=== PATIENT | male | born 1980 | race Two or more races ===

== ENCOUNTER 2024-08-06 22:58 | Inpatient (IN) | payer OTHER ==
[~2024-08-06] VITALS: Ht 177.8 cm; Wt 105.0 kg
[2024-08-06] MEDS: SODIUM CHLORIDE 0.9% 1,000 ML IV ONE ×2 (00:40→23:38)
[2024-08-06] MEDS: ACETAMINOPHEN 325 MG TAB PO ONE (23:16)
[2024-08-06] MEDS: metroNIDAZOLE 500MG/100ML 100 ML IV ONE (23:40)
[2024-08-06 23:48] LABS: Basophils # (auto) 0 10 ^3/uL (0-0.2); Basophils % (auto) 0.1 % (0.0-2.0); Eosinophils # (auto) 0 10 ^3/uL (0-0.8); Eosinophils % (auto) 0.1 % (0.0-7.0); Hematocrit 44.5 % (41.0-53.0); Hemoglobin 15.4 g/dL (13.5-17.5); Lymphocytes # (auto) 1.1 10 ^3/uL (0.4-5.4); Lymphocytes % (auto) 4.8 % (10.0-50.0); Mean Corpuscular Hgb Conc. 34.6 g/dL (32.0-36.0); Mean Corpuscular Volume 86.5 fL (80.0-100.0); Monocytes # (auto) 1.4 10 ^3/uL (0-1.3); Monocytes % (auto) 6.3 % (0.0-12.0); Neutrophils # (auto) 19.6 10 ^3/uL (1.6-8.6); Neutrophils % (auto) 88.7 % (37.0-80.0); Platelet Count (auto) 227 10^3/uL (140-450); Red Blood Cells 5.14 10^6/uL (4.5-5.90); Red Cell Distribution Width 13.3 % (11.8-14.3); White Blood Cell 22.1 10^3/uL (4.4-10.8)
[2024-08-06 23:56] LABS: Chloride 103 mmol/L (98-107); Potassium 4.1 mmol/L (3.5-5.1); Sodium 136 mmol/L (136-145)
[2024-08-06 23:57] LABS: Anion Gap 6 (5-15); Calcium 9.8 mg/dL (8.7-10.4); Carbon Dioxide 27 mmol/L (20-31)
[2024-08-07] VITALS (7 sets, daily range): BP systolic 104–114; BP diastolic 64–72; PULSE 85–107; RESP 14–18; TEMP 98–100.7; O2SAT 90–97
[2024-08-07 00:02] LABS: BUN/Creatinine Ratio 8.3 (10.0-20.0); Blood Urea Nitrogen 9 mg/dL (9-23); Glucose 119 mg/dL (74-106)
[2024-08-07 00:08] LABS: INR 1.12 (0.9-1.15); Partial Thromboplastin Time 26.2 SEC (24.5-34.5); Prothrombin Time 11.8 sec (9.3-11.8)
[2024-08-07] MEDS: CIPROFLOXACIN 400MG/200ML 200 ML IV ONE (00:40)
[2024-08-07] MEDS: ONDANSETRON HCL 4 MG/2 ML VIAL IV ONE (02:55)
[2024-08-07] MEDS: MORPHINE SULFATE 4 MG/ML SYR/VIAL IV ONE (02:55)
[2024-08-07] MEDS: HYDROcodone-ACET 5/325MG TAB PO PRN (05:18)
[2024-08-07] MEDS ORDERED: MORPHINE SULFATE INJ 2 MG/ml SYRG IV PRN (06:00)
[2024-08-07] MEDS ORDERED: DOCUSATE SOD 100 MG CAP PO PRN (06:00)
[2024-08-07] MEDS ORDERED: NITROGLYCERIN 0.4 MG SL TAB SL PRN (06:00)
[2024-08-07] MEDS: metroNIDAZOLE 500MG/100ML 100 ML IV SCH (06:20)
[2024-08-07] MEDS: SODIUM CHLORIDE 0.9% 1,000 ML IV SCH (06:20)
[2024-08-07] MEDS: ONDANSETRON HCL 4 MG/2 ML VIAL IV PRN (07:01)
[2024-08-07] MEDS: MORPHINE SULFATE INJ 2 MG/ml SYRG IV PRN (07:02)
[2024-08-07] MEDS: levoFLOXacin 500MG 100 ML IV ONE (07:30)
[2024-08-07 09:02] LABS: Urine Bacteria None Seen /hpf (None Seen)
[2024-08-07 09:14] LABS: Urine Blood 2+ /uL (Negative); Urine Clarity Clear (Clear); Urine Color Yellow (Yellow); Urine Protein, UAD 1+ (Negative); Urine Specific Gravity 1.037 (1.001-1.035); Urine Urobilinogen Normal (Negative); Urine WBC 5 /hpf (0 - 3)
[2024-08-07] MEDS ORDERED: ASCO500T11 PO (10:40)
[2024-08-07] MEDS ORDERED: GARL200T PO (10:40)
[2024-08-07] MEDS: LACTATED RINGER'S 2,200 ML IV ONE (13:41)
[2024-08-07] MEDS: LACTATED RINGER'S 1,000 ML IV SCH (13:50)
[2024-08-07] MEDS ORDERED: ceFAZolin 2 GM/D5W100ml 100 ML IV ONE (15:29)
[2024-08-07] MEDS ORDERED: ACETAMINOPHEN IV 100 ML IV ONE (15:29)
[2024-08-07] MEDS: GABAPENTIN 400 MG CAP PO ONE (15:30)
[2024-08-07] MEDS: ACETAMINOPHEN IV 1000 MG/100ML (10MG/ML) IV ONE (15:30)
[2024-08-07] MEDS: CELECOXIB 100 MG CAP PO ONE (15:30)
[2024-08-07] MEDS ORDERED: CELECOXIB 100 MG CAP ONE (15:36)
[2024-08-07] MEDS ORDERED: GABAPENTIN 400 MG CAP ONE (15:36)
[2024-08-07] MEDS ORDERED: DexAMETHasone SOD PHOS 10MG/1ML VIAL INJ ONE (15:38)
[2024-08-07] MEDS ORDERED: SUGAMMADEX 200mg/2ml Vial (100MG/ML) IV ONE (15:38)
[2024-08-07] MEDS ORDERED: KETOROLAC TROMETH 30 MG/ML 1ML VIAL ONE (15:38)
[2024-08-07] MEDS ORDERED: LIDOCAINE 2% (LOCAL ANESTH.) PF 5ml SDV ONE ×3 (15:38→16:55)
[2024-08-07] MEDS ORDERED: ONDANSETRON HCL 4 MG/2 ML VIAL ONE (15:38)
[2024-08-07] MEDS ORDERED: ROCURONIUM 10MG/ML 10ML VIAL IV ONE (15:39)
[2024-08-07] MEDS ORDERED: GLYCOPYRROLATE 0.2 MG/ML 1ML VIAL ONE (15:39)
[2024-08-07] MEDS ORDERED: PROPOFOL 10 MG/ML 20 ML IV ONE (15:39)
[2024-08-07] MEDS ORDERED: KETAMINE 50mg/ML 1ml syringe ONE (15:43)
[2024-08-07] MEDS ORDERED: fentaNYL CITRATE 100 MCG/2 ML VL ONE (15:45)
[2024-08-07] MEDS ORDERED: LIDOCAINE 1% HCL (LOCAL ANESTH.) INJ 20ML MDV ONE (16:04)
[2024-08-07] MEDS ORDERED: ESMOLOL HCL 10 ML IV ONE (16:48)
[2024-08-07] MEDS ORDERED: HYDROmorphone HCL 2 MG/ML VL/or syr IV PRN (17:30)
[2024-08-07] MEDS ORDERED: NALOXONE HCL 0.4 MG/ML VIAL IV PRN (17:30)
[2024-08-07] MEDS ORDERED: ePHEDrine SULFATE 50 MG/ML AMP IV PRN (17:30)
[2024-08-07] MEDS ORDERED: fentaNYL CITRATE 100 MCG/2 ML VL IV PRN (17:30)
[2024-08-07] MEDS ORDERED: FLUMAZENIL 0.1 MG/ML INJ 10ML MDV IV PRN (17:30)
[2024-08-07] MEDS ORDERED: oxyCODONE HCL 5MG TAB PO PRN (17:30)
[2024-08-07] MEDS ORDERED: ONDANSETRON HCL 4 MG/2 ML VIAL IV PRN (17:30)
[2024-08-07] MEDS ORDERED: hydrALAZINE HCL 20 MG/ML VL IV PRN (17:30)
[2024-08-08] VITALS (8 sets, daily range): BP systolic 104–125; BP diastolic 69–83; PULSE 75–80; RESP 17–19; TEMP 97.2–98.8; O2SAT 94–100
[2024-08-08 06:37] LABS: Basophils # (auto) 0 10 ^3/uL (0-0.2); Eosinophils # (auto) 0 10 ^3/uL (0-0.8); Eosinophils % (auto) 0.1 % (0.0-7.0); Hematocrit 38.3 % (41.0-53.0); Lymphocytes # (auto) 0.9 10 ^3/uL (0.4-5.4); Lymphocytes % (auto) 4.3 % (10.0-50.0); Mean Corpuscular Hemoglobin 29.5 pg (28.0-32.0); Mean Corpuscular Hgb Conc. 33.9 g/dL (32.0-36.0); Mean Corpuscular Volume 87.1 fL (80.0-100.0); Monocytes # (auto) 0.9 10 ^3/uL (0-1.3); Monocytes % (auto) 4.1 % (0.0-12.0); Neutrophils # (auto) 19.9 10 ^3/uL (1.6-8.6); Neutrophils % (auto) 91.5 % (37.0-80.0); Platelet Count (auto) 217 10^3/uL (140-450); Red Cell Distribution Width 13.7 % (11.8-14.3); White Blood Cell 21.8 10^3/uL (4.4-10.8)
[2024-08-08 06:49] LABS: Alanine Aminotransferase 13 U/L (7-40); Alkaline Phosphatase 60 U/L (46-116); Anion Gap 6 (5-15); Aspartate Aminotransferase 11 U/L (13-40); Blood Urea Nitrogen 12 mg/dL (9-23); Calcium 9.5 mg/dL (8.7-10.4); Carbon Dioxide 26 mmol/L (20-31); Chloride 107 mmol/L (98-107); Glucose 120 mg/dL (74-106); Potassium 4.1 mmol/L (3.5-5.1); Sodium 139 mmol/L (136-145)
[2024-08-08 06:50] LABS: Bilirubin, Total 0.5 mg/dL (0.2-1.0); Total Protein 6.3 g/dL (5.7-8.2)
[2024-08-08] MEDS: levoFLOXacin 500MG 100 ML IV SCH (09:48)
[2024-08-09] VITALS (8 sets, daily range): BP systolic 116–135; BP diastolic 72–88; PULSE 71–89; RESP 18–20; TEMP 98.1–99.1; O2SAT 94–96
[2024-08-09] MEDS: KETOROLAC TROMETH 30 MG/ML 1ML VIAL IV ONE (01:53)
[2024-08-09] MEDS: KETOROLAC TROMETH 30 MG/ML 1ML VIAL IV PRN (15:41)
[2024-08-10] VITALS (7 sets, daily range): BP systolic 108–146; BP diastolic 68–93; PULSE 57–78; RESP 16–22; TEMP 97.8–98.6; O2SAT 95–99
[2024-08-10 10:19] LABS: Basophils # (auto) 0 10 ^3/uL (0-0.2); Basophils % (auto) 0.1 % (0.0-2.0); Eosinophils # (auto) 0.1 10 ^3/uL (0-0.8); Eosinophils % (auto) 1.3 % (0.0-7.0); Hematocrit 38.1 % (41.0-53.0); Hemoglobin 12.9 g/dL (13.5-17.5); Lymphocytes # (auto) 1.3 10 ^3/uL (0.4-5.4); Lymphocytes % (auto) 11.5 % (10.0-50.0); Mean Corpuscular Hemoglobin 29.2 pg (28.0-32.0); Mean Corpuscular Hgb Conc. 33.8 g/dL (32.0-36.0); Mean Corpuscular Volume 86.5 fL (80.0-100.0); Monocytes # (auto) 0.8 10 ^3/uL (0-1.3); Monocytes % (auto) 6.8 % (0.0-12.0); Neutrophils # (auto) 8.9 10 ^3/uL (1.6-8.6); Neutrophils % (auto) 80.3 % (37.0-80.0); Platelet Count (auto) 275 10^3/uL (140-450); Red Cell Distribution Width 13.4 % (11.8-14.3); White Blood Cell 11.1 10^3/uL (4.4-10.8)
[2024-08-10] MEDS: ACETAMINOPHEN 325 MG TAB PO PRN (21:31)
[2024-08-11] VITALS (7 sets, daily range): BP systolic 131–138; BP diastolic 76–86; PULSE 55–70; RESP 19–21; TEMP 98–99.6; O2SAT 93–97
[2024-08-11] MEDS ORDERED: LEVO500T91 PO (13:20)
[2024-08-11] MEDS ORDERED: HYDR-4902 PO (13:20)
[2024-08-11] MEDS ORDERED: METR-344 PO (13:20)
== END 2024-08-11 15:10 | disposition home or self-care (01) | DRG 853 ==
LOC: ER 22:58 → TELE 08-07 06:00 → TELE-EAST 08-07 09:03
PROVIDERS: ADMIT Nurse Practitioner Family; ATTEND Family Medicine
PROC: 0DNW4ZZ Release Peritoneum, Percutaneous Endoscopic Approach (ICD-10-PCS; 2024-08-07)
PROC: 0DTJ4ZZ Resection of Appendix, Percutaneous Endoscopic Approach (ICD-10-PCS; principal; 2024-08-07 15:35)
DX: A41.9 Sepsis, unspecified organism (principal); K35.33 Acute appendicitis with perforation, localized peritonitis, and gangrene, with abscess; E86.0 Dehydration; K66.0 Peritoneal adhesions (postprocedural) (postinfection); E66.01 Morbid (severe) obesity due to excess calories; Z88.0 Allergy status to penicillin; Z79.899 Other long term (current) drug therapy; Z68.33 Body mass index [BMI] 33.0-33.9, adult
CPT/HCPCS: 36415; 74176; 80048; 80053; 81001; 85025; 85610; 85730; 87081; 96365; 96367; 96375; 97163; 99291; G0378; J0131; J1100; J1885; J1956; J2003; J2405; J2704; J3490

== ENCOUNTER 2024-08-19 14:02 | Inpatient (IN) | payer OTHER ==
[~2024-08-19] VITALS: Ht 175.3 cm; Wt 99.6 kg
[~2024-08-19 14:02] MED LIST: ASCO500T11 PO; GARL200T PO; HYDR-4902 PO; LEVO500T91 PO; METR-344 PO
--- NOTE | 2024-08-19 15:20 | ED.PDOC ---
GI ASSESSMENT HPI Comments HPI: Poor Historian. 44-year-old male comes to the emergency department for evaluation of abdominal pain in the last 2 hours after his MARYSE drain was removed. Patient underwent a laparoscopic procedure on August [address] Adorno for an appendicitis that ruptured. Patient had his drain removed today by Dr. Adorno in the clinic. Afterwards patient started developing some lower abdominal pain with nausea. He took some [place] at home. Last bowel movement was two in the morning. Patient presents here for evaluation of acute pain. Patient was noted to be tachycardic heart rate 118 blood pressure is 99/73. Patient is allergic to penicillin. Past Medcial History: Denies any Past Surgical History: Appendectomy on August [address] Adorno REVIEW OF SYSTEMS: CONSTITUTIONAL: Denies acute: fever, diaphoresis, chills, HEAD: Denies acute: headache, photophobia Eyes: Denies acute: Double vision, vision loss, eye pain, eye discharge. EARS: Denies acute: tinnitus, hearing loss, ear discharge, ear pain, THROAT: Denies acute: sore throat, swelling, difficulty swallowing , pain with swallowing, change in voice. NECK: Denies acute: neck pain, neck swelling, stiff neck. HEART: Denies acute : chest pain, palpitations, LUNGS: Denies acute: SOB, wheezing, cough, hemoptysis ABDOMEN: Denies acute: Vomiting, diarrhea, melena , hematemesis, hematochezia SKIN: Denies acute: rash, redness, lesions, itchiness. EXTREMITIES: Denies acute: calf pain, numbness, tingling, weakness, denies pain in extremity. Denies acute: Low back pain. Neuro: Denies acute: focal neurological deficit, motor or sensory focal neurological deficit, tremors, seizure like activity, confusion, dizziness, change in mental status, loss of bowel or bladder function, cauda equina like symptoms. : Denies acute: dysuria, hematuria, flank pain, increase in urinary frequency. PSYCH: Denies acute: hallucination, suicidal ideation, homicidal ideation. PHYSICAL EXAM: General: Moderate acute distress, awake and alert. Head: normocephalic, atraumatic. Neck: supple, trachea is midline, no swelling. Throat: Normal phonation. Eyes:, no erythema, no purulent discharge, no proptosis, no icterus. Heart: regular tachycardia, no significant murmur appreciated. Lungs: no apparent respiratory distress, Able to speak in full sentences. No wheezing, no rhonchi, no crackles. No stridors Clear to auscultation bilaterally. Abdomen: Suprapubic periumbilical and lower abdominal tender to palpation, non distended, soft, no guarding, no rebound, + bowel sounds. Neuro: Awake, Alert, oriented to name, self, situation, follows commands GCS=15. Speech is normal. Skin: no petechia, no purpura, no cyanosis, non-pale, not jaundice. Lower extremities: --no - Pitting edema no deformity, no focal swelling, no calf TTP. Makes eye contact. moves all four extremities. Face: no apparent facial droop. ED course: At this time 5:[address] Adorno the surgeon came and evaluated the patient. He reviewed the CT scan report and images. Patient is allergic to penicillin and levofloxacin. Levofloxacin causes him bradycardia. I could not order him Cipro. Cipro was canceled. Dr. Adorno recommends adding vancomycin. Time Seen by MD: 14:28 Reviewed Notes: Nurses Notes, Medications, Allergies Allergies: Coded Allergies: Levofloxacin (Verified Allergy, Severe, Bradycardia, 08/19/24) Penicillins (Verified Allergy, Unknown, 08/06/24) Home Meds Active Scripts Hydrocodone-Acetaminophen (Hydrocodone Bitartrate/AC 5-325 mg) 1 Tab Tab, 1 TAB PO QID PRN, #30 TAB Prov:CHANDRIKA VELASCO MD 08/11/24 Metronidazole (Flagyl) 500 Mg Tab, 1 TAB PO TID, #30 TAB Prov:CHANDRIKA VELASCO MD 08/11/24 Levofloxacin Hemihydrate (LEVAQUIN 500 MG) 500 Mg Tab, 1 TAB PO DAILY, #10 TAB Prov:CHANDRIKA VELASCO MD 08/11/24 Reported Medications Allium Sativan Extract (GARLIC) 200 Mg Tab, 1 TAB PO DAILY, TAB 08/07/24 Ascorbic Acid (VITAMIN C TABLET) 500 Mg Tb, 1 TAB PO DAILY, #30 TAB 3 Refills 08/07/24 Information Source: Patient Past Medical History Surgical History: Denies all surgeries Family History Family History: Unknown Social History Smoker: Non-Smoker Alcohol: Denies ETOH Use Drugs: Denies Drug Use Lives In: Home Was a procedure done? Was a procedure done?: No GI differential Dx Differential Diagnosis: Other (DDX include but not limited to diverticulitis, colitis, gastroenteritis, acute abdomen, SBO, enteritis, constipation, volvulus, appendicitis, Gallbladder disease, choledocolithiasis, ascending cholangitis, pancreatitis, intraAbdominal mass/neoplasm, hepatitis, UTI, pylonephritis, kidney stone, aneurysm, dissection, Inflammatory bowel disease, gastroparesis, ischemic bowel.) X-Ray, Labs, Meds, VS Vital Signs Date Time Temp Pulse Resp B/P (MAP) Pulse Ox O2 Delivery O2 Flow Rate FiO2 08/19/24 22:00 99.1 91 21 110/70 (83) 95 99.1 08/19/24 21:15 114/77 08/19/24 20:01 91 08/19/24 19:28 93 19 98 Room Air* 0 21 08/19/24 19:28 101.7 93 21 114/77 (89) 98 101.7 08/19/24 19:25 100/63 08/19/24 18:00 91 17 114/77 (89) 97 08/19/24 17:53 89 19 98 Room Air* 0 21 08/19/24 16:06 109/59 08/19/24 16:00 114 17 97 Room Air 08/19/24 16:00 98.9 114 17 109/59 (76) 97 98.9 08/19/24 15:49 98.0 118 21 99/73 (82) 97 Lab Test 08/19/24 17:46 08/19/24 15:23 Range/Units Lactic Acid Level 1.1 1.9 0.4-2.0 mmol/L White Blood Count 29.5 H 4.4-10.8 10^3/uL Red Blood Count 5.21 4.5-5.90 10^6/uL Hemoglobin 15.3 13.5-17.5 g/dL Hematocrit 44.5 41.0-53.0 % Mean Corpuscular Volume 85.5 80.0-100.0 fL Mean Corpuscular Hemoglobin 29.4 28.0-32.0 pg Mean Corpuscular Hemoglobin Concent 34.4 32.0-36.0 g/dL Red Cell Distribution Width 13.4 11.8-14.3 % Platelet Count 513 H 140-450 10^3/uL Mean Platelet Volume 7.1 6.9-10.8 fL Neutrophils (%) (Auto) 37.0-80.0 % Lymphocytes (%) (Auto) 10.0-50.0 % Monocytes (%) (Auto) 0.0-12.0 % Basophils (%) (Auto) 0.0-2.0 % Neutrophils # (Auto) 1.6-8.6 10 ^3/uL Lymphocytes # (Auto) 0.4-5.4 10 ^3/uL Monocytes # (Auto) 0-1.3 10 ^3/uL Differential Total Cells Counted 100.0 100 Neutrophils % (Manual) 86 H 37.0-80.0 Band Neutrophils % (Manual) 0 Lymphocytes % (Manual) 4 L 10.0-50.0 Monocytes % (Manual) 10 0-12 Eosinophils % (Manual) 0 0-7 Basophils % (Manual) 0 0.0-2.0 Metamyelocytes % (manual) 0 Myelocytes % (Manual) 0 Promyelocytes % (Manual) 0 Blast Cells % (Manual) 0 Reactive Lymphocytes 0 Platelet Estimate Increased Sodium Level 131 L 136-145 mmol/L Potassium Level 4.4 3.5-5.1 mmol/L Chloride Level 99 98-107 mmol/L Carbon Dioxide Level 26 20-31 mmol/L Anion Gap 6 5-15 Blood Urea Nitrogen 10 9-23 mg/dL Creatinine 0.98 0.700-1.30 mg/dL Glomerular Filtration Rate Calc 96 >90 mL/min BUN/Creatinine Ratio 10.2 10.0-20.0 Serum Glucose 132 H 74-106 mg/dL Calcium Level 10.0 8.7-10.4 mg/dL Magnesium Level 2.2 1.6-2.6 mg/dL Total Bilirubin 0.7 0.2-1.0 mg/dL Aspartate Amino Transferase (AST) 13 13-40 U/L Alanine Aminotransferase (ALT) 35 7-40 U/L Alkaline Phosphatase 71 46-116 U/L Total Protein 7.9 5.7-8.2 g/dL Albumin 4.8 3.2-4.8 g/dL Lipase 36 12-53 U/L Microbiology Date/Time Source Procedure Growth Status 08/19/24 15:23 Blood Blood Culture - Preliminary NO GROWTH AFTER 72 HOURS OF INCUBATION. Resulted [facility] [id number] [facility] [id number] Ph: [phone] DIAGNOSTIC IMAGING Diagnostic Imaging Report : [id number] Signed PATIENT: CAPRI MASCORRO ACCT: [id number] UNIT: [id number] : 1980 LOC: ER ROOM / BED: / AGE / SEX: 44 / M ADM STATUS: REG ER SERVICE 1512 ORDERING PHYSICIAN: NELSY BUCKNRE DO PROCEDURE(s): ABPLIV - CT AB PEL WITH IV CON ONLY REASON: post op Abd Pain ORDER NUMBER(s): [id number], ACCESSION NUMBER(s): [id number] Exam: CT CT AB PEL WITH IV CON ONLY History: post op Abd Pain COMPARISON: None Technique: Multidetector spiral CT of the abdomen and pelvis was performed from lung bases to pubic symphysis. Intravenous contrast was administered during this examination. Portal venous imaging was obtained. Axial, coronal and sagittal multiplanar reformats were performed by the technologist on a separate workstation. Radiation Dose : Abdomen/Pelvis: CTDIvol 16.71 mGy, DLP 963.88 mGy*cm. CONTRAST: Type of contrast: Omni 300 Contrast injected: 100 mL Findings: Lung Bases: No acute or significant lung base finding. Normal heart size. No pleural or pericardial effusion. Liver: The liver is normal in size. No focal lesions. Normal hepatic vascular enhancement. Gallbladder and biliary Tree: Unremarkable Spleen: Unremarkable Pancreas: The pancreas is normal in appearance without focal lesions or abnormal enhancement. Adrenal Glands: Unremarkable Kidneys: No hydronephrosis. Bilateral renal cysts measuring up to 12mm on the right. Bladder: Unremarkable Bowel: The stomach is grossly normal in appearance. There postsurgical changes in the right lower quadrant. There is free fluid with some peripheral enhancement measuring up to 56 mm in this region. There are loops of small bowel with wall thickening in this region. Ascites: There is free fluid in the left and dependent pelvis. Lymphadenopathy: No mesenteric, retroperitoneal or periportal lymphadenopathy. Abdominal wall and Mesentery: Unremarkable. Vasculature: The visualized abdominal aorta is normal in size and caliber. Abdominal and pelvic vessels demonstrate normal enhancement. Pelvic Organs: Unremarkable Musculoskeletal: No aggressive focal bony lesions, acute fractures or dislocation. IMPRESSION: 1. Postsurgical changes in the right lower quadrant with a possible developing abscess measuring up to 56mm. Additional free fluid in the left and dependent pelvis. Associated small bowel wall thickening. Findings could be related to a bowel leak. Clinical correlation and continued follow-up is recommended. Drainage of the abscess could be performed. Radiation optimization: All CT scans at this facility use at least one of these dose optimization techniques: Automated exposure control mA and/or kV adjustment per patient size (includes targeted exams where dose is matched to clinical indication) or iterative reconstruction. HS:Y ATED BY: ABE CONTRERAS MD DICTATED DATE/TIME: 08/19/241653 SIGNED BY: ABE CONTRERAS MD SIGNED DATE/TIME: 08/19/241653 CC: [place] [address] Ph: [phone] DIAGNOSTIC IMAGING Diagnostic Imaging Report : [id number] Signed PATIENT: CAPRI MASCORRO ACCT: [id number] UNIT: [id number] : 1980 LOC: ER ROOM / BED: / AGE / SEX: 44 / M ADM STATUS: REG ER SERVICE 1512 ORDERING PHYSICIAN: NELSY BUCKNER DO PROCEDURE(s): ABPLIV - CT AB PEL WITH IV CON ONLY REASON: post op Abd Pain ORDER NUMBER(s): [id number], ACCESSION NUMBER(s): [id number] Exam: CT CT AB PEL WITH IV CON ONLY History: post op Abd Pain COMPARISON: None Technique: Multidetector spiral CT of the abdomen and pelvis was performed from lung bases to pubic symphysis. Intravenous contrast was administered during this examination. Portal venous imaging was obtained. Axial, coronal and sagittal multiplanar reformats were performed by the technologist on a separate workstation. Radiation Dose : Abdomen/Pelvis: CTDIvol 16.71 mGy, DLP 963.88 mGy*cm. CONTRAST: Type of contrast: Omni 300 Contrast injected: 100 mL Findings: Lung Bases: No acute or significant lung base finding. Normal heart size. No pleural or pericardial effusion. Liver: The liver is normal in size. No focal lesions. Normal hepatic vascular enhancement. Gallbladder and biliary Tree: Unremarkable Spleen: Unremarkable Pancreas: The pancreas is normal in appearance without focal lesions or abnormal enhancement. Adrenal Glands: Unremarkable Kidneys: No hydronephrosis. Bilateral renal cysts measuring up to 12mm on the right. Bladder: Unremarkable Bowel: The stomach is grossly normal in appearance. There postsurgical changes in the right lower quadrant. There is free fluid with some peripheral enhancement measuring up to 56 mm in this region. There are loops of small bowel with wall thickening in this region. Ascites: There is free fluid in the left and dependent pelvis. Lymphadenopathy: No mesenteric, retroperitoneal or periportal lymphadenopathy. Abdominal wall and Mesentery: Unremarkable. Vasculature: The visualized abdominal aorta is normal in size and caliber. Abdominal and pelvic vessels demonstrate normal enhancement. Pelvic Organs: Unremarkable Musculoskeletal: No aggressive focal bony lesions, acute fractures or dislocation. IMPRESSION: 1. Postsurgical changes in the right lower quadrant with a possible developing abscess measuring up to 56mm. Additional free fluid in the left and dependent pelvis. Associated small bowel wall thickening. Findings could be related to a bowel leak. Clinical correlation and continued follow-up is recommended. Drainage of the abscess could be performed. Radiation optimization: All CT scans at this facility use at least one of these dose optimization techniques: Automated exposure control mA and/or kV adjustment per patient size (includes targeted exams where dose is matched to clinical indication) or iterative reconstruction. HS:Y ATED BY: ABE CONTRERAS MD DICTATED DATE/TIME: 08/19/241653 SIGNED BY: ABE CONTRERAS MD SIGNED DATE/TIME: 08/19/241653 CC: [place] [address] Ph: [phone] DIAGNOSTIC IMAGING Diagnostic Imaging Report : [id number] Signed PATIENT: CAPRI MASCORRO ACCT: [id number] UNIT: [id number] : 1980 LOC: ER ROOM / BED: / AGE / SEX: 44 / M ADM STATUS: REG ER SERVICE 1512 ORDERING PHYSICIAN: NELSY BUCKNER DO PROCEDURE(s): CXRP - CHEST PORTABLE REASON: post op Abd Pain ORDER NUMBER(s): [id number], ACCESSION NUMBER(s): [id number] CHEST RADIOGRAPH Indication:post op Abd Pain Technique: Single frontal view of the chest was obtained COMPARISON: None FINDINGS: Lines and Tubes: None Lungs: Bibasilar subsegmental atelectasis. Pleura: No effusion. No pneumothorax. Cardiomediastinal contours: Unremarkable Bones: Unremarkable IMPRESSION: Bibasilar subsegmental atelectasis. ATED BY: FELIX SHAH MD DICTATED DATE/TIME: 08/19/241557 SIGNED BY: FELIX SHAH MD SIGNED DATE/TIME: 08/19/241557 CC: Time of 1ST Reevaluation: 17:00 Reevaluation 1ST: Improved Time of 2ND Reevaluation: 17:03 (The case was discussed with the general surgeon team (HPI, physical exam, labs and diagnostic tests that were available at the time of disposition, ED course, treatment plan) on the phone. He is familiar with this patient. He recommends admission to the hospital and he will follow in consult. He agrees with our management of antibiotics and fluids and NPO. He recommends to contact IR if possible today for abscess drainage. Dr. Adorno) Reevaluation 2ND: Unchanged Time of 3RD Reevaluation: 17:06 (I tried to reach the radiologist however they are gone for the day. No radiologist available on campus at this time.) Consultation: Surgery Patient Education/Counseling: Diagnosis, Treatment Family Education/Counseling: Diagnosis, Treatment Comments Patient presented with the above HPI.---abdominal pain postop---workup was initiated. patient was found with the above mentioned diagnosis. Patient was given: Vancomycin, Cipro and Flagyl, Zofran fentanyl, Tylenol IV 1 g, multiple NS fluid bolus, fentanyl, sepsis protocol was initiated Patient ED course and VS have been stabilized. Patient has been reassessed in the ED and remained in a stable condition. Pertinent incidental findings were discussed with the patient and/or family. Patient/family voices understanding and is agreeable with plan. Patient has been observed in the ED adequate length of time to insure improvement/stability. patient was admitted to the medicine team for further evaluation and treatment of their presentation. All the reports of any imaging studies that were ordered by myself were reviewed by myself. Departure 1 Departure Time of Disposition: 16:06 Impression: Primary Impression: Post op infection Additional Impressions: Leukocytosis Sepsis Postoperative complication Intra-abdominal abscess Fever Disposition: 09 ADMITTED INPATIENT Admit to: Tele Condition: Guarded Discharged With: Self Critical Care Note Critical Care Time?: Yes (1 hr-critical care time only) NELSY BUCKNER DO Aug 19, 2024 15:20
[2024-08-19 15:37] LABS: Hemoglobin 15.3 g/dL (13.5-17.5)
[2024-08-19 15:38] LABS: Hematocrit 44.5 % (41.0-53.0); Mean Corpuscular Hemoglobin 29.4 pg (28.0-32.0); Mean Corpuscular Hgb Conc. 34.4 g/dL (32.0-36.0); Mean Corpuscular Volume 85.5 fL (80.0-100.0); Platelet Count (auto) 513 10^3/uL (140-450); Red Blood Cells 5.21 10^6/uL (4.5-5.90); Red Cell Distribution Width 13.4 % (11.8-14.3); White Blood Cell 29.5 10^3/uL (4.4-10.8)
[2024-08-19 15:42] LABS: Band Neutrophils % (manual) 0; Basophils % (manual) 0 (0.0-2.0); Blast Cells 0; Eosinophils % (manual) 0 (0-7); Metamyelocytes % 0; Myelocytes % 0; Promyelocytes % 0; Reactive Lymphocytes 0
[2024-08-19 15:52] LABS: Alanine Aminotransferase 35 U/L (7-40); Albumin 4.8 g/dL (3.2-4.8); Alkaline Phosphatase 71 U/L (46-116); Anion Gap 6 (5-15); Aspartate Aminotransferase 13 U/L (13-40); BUN/Creatinine Ratio 10.2 (10.0-20.0); Blood Urea Nitrogen 10 mg/dL (9-23); Carbon Dioxide 26 mmol/L (20-31); Chloride 99 mmol/L (98-107); Glucose 132 mg/dL (74-106); Lipase 36 U/L (12-53); Magnesium 2.2 mg/dL (1.6-2.6); Potassium 4.4 mmol/L (3.5-5.1); Sodium 131 mmol/L (136-145)
[2024-08-19 15:53] LABS: Bilirubin, Total 0.7 mg/dL (0.2-1.0); Total Protein 7.9 g/dL (5.7-8.2)
--- NOTE | 2024-08-19 16:00 | DVH ---
CHEST RADIOGRAPH Indication:post op Abd Pain Technique: Single frontal view of the chest was obtained COMPARISON: None FINDINGS: Lines and Tubes: None Lungs: Bibasilar subsegmental atelectasis. Pleura: No effusion. No pneumothorax. Cardiomediastinal contours: Unremarkable Bones: Unremarkable IMPRESSION: Bibasilar subsegmental atelectasis.
[2024-08-19] MEDS: ONDANSETRON HCL 4 MG/2 ML VIAL IV ONE (16:03)
[2024-08-19] MEDS: fentaNYL CITRATE 100 MCG/2 ML VL IV ONE ×3 (16:06→21:15)
[2024-08-19] MEDS: SODIUM CHLORIDE 0.9% 1,000 ML IV ONE ×3 (16:07→19:20)
[2024-08-19] MEDS: CIPROFLOXACIN 400MG/200ML 200 ML IV ONE (16:15)
[2024-08-19] MEDS: IOHEXOL 300 MG/ML 100ML BOTTLE IJ ONE (16:18)
[2024-08-19 16:34] LABS: Lymphocytes % (manual) 4 (10.0-50.0); Monocytes % (manual) 10 (0-12); Platelet Estimate Increased
--- NOTE | 2024-08-19 16:57 | DVH ---
Exam: CT CT AB PEL WITH IV CON ONLY History: post op Abd Pain COMPARISON: None Technique: Multidetector spiral CT of the abdomen and pelvis was performed from lung bases to pubic symphysis. Intravenous contrast was administered during this examination. Portal venous imaging was obtained. Axial, coronal and sagittal multiplanar reformats were performed by the technologist on a separate workstation. Radiation Dose : Abdomen/Pelvis: CTDIvol 16.71 mGy, DLP 963.88 mGy*cm. CONTRAST: Type of contrast: Omni 300 Contrast injected: 100 mL Findings: Lung Bases: No acute or significant lung base finding. Normal heart size. No pleural or pericardial effusion. Liver: The liver is normal in size. No focal lesions. Normal hepatic vascular enhancement. Gallbladder and biliary Tree: Unremarkable Spleen: Unremarkable Pancreas: The pancreas is normal in appearance without focal lesions or abnormal enhancement. Adrenal Glands: Unremarkable Kidneys: No hydronephrosis. Bilateral renal cysts measuring up to 12mm on the right. Bladder: Unremarkable Bowel: The stomach is grossly normal in appearance. There postsurgical changes in the right lower donna drant. There is free fluid with some peripheral enhancement measuring up to 56 mm in this region. The re are loops of small bowel with wall thickening in this region. Ascites: There is free fluid in the left and dependent pelvis. Lymphadenopathy: No mesenteric, retroperitoneal or periportal lymphadenopathy. Abdominal wall and Mesentery: Unremarkable. Vasculature: The visualized abdominal aorta is normal in size and caliber. Abdominal and pelvic vess els demonstrate normal enhancement. Pelvic Organs: Unremarkable Musculoskeletal: No aggressive focal bony lesions, acute fractures or dislocation. IMPRESSION: 1. Postsurgical changes in the right lower quadrant with a possible developing abscess measuring up t o 56mm. Additional free fluid in the left and dependent pelvis. Associated small bowel wall thickenin g. Findings could be related to a bowel leak. Clinical correlation and continued follow-up is recomme nded. Drainage of the abscess could be performed. Radiation optimization: All CT scans at this facility use at least one of these dose optimization kendal hniques: Automated exposure control mA and/or kV adjustment per patient size (includes targeted exams where dose is matched to clinical indication) or iterative reconstruction. HS:Y
[2024-08-19] MEDS: metroNIDAZOLE 500MG/100ML 100 ML IV ONE (17:33)
[2024-08-19 17:53] VITALS: PULSE 89; RESP 19; O2SAT 98
[2024-08-19] MEDS ORDERED: VANCOMYCIN PER PHARMACY 0 MG IV SCH (18:00)
--- NOTE | 2024-08-19 18:16 | DVHINCON2 ---
Date of service: Aug 19, 2024 Family History: FH: heart disease G8 MOTHER G8 FATHER G8 BROTHER Parents G8 MOTHER G8 FATHER Allergies: Coded Allergies: Levofloxacin (Verified Allergy, Severe, Bradycardia, 08/19/24) Penicillins (Verified Allergy, Unknown, 08/06/24) Home Meds Active Scripts Hydrocodone-Acetaminophen (Hydrocodone Bitartrate/AC 5-325 mg) 1 Tab Tab, 1 TAB PO QID PRN, #30 TAB Prov:CHANDRIKA VELASCO MD 08/11/24 Metronidazole (Flagyl) 500 Mg Tab, 1 TAB PO TID, #30 TAB Prov:CHANDRIKA VELASCO MD 08/11/24 Levofloxacin Hemihydrate (LEVAQUIN 500 MG) 500 Mg Tab, 1 TAB PO DAILY, #10 TAB Prov:CHANDRIKA VELASCO MD 08/11/24 Reported Medications Allium Sativan Extract (GARLIC) 200 Mg Tab, 1 TAB PO DAILY, TAB 08/07/24 Ascorbic Acid (VITAMIN C TABLET) 500 Mg Tb, 1 TAB PO DAILY, #30 TAB 3 Refills 08/07/24 Current Medications Current Medications Medications (Trade) Dose Ordered Sig/Leonela Route PRN Reason Start Time Stop Time Status Last Admin Vancomycin HCl 0 ml @ 0 mls/hr UD IV 08/19/24 18:00 UNV Vital Signs Vital Signs Date Time Temp Pulse Resp B/P (MAP) Pulse Ox O2 Delivery O2 Flow Rate FiO2 08/19/24 17:53 89 19 98 Room Air* 0 21 08/19/24 16:06 109/59 08/19/24 16:00 98.9 98.9 Labs/Diagnostic Data Labs Test 08/19/24 17:46 08/19/24 15:23 Range/Units White Blood Count 29.5 H 4.4-10.8 10^3/uL Red Blood Count 5.21 4.5-5.90 10^6/uL Hemoglobin 15.3 13.5-17.5 g/dL Hematocrit 44.5 41.0-53.0 % Mean Corpuscular Volume 85.5 80.0-100.0 fL Mean Corpuscular Hemoglobin 29.4 28.0-32.0 pg Mean Corpuscular Hemoglobin Concent 34.4 32.0-36.0 g/dL Red Cell Distribution Width 13.4 11.8-14.3 % Platelet Count 513 H 140-450 10^3/uL Mean Platelet Volume 7.1 6.9-10.8 fL Neutrophils (%) (Auto) 37.0-80.0 % Lymphocytes (%) (Auto) 10.0-50.0 % Monocytes (%) (Auto) 0.0-12.0 % Basophils (%) (Auto) 0.0-2.0 % Neutrophils # (Auto) 1.6-8.6 10 ^3/uL Lymphocytes # (Auto) 0.4-5.4 10 ^3/uL Monocytes # (Auto) 0-1.3 10 ^3/uL Differential Total Cells Counted 100.0 100 Neutrophils % (Manual) 86 H 37.0-80.0 Band Neutrophils % (Manual) 0 Lymphocytes % (Manual) 4 L 10.0-50.0 Monocytes % (Manual) 10 0-12 Eosinophils % (Manual) 0 0-7 Basophils % (Manual) 0 0.0-2.0 Metamyelocytes % (manual) 0 Myelocytes % (Manual) 0 Promyelocytes % (Manual) 0 Blast Cells % (Manual) 0 Reactive Lymphocytes 0 Platelet Estimate Increased Sodium Level 131 L 136-145 mmol/L Potassium Level 4.4 3.5-5.1 mmol/L Chloride Level 99 98-107 mmol/L Carbon Dioxide Level 26 20-31 mmol/L Anion Gap 6 5-15 Blood Urea Nitrogen 10 9-23 mg/dL Creatinine 0.98 0.700-1.30 mg/dL Glomerular Filtration Rate Calc 96 >90 mL/min BUN/Creatinine Ratio 10.2 10.0-20.0 Serum Glucose 132 H 74-106 mg/dL Calcium Level 10.0 8.7-10.4 mg/dL Magnesium Level 2.2 1.6-2.6 mg/dL Total Bilirubin 0.7 0.2-1.0 mg/dL Aspartate Amino Transferase (AST) 13 13-40 U/L Alanine Aminotransferase (ALT) 35 7-40 U/L Alkaline Phosphatase 71 46-116 U/L Total Protein 7.9 5.7-8.2 g/dL Albumin 4.8 3.2-4.8 g/dL Lipase 36 12-53 U/L Assessment [id number] RLQ INTRAABD FLUID COLLECTION/ABSCESS S/P LAP APPENDECTOMY DRAINAGE OF INTRAABD ABSCESS FOR RUPTURED APPENDICITIS AFEBRILE VSS ABD SOFT TENDER RLQ REPEAT CT SCAN PELVIC FLUID COLLECTION CONSIDER IR DRAINAGE JENNIFER NPO IV ABX REPEAT CT SCAN ABD PELVIS WITH PO CONTRAST INDICATED BASED UPON ONGOING EVAL NURSE AND FAMILY AT BEDSIDE Plan discussed with: Patient DAYANARA SADLER MD Aug 19, 2024 18:16
--- NOTE | 2024-08-19 18:43 | DVHINCON2 ---
DATE OF CONSULTATION: 08/19/2024 HISTORY OF PRESENT ILLNESS: This patient is 44 years old, coming to the Emergency Room known to me from previous surgery. He had a recent appendectomy done on 08/07/2024 at this facility. He was found to have acute ruptured appendicitis with intra-abdominal abscess. He underwent urgent surgery, drainage of the abscess as well as laparoscopic appendectomy. He had a smooth postoperative recovery with no complications when was discharged with a drainage tube in place that was draining and it was draining clear fluid and he had no issues during his stay at home and then he was seen by me in my office with no complaints of pain. No nausea, vomiting. No fever or chills. No issues with bowel activity. He had a drainage tube in place that was not draining much, minimal drainage and there was no tenderness. Wounds were healing well with no complications and then decision was made to remove the drainage tube. Following that, he was fine. He left the hospital with no complaints of pain, but then comes back to the Emergency Room with abdominal pain and repeat CT scan was done, labs were done and the white cell count came back at 29.5 and his imaging studies showed a possibility of a new collection that presumably was not related to the previous surgery or might have not been drainable with the drainage tube that was in place, but it was related to the previous surgery that was in a different location away from the drainage tube or the drainage tube was not functioning well for the collection to be drained out, but having no symptoms and having no fevers, this was not suspected but based upon his clinical exam in the Emergency Room when I got to see him, he was in pain and his white cell count was elevated and the CAT scan showed this right lower quadrant fluid collection. PAST MEDICAL HISTORY: Please refer to records. PAST SURGICAL HISTORY: As mentioned above. PHYSICAL EXAMINATION: VITAL SIGNS: Afebrile, stable signs. HEENT: With no evidence of pallor, cyanosis, or jaundice. NECK: Supple, nontender with no thyromegaly or lymphadenopathy. CHEST AND LUNGS: Clear. HEART: Within normal limits. ABDOMEN: Soft. He is tender in the right lower abdomen. Minimal rebound. EXTREMITIES: Unremarkable. NEUROLOGIC: Intact. The drain site does not appear to be having any drainage. The dressing is dry. CLINICAL IMPRESSION: Based upon my clinical impression and imaging, there is a residual or new right lower quadrant fluid collection, suspected abscess based upon his high white cell count and pain and fever. PLAN: Will be to keep him n.p.o. with close observation and also consider IR drainage and based upon that evaluation, resolution is expected and if IR drainage is not possible, then he might need open surgery based upon ongoing evaluation and possibly repeat CT scan to determine the need for surgery. MD ROHIT Magaña/VERNELL TID: [id number] RECEIPT: [id number] cc: Karlos Olgiun
[2024-08-19] MEDS: VANCOMYCIN 1GM/200ML PREMIX IV SCH (19:20)
[2024-08-19 19:28] VITALS: PULSE 93; RESP 19; O2SAT 98
[2024-08-19] MEDS: ACETAMINOPHEN IV 1000 MG/100ML (10MG/ML) IV ONE (19:56)
[2024-08-19] MEDS ORDERED: ONDANSETRON HCL 4 MG/2 ML VIAL IV PRN (22:45)
[2024-08-19] MEDS ORDERED: NITROGLYCERIN 0.4 MG SL TAB SL PRN (22:45)
[2024-08-19] MEDS: SODIUM CHLORIDE 0.9% 1,000 ML IV SCH (23:16)
[2024-08-19] MEDS: ENOXAPARIN SOD 40 MG/0.4 ML SYRINGE SC SCH (23:17)
[2024-08-19] MEDS: HYDROcodone-ACET 5/325MG TAB PO PRN (23:18)
[2024-08-19] MEDS: KETOROLAC TROMETH 30 MG/ML 1ML VIAL IV ONE (23:51)
[2024-08-20 01:08] LABS: Urine Bacteria None Seen /hpf (None Seen)
[2024-08-20 01:17] LABS: Urine Blood TRACE /uL (Negative); Urine Clarity Clear (Clear); Urine Color Yellow (Yellow); Urine Mucus FEW (None Seen); Urine Protein, UAD TRACE (Negative); Urine Specific Gravity 1.049 (1.001-1.035); Urine Urobilinogen Normal (Negative); Urine WBC <1 /hpf (0 - 3); Urine pH 6.5 (5.0-9.0)
--- NOTE | 2024-08-20 01:18 | DVHHPRES ---
History of Present Illness Resident Creating Document: TRES STAFFORD RESIDENT History of Present Illness This is a 44-year-old male status post appendectomy 2 weeks ago following a ruptured appendix presented to the ED with a chief complaint of severe right lower quadrant abdominal pain with nausea for 1 day prior to this admission. The patient, Kirsten, presents 25 days post-appendectomy with a chief complaint of persistent abdominal pain, particularly on the right side. The pain is described as excruciating, with a severity of 10 out of 10, and has a dull quality with intermittent sharp episodes. The patient denies any vomiting but reports normal but painful bowel movements this morning. He also reports experiencing pain in the groin area following tube removal. The patient has no history of kidney stones or hernia, and a recent ultrasound at [facility] showed no stones. Past Medical History No significant past medical history Past Surgical History Laparoscopic appendectomy 2 weeks ago Family History: None Family History Family history of heart disease( both parents) Smoke: No ALCOHOL: none Drugs: None Lives: with Family Review of Systems Constitutional: No: Fever, Chills, Sweats, Weakness, Malaise, Other Eyes: No: Pain, Vision change, Conjunctivae inflammation, Eyelid inflammation, Other, Redness ENT: No: Ear pain, Ear discharge, Nose pain, Nose discharge, Nose congestion, Mouth pain, Mouth swelling, Throat pain, Throat swelling, Other Respiratory: Shortness of breath; No: Cough, Dry, SOB with excertion, Wheezing, Hemoptysis, Pleuritic Pain, Sputum, Wheezing, Other Cardiovascular: No: Chest Pain, Palpitations, Orthopnea, Paroxysmal Noc. Dyspnea, Edema, Lt Headedness, Other Gastrointestinal: Nausea, Abdominal Pain; No: Vomiting, Diarrhea, Constipation, Melena, Hematochezia, Other Genitourinary: No Dysuria, No Frequency, No Incontinence, No Hematuria, No Retention, No Other Musculoskeletal: No: other, neck pain, shoulder pain, arm pain, back pain, hand pain, leg pain, foot pain Skin: No: Rash, Lesions, Jaundice, Bruising, Other Neurological: No: Weakness, Numbness, Incoordination, Change in speech, Confusion, Seizures, Other Allergies: Coded Allergies: Levofloxacin (Verified Allergy, Severe, Bradycardia, 08/19/24) Penicillins (Verified Allergy, Unknown, 08/06/24) Medications Current Medications Medications Dose Ordered Sig/Leonela Route Start Time Stop Time Status Last Admin Dose Admin Vancomycin HCl 0 ml @ 0 mls/hr UD IV 08/19/24 18:00 UNV Sodium Chloride 1,000 ml @ 75 mls/hr [id number] IV 08/19/24 22:45 08/19/24 23:16 75 MLS/HR Acetaminophen 325 mg Q4HP PRN PO 08/19/24 22:45 Acetaminophen/ Hydrocodone Bitart 1 tab Q4HP PRN PO 08/19/24 22:45 08/19/24 23:18 1 TAB Ondansetron HCl 4 mg Q4HP PRN IV 08/19/24 22:45 Enoxaparin Sodium 40 mg DAILY SC 08/19/24 11:00 08/19/24 23:17 40 MG Nitroglycerin 0.4 mg Q5MINP PRN SL 08/19/24 22:45 Ketorolac Tromethamine 30 mg Q6HPRN PRN IV 08/20/24 00:30 08/25/24 00:29 Piperacillin Sod/ Tazobactam Sod 100 ml @ 25 mls/hr Q6HR IV 08/20/24 06:00 UNV Pantoprazole Sodium 40 mg DAILY IV 08/20/24 10:00 Exam Vital Signs Vital Signs Date Time Temp Pulse Resp B/P (MAP) Pulse Ox O2 Delivery O2 Flow Rate FiO2 08/20/24 00:00 81 08/20/24 00:00 17 97/66 (76) 96 08/19/24 23:25 99.1 99.1 08/19/24 19:28 Room Air* 0 21 General Appearance: Alert, Oriented X3, Cooperative, mild distress HEENT: Atraumatic, PERRLA, EOMI, Mucous membr. moist/pink Respiratory: Clear to auscultation, Normal air movement Cardiovascular: Regular rate, Normal S1, Normal S2, No murmurs Abdominal: Other (Abdomen is mildly distended, tenderness in the right lower quadrant, bowel sounds present) Extremities: No clubbing, No cyanosis, No edema, Normal pulses, No tenderness/swelling Skin: No rashes, No breakdown, No significant lesion Neuro: Normal gait, Normal speech, Strength at 5/5 X4 ext, Normal tone, Sensation intact, Other (Grossly intact cranial nerves) Psych/Mental Status: Mental status NL, Mood NL Labs/Xrays Labs Test 08/19/24 17:46 08/19/24 15:23 Range/Units Lactic Acid Level 1.1 0.4-2.0 mmol/L White Blood Count 29.5 H 4.4-10.8 10^3/uL Red Blood Count 5.21 4.5-5.90 10^6/uL Hemoglobin 15.3 13.5-17.5 g/dL Hematocrit 44.5 41.0-53.0 % Mean Corpuscular Volume 85.5 80.0-100.0 fL Mean Corpuscular Hemoglobin 29.4 28.0-32.0 pg Mean Corpuscular Hemoglobin Concent 34.4 32.0-36.0 g/dL Red Cell Distribution Width 13.4 11.8-14.3 % Platelet Count 513 H 140-450 10^3/uL Mean Platelet Volume 7.1 6.9-10.8 fL Neutrophils (%) (Auto) 37.0-80.0 % Lymphocytes (%) (Auto) 10.0-50.0 % Monocytes (%) (Auto) 0.0-12.0 % Basophils (%) (Auto) 0.0-2.0 % Neutrophils # (Auto) 1.6-8.6 10 ^3/uL Lymphocytes # (Auto) 0.4-5.4 10 ^3/uL Monocytes # (Auto) 0-1.3 10 ^3/uL Differential Total Cells Counted 100.0 100 Neutrophils % (Manual) 86 H 37.0-80.0 Band Neutrophils % (Manual) 0 Lymphocytes % (Manual) 4 L 10.0-50.0 Monocytes % (Manual) 10 0-12 Eosinophils % (Manual) 0 0-7 Basophils % (Manual) 0 0.0-2.0 Metamyelocytes % (manual) 0 Myelocytes % (Manual) 0 Promyelocytes % (Manual) 0 Blast Cells % (Manual) 0 Reactive Lymphocytes 0 Platelet Estimate Increased Sodium Level 131 L 136-145 mmol/L Potassium Level 4.4 3.5-5.1 mmol/L Chloride Level 99 98-107 mmol/L Carbon Dioxide Level 26 20-31 mmol/L Anion Gap 6 5-15 Blood Urea Nitrogen 10 9-23 mg/dL Creatinine 0.98 0.700-1.30 mg/dL Glomerular Filtration Rate Calc 96 >90 mL/min BUN/Creatinine Ratio 10.2 10.0-20.0 Serum Glucose 132 H 74-106 mg/dL Calcium Level 10.0 8.7-10.4 mg/dL Magnesium Level 2.2 1.6-2.6 mg/dL Total Bilirubin 0.7 0.2-1.0 mg/dL Aspartate Amino Transferase (AST) 13 13-40 U/L Alanine Aminotransferase (ALT) 35 7-40 U/L Alkaline Phosphatase 71 46-116 U/L Total Protein 7.9 5.7-8.2 g/dL Albumin 4.8 3.2-4.8 g/dL Lipase 36 12-53 U/L Assessment/Plan Assessment/Plan Assessment and plan: # Right lower quadrant abdominal pain likely due to intra-abdominal abscess; s/p appendectomy - Patient underwent laparoscopic appendectomy 2 weeks ago for ruptured appendix - CT scan of the abdomen pelvis revealed Postsurgical changes in the right lower quadrant with a possible developing abscess measuring up to 56mm. Additional free fluid in the left and dependent pelvis - WBC count is 29.5 and lipase is normal. - Pt is NPO - IV normal saline at 75 mL/hour - IV Toradol 30 mg q.6 p.r.n.( patient is allergic to morphine) - IV ondansetron 4 mg q.4 p.r.n. - Started IV vancomycin as per pharmacy and IV Zosyn 3.375 mg q.6 hours - Surgery evaluated the patient and recommended IR drainage for possible intra- abdominal abscess # PUD prophylaxis - Protonix 40 mg IV daily # DVT prophylaxis - Lovenox 40 mg sc daily Goal of care discussed with the patient for more than 20 minutes full code Plan of treatment discussed with Dr. Vegas Plan discussed with: Patient, Other My Orders Orders - TRES STAFFORD RESIDENT Procedure Category Date Status Time Admit ADMIT 08/19/24 Transmitted 22:43 Allergies MAGUI 08/19/24 In Process 22:43 Code Status CODE 08/19/24 Transmitted 22:43 Sodium Chloride 0.9% PHA 08/19/24 In Process 22:45 Oxygen Per Hour RT 08/19/24 Transmitted 22:43 Acetaminophen Tablet PHA 08/19/24 In Process (Tylenol Tablet) 22:45 Hydrocodone-Acet PHA 08/19/24 In Process 5/325mg Tab (Kathryn 22:45 Ondansetron Hcl PHA 08/19/24 In Process (Zofran) 22:45 Complete Blood Count LAB 08/20/24 Logged 04:00 Comprehensive LAB 08/20/24 Logged Metabolic Panel 04:00 Clear Liq Diet DIET 08/20/24 Transmitted Breakfast Enoxaparin Sodium PHA 08/19/24 In Process (Lovenox) 11:00 Nitroglycerin PHA 08/19/24 In Process Sublingual (Ntrostat 22:45 Oxygen By Nasal RT 08/19/24 Transmitted Cannula 22:43 Stat Ekg For Chest MAGUI 08/19/24 In Process Pain 22:43 Notify Md Of Changes MAGUI 08/19/24 In Process From Base 22:43 Audio Installer For MAGUI 08/19/24 In Process 24 Hours 22:43 Emergency Dysrhythmia MAGUI 08/19/24 In Process Protocol 22:43 Rhythm Strips Once MAGUI 08/19/24 In Process Every Shift 22:43 Ketorolac Injection PHA 08/20/24 In Process (Toradol Injection) 00:30 Piperacillin-Tazob PHA 08/20/24 Pending 3.375gm (Zosyn 3.375g 06:00 Pantoprazole PHA 08/20/24 In Process (Protonix) 10:00 PTPTT LAB 08/20/24 Logged 00:22 Drug Screen LAB 08/20/24 Logged 00:23 Thyroid Stimulating LAB 08/20/24 Logged Hormone 00:23 Vitamin B12 LAB 08/20/24 Logged 00:23 Vitamin D, 25-Hydroxy LAB 08/20/24 Logged 00:23 Date of Service: Aug 19, 2024 Billing Provider: DIANNE VEGAS MD Common Visit Codes: [id number] INP/OBS CARE (HIGH) TRES STAFFORD RESIDENT Aug 20, 2024 01:17 DIANNE VEGAS MD Aug 22, 2024 08:24
[2024-08-20 01:35] LABS: Amphetamine Screen, Urine Neg (NEGATIVE); Barbiturate Scree,Urine Neg (NEGATIVE); Benzodiazephine Screen, Urine Neg (NEGATIVE); Cannabinoid Screen, Urine Neg (NEGATIVE); Cocaine Screen, Urine Neg (NEGATIVE); Opiate Scree,Urine Pos (NEGATIVE); Phencyclidine Screen, Urine Neg (NEGATIVE)
[2024-08-20 05:00] VITALS: BP 98/65; PULSE 78; RESP 18; TEMP 98.4; O2SAT 97
[2024-08-20] MEDS ORDERED: PIPERACILLIN-TAZOB 3.375GM 100 ML IV SCH (06:00)
[2024-08-20] MEDS: KETOROLAC TROMETH 30 MG/ML 1ML VIAL IV PRN (06:26)
[2024-08-20] MEDS: VANCOMYCIN 1.75GM/350ML IV ONE (08:50)
[2024-08-20] MEDS: PANTOPRAZOLE 40 MG/10 ML VIAL INJ IV SCH ×2 (08:51→22:09)
[2024-08-20 09:00] VITALS: BP 103/67; PULSE 89; RESP 18; TEMP 98.4; O2SAT 94
[2024-08-20 10:06] LABS: Basophils # (auto) 0 10 ^3/uL (0-0.2); Basophils % (auto) 0.2 % (0.0-2.0); Eosinophils # (auto) 0.1 10 ^3/uL (0-0.8); Eosinophils % (auto) 0.3 % (0.0-7.0); Hematocrit 38.6 % (41.0-53.0); Hemoglobin 12.9 g/dL (13.5-17.5); Lymphocytes # (auto) 0.6 10 ^3/uL (0.4-5.4); Lymphocytes % (auto) 2.6 % (10.0-50.0); Mean Corpuscular Hemoglobin 29.2 pg (28.0-32.0); Mean Corpuscular Hgb Conc. 33.4 g/dL (32.0-36.0); Mean Corpuscular Volume 87.4 fL (80.0-100.0); Monocytes % (auto) 4.2 % (0.0-12.0); Neutrophils # (auto) 22.8 10 ^3/uL (1.6-8.6); Neutrophils % (auto) 92.7 % (37.0-80.0); Platelet Count (auto) 378 10^3/uL (140-450); Red Blood Cells 4.42 10^6/uL (4.5-5.90); Red Cell Distribution Width 13.6 % (11.8-14.3); White Blood Cell 24.6 10^3/uL (4.4-10.8)
[2024-08-20 10:17] LABS: Alanine Aminotransferase 23 U/L (7-40); Albumin 3.7 g/dL (3.2-4.8); Alkaline Phosphatase 61 U/L (46-116); Anion Gap 6 (5-15); Aspartate Aminotransferase 11 U/L (13-40); BUN/Creatinine Ratio 13.4 (10.0-20.0); Bilirubin, Total 0.6 mg/dL (0.2-1.0); Blood Urea Nitrogen 11 mg/dL (9-23); Carbon Dioxide 25 mmol/L (20-31); Chloride 105 mmol/L (98-107); Glucose 101 mg/dL (74-106); Potassium 4.4 mmol/L (3.5-5.1); Total Protein 6.1 g/dL (5.7-8.2)
[2024-08-20 10:23] LABS: Sodium 136 mmol/L (136-145)
[2024-08-20 10:26] LABS: INR 1.34 (0.9-1.15); Partial Thromboplastin Time 29.6 SEC (24.5-34.5); Prothrombin Time 13.9 sec (9.3-11.8)
--- NOTE | 2024-08-20 10:58 | DVHPNRES ---
Progress Note Date Seen: Aug 20, 2024 Resident Creating Document: MIHAI GONZALES RESIDENT Has the PT tested + for MRSA If YES, has PT been informed?: No Medical Necessity Reason Pt with a Central, PICC or Fol: No Subjective Patient reports: No new complaints Changes from previous H/P or p: No Changes Review of Systems: HEENT:Normal, CVS:Normal, RESPIRATORY:Normal, GI:Abnormal (Abdominal pain, nausea, constipation, right lower abdomen swelling.), :Normal, MSK:Normal, NEURO:Normal Objective vital signs Vital Sign Date Time Temp Pulse Resp B/P (MAP) Pulse Ox O2 Delivery O2 Flow Rate FiO2 08/20/24 09:00 98.4 89 18 103/67 (79) 94 98.4 08/19/24 19:28 Room Air* 0 21 Total Intake and Output 08/19/24 08/19/24 08/20/24 15:00 23:00 07:00 Intake Total 4500 ml 0 ml Output Total 0 ml Balance 4500 ml 0 ml medications Current Medications Medications Dose Ordered Sig/Leonela Route Start Time Stop Time Status Last Admin Dose Admin Vancomycin HCl 0 ml @ 0 mls/hr UD IV 08/19/24 18:00 Acetaminophen 325 mg Q4HP PRN PO 08/19/24 22:45 Acetaminophen/ Hydrocodone Bitart 1 tab Q4HP PRN PO 08/19/24 22:45 08/19/24 23:18 1 TAB Ondansetron HCl 4 mg Q4HP PRN IV 08/19/24 22:45 Enoxaparin Sodium 40 mg DAILY SC 08/19/24 11:00 08/19/24 23:17 40 MG Nitroglycerin 0.4 mg Q5MINP PRN SL 08/19/24 22:45 Ketorolac Tromethamine 30 mg Q6HPRN PRN IV 08/20/24 00:30 08/25/24 00:29 08/20/24 06:26 30 MG Vancomycin HCl 200 ml @ 200 mls/hr Q8H IV 08/20/24 17:00 Sodium Chloride 1,000 ml @ 150 mls/hr Q6H40M IV 08/20/24 10:15 Meropenem 50 ml @ 50 mls/hr Q8HR IV 08/20/24 14:00 UNV Pantoprazole Sodium 40 mg BID IV 08/20/24 10:30 UNV Examination: GENERAL:Normal, HEENT:Normal, NECK:Normal, LUNGS:Normal, CVS:Normal, ABDOMEN:Abnormal (Tenderness on right lower quadrant, swelling, Rovsing positive. BS positive, passing flatus, surgical ports intact and clean. BS positive. ), MSK:Normal, SKIN:Normal, NEURO:Normal laboratory and microbiology Laboratory Tests 08/20/24 09:09 Test 08/20/24 09:09 Range/Units Serum Glucose 101 74-106 mg/dL Labs and/or images reviewed: Labs reviewed by me, Image(s) reviewed by me Problem List/Assessment/Plan Problem List/Assessment/Plan Hospital Course: Mr. Donald 44-year-old male, Past medical history significant for recent ruptured appendix status post appendectomy, 25 days post surgically, presented with severe right lower quadrant dull abdominal pain, sudden onset and at peak rated 10 out of 10 associated with intermittent sharp episodes, chills, malaise and nausea. He reports painful bowel movements and groin pain after MARYSE drain removal post surgically that gradually developed to the presenting symptoms. Patient denies vomiting, bleeding, chest pain, shortness of breath, syncope or other GI symptoms. Recent ultrasound in [facility] ruled out renal stone. Detailed discussion with Dr. Adorno /General surgery and discuss further plan. # Post surgical intra-abdominal abscess: presented with worsening pain, nausea And chills. Due to recent instrumentation, hospitalization we will cover broadly , consulted surgery. NPO for now. IV fluid, planning for immediate drainage. Given patient's penicillin allergy history and concern for zosyn use by pharmacy, we will cover with IV meropenem (Gram -ves including Pseudomonas coverage) and vancomycin ( for staph aureus coverage.) Follow blood culture. pain management with NSAIDs, sq.6 IV Toradol 30 mg, given allergy to morphine. As needed Zofran. Postdrainage culture to follow closely as well. Appreciate surgery input. Interval CT abdomen pelvis with oral contrast tomorrow. Robust antibiotic treatment with noninvasive IR drainage on Thursday. # Sepsis due to above: patient with source of infection right lower quadrant abdominal abscess with SIRS response: tachycardia, fever, WBC was 29.5 saving sepsis protocol initiated, 30 cc/kg IV fluid given, continuing fluid with 150 cc/hour for now. Goal to keep a map over 65 mm of mercury. Lactate negative Reassuring. # History of Status post ruptured appendix needing surgical intervention: status post laparoscopic appendicectomy by Dr. Adorno, postsurgical day 26 # Known allergic to fluoroquinolones, penicillins and morphine. Although patient has less chance of cross reaction with cephalosporins, given active sepsis we will consider so far out of alternate antibiotics And pain medications. # Bibasilar atelectasis: likely due to acute abdominal pain: at room air, needing incentive spirometry after addressing the intra-abdominal pathology. # normocytic anemia: Presented with 15.3, now hemoglobin 12.9, likely dilution, close monitoring, repeat CBC tomorrow. Healthy gentleman with a transfusion threshold of 7 or less of hemoglobin. FOBT to rule out occult GI bleeding. # Intra-abdominal viscus rupture unlikely: Given no free gas under the diaphragm both in CT/ upright chest x-ray, less likely. We will continue monitoring. in doubt repeat stat upright chest x-ray. If patient's viscus ruptures or hemodynamically unstable needs urgent surgical intervention. To be reached out to Dr. Adorno. # DVT prophylaxis: Kaycee score of 7, high-risk of VTE. Continue prophylaxis with Lovenox, close monitoring of CBC and platelets. # PUD prophylaxis: IV pantoprazole 40 mg change to b.i.d. given drop of hemoglobin in apprehension of GI bleed. # diet: strict NPO, if repeat CT tomorrow unremarkable, can advance diet to clear liquid diet. # grade 1 obesity Barriers to discharge: Active medical issues. We will consider discharge planning earliest at resolution. Patient lives with the family at home. At discharge we will follow up with discharge Clinic along with surgical team. PCP: Dr. Shah. Case discussed with Dr. Shah. Code status: Full code. Goals of care discussed for 20 minutes. Plan discussed with: Patient, Spouse, Other (Primary team, RN) My Orders My Orders Orders - MIHAI GONZALES RESIDENT Procedure Category Date Status Time Sodium Chloride 0.9% PHA 08/20/24 In Process 10:15 Meropenem 500mg Ivpb PHA 08/20/24 Logged (Merrem 500mg/Ns) 14:00 Pantoprazole PHA 08/20/24 Logged (Protonix) 10:30 Gastric Occult Blood LAB 08/20/24 Logged 10:51 Addendum Addendum Addendum I was physically present for the mccabe portions of the service provided to patient by THE RESIDENT. I have reviewed the documentation, discussed the case with resident and agree with the resident's documentation except as noted. Also the patient's clinical case was discussed with the patient's nurse. This medical document was created using an electronic medical record system with computerized dictation system. Although this document has been carefully reviewed, there might still be some phonetic and typographical errors. These areas are purely typographical due to imperfections of the software programs, and do not reflect any compromise in the patient's medical care. Late signature. Date of Service: Aug 20, 2024 Billing Provider: OPAL SHAH MD Common Visit Codes: [id number] INP/OBS CARE(HIGH) Secondary Visit Codes: [id number] CARE PLAN 30 MINUTES (20 minutes) MIHAI GONZALES RESIDENT Aug 20, 2024 10:58 OPAL SHAH MD Aug 21, 2024 05:21
[2024-08-20] MEDS: SODIUM CHLORIDE 0.9% 1,000 ML IV SCH (11:00)
[2024-08-20] MEDS: MEROPENEM 1GM IVPB 50 ML IV SCH (12:30)
[2024-08-20 13:00] VITALS: BP 121/83; PULSE 78; RESP 18; TEMP 102.5; O2SAT 97
[2024-08-20] MEDS ORDERED: MEROPENEM 500MG IVPB 50 ML IV SCH (14:00)
[2024-08-20] MEDS: VANCOMYCIN 1GM/200ML PREMIX 200 ML IV SCH (16:48)
[2024-08-20 17:00] VITALS: BP 133/64; PULSE 70; RESP 18; TEMP 99.7; O2SAT 91
[2024-08-20 20:00] VITALS: PULSE 107; RESP 18; O2SAT 94
[2024-08-20] MEDS: HYDROmorphone HCL 2 MG/ML VL/or syr IV PRN (20:44)
[2024-08-20 21:00] VITALS: BP 113/72; PULSE 107; RESP 18; TEMP 98.8; O2SAT 94
[2024-08-21 05:00] VITALS: BP 97/65; PULSE 114; RESP 18; TEMP 99.9; O2SAT 94
[2024-08-21 06:10] LABS: Basophils # (auto) 0 10 ^3/uL (0-0.2); Basophils % (auto) 0.1 % (0.0-2.0); Eosinophils # (auto) 0.1 10 ^3/uL (0-0.8); Eosinophils % (auto) 0.3 % (0.0-7.0); Hematocrit 37.1 % (41.0-53.0); Hemoglobin 12.6 g/dL (13.5-17.5); Lymphocytes # (auto) 1.3 10 ^3/uL (0.4-5.4); Lymphocytes % (auto) 5.6 % (10.0-50.0); Mean Corpuscular Hemoglobin 29.1 pg (28.0-32.0); Mean Corpuscular Hgb Conc. 33.8 g/dL (32.0-36.0); Mean Corpuscular Volume 85.9 fL (80.0-100.0); Monocytes # (auto) 1.4 10 ^3/uL (0-1.3); Monocytes % (auto) 5.6 % (0.0-12.0); Neutrophils # (auto) 21.4 10 ^3/uL (1.6-8.6); Neutrophils % (auto) 88.4 % (37.0-80.0); Platelet Count (auto) 432 10^3/uL (140-450); Red Blood Cells 4.32 10^6/uL (4.5-5.90); Red Cell Distribution Width 13.5 % (11.8-14.3); White Blood Cell 24.2 10^3/uL (4.4-10.8)
[2024-08-21 06:26] LABS: Alanine Aminotransferase 17 U/L (7-40); Albumin 3.6 g/dL (3.2-4.8); Alkaline Phosphatase 81 U/L (46-116); Anion Gap 8 (5-15); Aspartate Aminotransferase 9 U/L (13-40); BUN/Creatinine Ratio 10.8 (10.0-20.0); Bilirubin, Total 0.4 mg/dL (0.2-1.0); Blood Urea Nitrogen 8 mg/dL (9-23); Calcium 8.9 mg/dL (8.7-10.4); Carbon Dioxide 21 mmol/L (20-31); Chloride 106 mmol/L (98-107); Glucose 87 mg/dL (74-106); Potassium 4.2 mmol/L (3.5-5.1); Sodium 135 mmol/L (136-145)
[2024-08-21 06:27] LABS: Total Protein 5.9 g/dL (5.7-8.2)
[2024-08-21] MEDS: IOHEXOL 300 MG/ML 100ML BOTTLE IJ ONE (08:39)
[2024-08-21] MEDS: OMNIPAQUE 12mg/ml 500ml ORAL SOLUTION PO ONE (08:39)
[2024-08-21 09:00] VITALS: BP 91/64; PULSE 97; RESP 21; TEMP 100.5; O2SAT 95
--- NOTE | 2024-08-21 09:13 | DVHPN2 ---
Progress Note Date Seen: Aug 20, 2024 Has the PT tested + for MRSA If YES, has PT been informed?: No Medical Necessity Reason Pt with a Central, PICC or Fol: No Objective vital signs Vital Sign Date Time Temp Pulse Resp B/P (MAP) Pulse Ox O2 Delivery O2 Flow Rate FiO2 08/21/24 06:29 114 18 97/65 08/21/24 05:00 99.9 94 99.9 08/20/24 20:00 Room Air* 0 21 Total Intake and Output 08/20/24 08/20/24 08/21/24 15:00 23:00 07:00 Intake Total 370 ml 640 ml Output Total 200 ml Balance 370 ml 440 ml medications Current Medications Medications Dose Ordered Sig/Leonela Route Start Time Stop Time Status Last Admin Dose Admin Vancomycin HCl 0 ml @ 0 mls/hr UD IV 08/19/24 18:00 Acetaminophen 325 mg Q4HP PRN PO 08/19/24 22:45 Acetaminophen/ Hydrocodone Bitart 1 tab Q4HP PRN PO 08/19/24 22:45 08/21/24 08:25 1 TAB Ondansetron HCl 4 mg Q4HP PRN IV 08/19/24 22:45 Enoxaparin Sodium 40 mg DAILY SC 08/19/24 11:00 08/19/24 23:17 40 MG Nitroglycerin 0.4 mg Q5MINP PRN SL 08/19/24 22:45 Vancomycin HCl 200 ml @ 200 mls/hr Q8H IV 08/20/24 17:00 08/21/24 04:32 200 MLS/HR Sodium Chloride 1,000 ml @ 150 mls/hr Q6H40M IV 08/20/24 10:15 08/21/24 05:56 150 MLS/HR Meropenem 50 ml @ 50 mls/hr Q8HR IV 08/20/24 14:00 UNV Pantoprazole Sodium 40 mg BID IV 08/20/24 22:00 08/20/24 22:09 40 MG Ondansetron HCl 4 mg Q8HPRN PRN IV 08/20/24 11:00 Meropenem 50 ml @ 17 mls/hr Q8HR@0400,1200,2000 IV 08/20/24 12:00 08/21/24 04:00 17 MLS/HR Hydromorphone HCl 0.5 mg Q4HPRN PRN IV 08/20/24 18:00 08/21/24 05:59 0.5 MG laboratory and microbiology Laboratory Tests 08/21/24 05:25 Test 08/21/24 05:25 Range/Units Serum Glucose 87 74-106 mg/dL Microbiology Date/Time Source Procedure Growth Status 08/19/24 15:23 Blood Blood Culture - Preliminary NO GROWTH AFTER 24 HOURS OF INCUBATION. Resulted Problem List/Assessment/Plan Problem List/Assessment/Plan AFEBRILE VSS TMAX 101 ABD SOFT TENDER RLQ MORE THAN LLQ NO BM FLATUS + PAIN IS LESS CONTROLLED WITH MEDS CONTINUE CLOSE OBSERVATION KEEP NPO IV ABX CT SCAN ABD AND PELVIS AM Plan discussed with: Patient My Orders My Orders Orders - DAYANARA SADLER MD Procedure Category Date Status Time Hydromorphone PHA 08/20/24 In Process Injection (Dilaudid 18:00 DAYANARA SADLER MD Aug 21, 2024 09:13
--- NOTE | 2024-08-21 09:24 | DVHPN2 ---
Progress Note Date Seen: Aug 21, 2024 Has the PT tested + for MRSA If YES, has PT been informed?: No Medical Necessity Reason Pt with a Central, PICC or Fol: No Objective vital signs Vital Sign Date Time Temp Pulse Resp B/P (MAP) Pulse Ox O2 Delivery O2 Flow Rate FiO2 08/21/24 06:29 114 18 97/65 08/21/24 05:00 99.9 94 99.9 08/20/24 20:00 Room Air* 0 21 Total Intake and Output 08/20/24 08/20/24 08/21/24 15:00 23:00 07:00 Intake Total 370 ml 640 ml Output Total 200 ml Balance 370 ml 440 ml medications Current Medications Medications Dose Ordered Sig/Leonela Route Start Time Stop Time Status Last Admin Dose Admin Vancomycin HCl 0 ml @ 0 mls/hr UD IV 08/19/24 18:00 Acetaminophen 325 mg Q4HP PRN PO 08/19/24 22:45 Acetaminophen/ Hydrocodone Bitart 1 tab Q4HP PRN PO 08/19/24 22:45 08/21/24 08:25 1 TAB Ondansetron HCl 4 mg Q4HP PRN IV 08/19/24 22:45 Enoxaparin Sodium 40 mg DAILY SC 08/19/24 11:00 08/19/24 23:17 40 MG Nitroglycerin 0.4 mg Q5MINP PRN SL 08/19/24 22:45 Vancomycin HCl 200 ml @ 200 mls/hr Q8H IV 08/20/24 17:00 08/21/24 04:32 200 MLS/HR Sodium Chloride 1,000 ml @ 150 mls/hr Q6H40M IV 08/20/24 10:15 08/21/24 05:56 150 MLS/HR Meropenem 50 ml @ 50 mls/hr Q8HR IV 08/20/24 14:00 UNV Pantoprazole Sodium 40 mg BID IV 08/20/24 22:00 08/20/24 22:09 40 MG Ondansetron HCl 4 mg Q8HPRN PRN IV 08/20/24 11:00 Meropenem 50 ml @ 17 mls/hr Q8HR@0400,1200,2000 IV 08/20/24 12:00 08/21/24 04:00 17 MLS/HR Hydromorphone HCl 0.5 mg Q4HPRN PRN IV 08/20/24 18:00 08/21/24 05:59 0.5 MG laboratory and microbiology Laboratory Tests 08/21/24 05:25 Test 08/21/24 05:25 Range/Units Serum Glucose 87 74-106 mg/dL Microbiology Date/Time Source Procedure Growth Status 08/19/24 15:23 Blood Blood Culture - Preliminary NO GROWTH AFTER 24 HOURS OF INCUBATION. Resulted Problem List/Assessment/Plan Problem List/Assessment/Plan AFEBRILE VSS TMAX 99 ABD SOFT TENDER RLQ AND LLQ NO BM FLATUS + PAIN IS LESS AND CONTROLLED WITH MEDS CONTINUE CLOSE OBSERVATION KEEP NPO IV ABX CT SCAN ABD AND PELVIS WITH PO CONTRAST TO EVALUATE FOR POSSIBLE IR DRAINAGE Plan discussed with: Patient My Orders My Orders Orders - DAYANARA SADLER MD Procedure Category Date Status Time Hydromorphone PHA 08/20/24 In Process Injection (Dilaudid 18:00 DAYANARA SADLER MD Aug 21, 2024 09:24
--- NOTE | 2024-08-21 11:21 | DVHPN2 ---
Subjective Continue to complain of abdominal pain along with chills and fever Reviewed: Care Plan, H&P, Labs, Medications, Previous Orders, Radiology, Other (Consultation) Changes from previous H/P or p: No Changes Objective Vitals Vital Signs Date Time Temp Pulse Resp B/P (MAP) Pulse Ox O2 Delivery O2 Flow Rate FiO2 08/21/24 10:43 108 18 108/76 08/21/24 09:00 100.5 95 100.5 08/20/24 20:00 Room Air* 0 21 Intake/Output Intake and Output 08/21/24 07:00 Intake Total 1010 ml Output Total 200 ml Balance 810 ml Intake Oral 360 ml IV Total 650 ml Output Urine Total 200 ml # Voids 2 General Appearance: Alert, Oriented X3, Cooperative, moderate distress HEENT: Atraumatic Lungs: Clear to auscultation, Normal air movement Cardiovascular: Other (Tachycardia) Abdomen: Soft, Other (Sluggish bowel sounds with diffuse tenderness but no rebound tenderness and no rigidity) Neuro: Normal speech, Cranial nerves 3-12 NL Psych/Mental Status: Mental status NL, Mood NL Medications Current Medications Medications Dose Ordered Sig/Leonela Route Start Time Stop Time Status Last Admin Dose Admin Vancomycin HCl 0 ml @ 0 mls/hr UD IV 08/19/24 18:00 Acetaminophen 325 mg Q4HP PRN PO 08/19/24 22:45 Acetaminophen/ Hydrocodone Bitart 1 tab Q4HP PRN PO 08/19/24 22:45 08/21/24 08:25 1 TAB Ondansetron HCl 4 mg Q4HP PRN IV 08/19/24 22:45 Enoxaparin Sodium 40 mg DAILY SC 08/19/24 11:00 08/19/24 23:17 40 MG Nitroglycerin 0.4 mg Q5MINP PRN SL 08/19/24 22:45 Vancomycin HCl 200 ml @ 200 mls/hr Q8H IV 08/20/24 17:00 08/21/24 04:32 200 MLS/HR Sodium Chloride 1,000 ml @ 150 mls/hr Q6H40M IV 08/20/24 10:15 08/21/24 05:56 150 MLS/HR Meropenem 50 ml @ 50 mls/hr Q8HR IV 08/20/24 14:00 UNV Pantoprazole Sodium 40 mg BID IV 08/20/24 22:00 08/21/24 10:24 40 MG Ondansetron HCl 4 mg Q8HPRN PRN IV 08/20/24 11:00 Meropenem 50 ml @ 17 mls/hr Q8HR@0400,1200,2000 IV 08/20/24 12:00 08/21/24 04:00 17 MLS/HR Hydromorphone HCl 0.5 mg Q4HPRN PRN IV 08/20/24 18:00 08/21/24 10:43 0.5 MG Laboratory Results Laboratory Tests 08/21/24 05:25 Chemistry Test 08/21/24 05:25 Albumin 3.6 g/dL (3.2-4.8) Calcium Level 8.9 mg/dL (8.7-10.4) Total Protein 5.9 g/dL (5.7-8.2) LFT Test 08/21/24 05:25 Alanine Aminotransferase (ALT) 17 U/L (7-40) Alkaline Phosphatase 81 U/L (46-116) Aspartate Amino Transferase (AST) 9 U/L (13-40) L Total Bilirubin 0.4 mg/dL (0.2-1.0) Urinalysis Test 08/20/24 01:03 Urine Color Yellow (Yellow) Urine Clarity Clear (Clear) Urine pH 6.5 (5.0-9.0) Urine Specific Waldron 1.049 (1.001-1.035) Urine Protein Trace (Negative) H Urine Ketones Trace (Negative) Urine Blood Trace /uL (Negative) H Urine Nitrite Negative (Negative) Urine Bilirubin Negative (Negative) Urine Urobilinogen Normal mg/dL (Negative) Urine Leukocyte Esterase Negative /uL (Negative) Urine RBC 5 /hpf (0 - 3) Urine WBC <1 /hpf (0 - 3) Urine Squamous Epithelial Cells Few /hpf (<5) Urine Bacteria None seen /hpf (None Seen) Urine Mucus Few (None Seen) Urine Glucose Normal mg/dL (Normal) Microbiology Microbiology Date/Time Source Procedure Growth Status 08/19/24 15:23 Blood Blood Culture - Preliminary NO GROWTH AFTER 24 HOURS OF INCUBATION. Resulted Labs and/or images reviewed: Labs reviewed by me, Image(s) reviewed by me Assessment/Plan Assessment/Plan A 44-year-old male patient; who underwent laparoscopic appendectomy earlier this month; who presented to emergency department with chills and fever and abdominal pain. #Sepsis due to post surgical abdominal/pelvic abscesses #Post surgical abdominal/pelvis abscesses #Leukocytosis due to sepsis #Tachycardia due to sepsis #Fever due to sepsis -Stable blood pressure for now -Continue IV board spectrum antibiotics -Initial blood cultures had no growth; repeat blood culture ordered -Dr. Adorno; the surgeon who performed the laparoscopic appendectomy; is following -Reviewed repeat abdomen/pelvis CT -IR consulted for possible drainage; NPO after midnight -Continue pain management as needed -Continue monitoring This medical document was created using an electronic medical record system with computerized dictation system. Although this document has been carefully reviewed, there might still be some phonetic and typographical errors. These areas are purely typographical due to imperfections of the software programs, and do not reflect any compromise in the patient's medical care. Plan discussed with: Patient, Spouse, Other (Nurse) Date of Service: Aug 21, 2024 Billing Provider: OPAL SHAH MD Common Visit Codes: [id number] INP/OBS CARE(HIGH) OPAL SHAH MD Aug 21, 2024 11:21
--- NOTE | 2024-08-21 12:11 | DVH ---
CLINICAL INFORMATION: 44 years old, Male; Intra-abdominal abscess, for surgical complication, ruptu re. TECHNIQUE: Axial CT images of the abdomen and pelvis were obtained after the uneventful administrati on of 100 mL Omnipaque 300 IV contrast. GI contrast was also administered prior to the examination. C oronal and sagittal reformatted images were obtained, reviewed, and stored. All CT scans at this [facility] facility are performed using dose modulation techniques as appropriate to a performed exam includ ing the following: Automated exposure control was utilized; adjustment of the MA and/or KV according to patient size; and use of iterative reconstruction technique. CTDIvol = 15.76, mGy DLP = 1199.14 mGy-cm COMPARISON: CT CT AB PEL WITH IV CON ONLY on DOS: 08/19/24 FINDINGS: Lung bases: Dependent atelectasis and consolidation in the lung bases. Liver: Unremarkable. No abnormal density or focal lesion. Biliary: Mildly distended gallbladder. No calcified gallstones visualized. Spleen: Unremarkable. Pancreas: Unremarkable. No inflammatory changes, ductal dilatation, or mass identified. Adrenal glands: Unremarkable. No mass. Kidneys: Hydronephrosis. Mild bilateral perinephric fluid and stranding. Exophytic cyst at the model making supervisor olateral aspect of the right kidney measures up to 1.9 cm in greatest dimension. Aorta/Vascular: No aneurysm or significant calcification. Retroperitoneum: No mass or lymphadenopathy. Bowel/mesentery: Postsurgical changes are seen in the right lower quadrant with surgical clips visual ized adjacent to the cecum and more medially in the right lower quadrant. There is a fluid collection measuring up to 2.6 x 5.6 x 3.4 cm with mild adjacent enhancement. Previously this collection measur ed 4.9 x 2.5 x 3.7 cm. There is a fluid-filled tract extending from the area of postsurgical changes in the right lower quadrant to the central aspect of the pelvis (along a portion of the course of the previously seen surgical drain), extending posterior to the bladder, where there is a collection debra suring 3.0 x 5.2 x 3.3 cm (series 2 image 84 corresponding to series 602 image 67). Previously, this collection measured 2.2 x 5.3 x 4.1 cm. There is mild adjacent inflammatory stranding. The collection abuts the caudal aspect of the rectum. There is wall thickening of the rectum and adjacent portions of the sigmoid colon, possibly secondary inflammation of the rectosigmoid colon from the inflammatory changes. There is also wall thickening of loops of small bowel in the right lower quadrant. Pelvic organs: Grossly unremarkable. Bladder: Mild circumferential thickening of the bladder wall. Mild adjacent stranding. Abdominal wall: No mass or hernia. Bones: No acute fracture or focal intraosseous lesion. IMPRESSION: 1. Postsurgical changes in the right lower quadrant as described above. Fluid collection in the right lower quadrant and fluid-filled tract extending to the pelvis posterior to the bladder, suspected ab scesses with surrounding inflammatory changes. 2. Wall thickening and inflammatory changes involving the rectosigmoid colon and small bowel in the p jody and right lower quadrant, likely secondary inflammation of the bowel from the suspected infecte d fluid collections. 3. Mild circumferential thickening of the bladder wall with mild adjacent stranding. Correlate clini alice for cystitis. 4. Gallbladder is mildly distended. No gallstones visualized. 5. Atelectasis and consolidations in the lung bases. 6. Additional findings as detailed above.
[2024-08-21 13:00] VITALS: BP 70/70; PULSE 102; RESP 20; TEMP 100.1; O2SAT 94
[2024-08-21 17:00] VITALS: BP 106/73; PULSE 99; RESP 22; TEMP 98.1; O2SAT 93
[2024-08-21] MEDS: VANCOMYCIN 1GM/200ML PREMIX 200 ML IV SCH (17:08)
[2024-08-21 20:00] VITALS: PULSE 107; RESP 13; O2SAT 94
[2024-08-21] MEDS: KETOROLAC TROMETH 30 MG/ML 1ML VIAL IV PRN (20:33)
[2024-08-21 21:00] VITALS: BP 108/70; PULSE 107; RESP 18; TEMP 98.1; O2SAT 94
[2024-08-22] VITALS (8 sets, daily range): BP systolic 99–128; BP diastolic 62–73; PULSE 80–123; RESP 14–21; TEMP 97.7–98.4; O2SAT 7–97
[2024-08-22 06:32] LABS: Basophils # (auto) 0 10 ^3/uL (0-0.2); Basophils % (auto) 0.2 % (0.0-2.0); Eosinophils # (auto) 0.2 10 ^3/uL (0-0.8); Eosinophils % (auto) 1.1 % (0.0-7.0); Hematocrit 36.9 % (41.0-53.0); Hemoglobin 12.6 g/dL (13.5-17.5); Lymphocytes # (auto) 1.6 10 ^3/uL (0.4-5.4); Lymphocytes % (auto) 7.6 % (10.0-50.0); Mean Corpuscular Hemoglobin 29.5 pg (28.0-32.0); Mean Corpuscular Hgb Conc. 34.3 g/dL (32.0-36.0); Mean Corpuscular Volume 86.2 fL (80.0-100.0); Monocytes # (auto) 1.5 10 ^3/uL (0-1.3); Monocytes % (auto) 7.2 % (0.0-12.0); Neutrophils # (auto) 17.8 10 ^3/uL (1.6-8.6); Neutrophils % (auto) 83.9 % (37.0-80.0); Nucleated Red Blood Cells % 0.2 %; Platelet Count (auto) 443 10^3/uL (140-450); Red Blood Cells 4.28 10^6/uL (4.5-5.90); Red Cell Distribution Width 13.6 % (11.8-14.3); White Blood Cell 21.2 10^3/uL (4.4-10.8)
[2024-08-22] MEDS: BUPIVACAINE 0.25% INJ 50ML VIAL ONE (07:47)
[2024-08-22] MEDS ORDERED: SODIUM CHLORIDE LOCK 50 ML ONE (07:54)
[2024-08-22] MEDS ORDERED: LIDOCAINE HCL 2% TOP JELLY 5ML TOP ONE (07:54)
[2024-08-22] MEDS ORDERED: fentaNYL CITRATE 5 ML ONE (07:54)
[2024-08-22] MEDS ORDERED: MIDAZOLAM HCL 2MG/2ML 2ml VIAL (1mg/ml) ONE (07:54)
[2024-08-22] MEDS ORDERED: PROPOFOL 10 MG/ML 20 ML IV ONE (07:54)
[2024-08-22] MEDS ORDERED: LIDOCAINE 1% INJ PF 5ML AMP ONE (07:54)
[2024-08-22] MEDS ORDERED: DexAMETHasone SOD PHOS 10MG/1ML VIAL INJ ONE (07:54)
[2024-08-22] MEDS ORDERED: MEPERIDINE HCL (25 MG/ML) 1ML VIAL ONE (07:54)
[2024-08-22] MEDS ORDERED: ONDANSETRON HCL 4 MG/2 ML VIAL ONE (07:54)
[2024-08-22] MEDS ORDERED: fentaNYL CITRATE 100 MCG/2 ML VL ONE (07:54)
[2024-08-22] MEDS ORDERED: ROCURONIUM 10MG/ML 10ML VIAL IV ONE (07:54)
[2024-08-22] MEDS ORDERED: KETAMINE 50mg/ML 1ml syringe ONE (07:54)
[2024-08-22] MEDS: METOCLOPRAMIDE HCL 5MG/ml INJ 2ml VIAL IV ONE (08:15)
[2024-08-22] MEDS ORDERED: HYDROmorphone HCL 2 MG/ML VL/or syr IV PRN (08:15)
[2024-08-22] MEDS ORDERED: MORPHINE SULFATE INJ 2 MG/ml SYRG IV PRN (08:15)
[2024-08-22] MEDS: KETOROLAC TROMETH 30 MG/ML 1ML VIAL IV ONE (08:15)
--- NOTE | 2024-08-22 08:29 | DVHPN2 ---
Progress Note Date Seen: Aug 22, 2024 Has the PT tested + for MRSA If YES, has PT been informed?: No Medical Necessity Reason Pt with a Central, PICC or Fol: No Objective vital signs Vital Sign Date Time Temp Pulse Resp B/P (MAP) Pulse Ox O2 Delivery O2 Flow Rate FiO2 08/22/24 05:48 106 18 111/68 08/22/24 05:00 98.0 93 98.0 08/21/24 20:00 Nasal Cannula* 2 28 Total Intake and Output 08/21/24 08/21/24 08/22/24 15:00 23:00 07:00 Intake Total 550 ml 250 ml Output Total 725 ml 870 ml Balance -175 ml -620 ml medications Current Medications Medications Dose Ordered Sig/Leonela Route Start Time Stop Time Status Last Admin Dose Admin Vancomycin HCl 0 ml @ 0 mls/hr UD IV 08/19/24 18:00 Acetaminophen 325 mg Q4HP PRN PO 08/19/24 22:45 Acetaminophen/ Hydrocodone Bitart 1 tab Q4HP PRN PO 08/19/24 22:45 08/21/24 23:45 1 TAB Ondansetron HCl 4 mg Q4HP PRN IV 08/19/24 22:45 Enoxaparin Sodium 40 mg DAILY SC 08/19/24 11:00 08/19/24 23:17 40 MG Nitroglycerin 0.4 mg Q5MINP PRN SL 08/19/24 22:45 Sodium Chloride 1,000 ml @ 150 mls/hr Q6H40M IV 08/20/24 10:15 08/22/24 02:06 150 MLS/HR Meropenem 50 ml @ 50 mls/hr Q8HR IV 08/20/24 14:00 UNV Pantoprazole Sodium 40 mg BID IV 08/20/24 22:00 08/21/24 22:03 40 MG Ondansetron HCl 4 mg Q8HPRN PRN IV 08/20/24 11:00 Meropenem 50 ml @ 17 mls/hr Q8HR@0400,1200,2000 IV 08/20/24 12:00 08/22/24 03:49 17 MLS/HR Hydromorphone HCl 0.5 mg Q4HPRN PRN IV 08/20/24 18:00 08/22/24 05:18 0.5 MG Vancomycin HCl 200 ml @ 200 mls/hr Q8H IV 08/21/24 17:00 08/22/24 01:08 200 MLS/HR Ketorolac Tromethamine 30 mg Q6HPRN PRN IV 08/21/24 17:45 08/26/24 17:44 08/22/24 02:15 30 MG Hydromorphone HCl 0.5 mg Q10M PRN IV 08/22/24 08:15 08/22/24 08:56 UNV Hydromorphone HCl 0.25 mg Q10M PRN IV 08/22/24 08:15 08/22/24 08:46 Morphine Sulfate 1 mg Q30M PRN IV 08/22/24 08:15 08/22/24 10:16 UNV laboratory and microbiology Laboratory Tests 08/22/24 05:44 08/21/24 05:25 Test 08/21/24 05:25 Range/Units Serum Glucose 87 74-106 mg/dL Microbiology Date/Time Source Procedure Growth Status 08/19/24 15:23 Blood Blood Culture - Preliminary NO GROWTH AFTER 48 HOURS OF INCUBATION. Resulted Problem List/Assessment/Plan Problem List/Assessment/Plan AFEBRILE VSS TMAX 100 WBC 21 ELEVATED BUT TRENDING DOWN ABD SOFT TENDER RLQ AND LLQ NO BM FLATUS + PAIN IS LESS AND CONTROLLED WITH MEDS IR DRAINAGE NOT POSSIBLE PER RADIOLOGY PROCEED WITH LAP/OPEN DRAINAGE INTRAABD ABSCESS, POSSIBLE BOWEL RESECTION POSSIBLE COLOSTOMY Plan discussed with: Patient My Orders My Orders Orders - DAYANARA SADLER MD Procedure Category Date Status Time * Radiologist Consult CONS 08/21/24 Transmitted 15:08 Ketorolac Injection PHA 08/21/24 In Process (Toradol Injection) 17:45 Obtain Consent For: ORDERS 08/22/24 Verified 08:26 Obtain Consent For MAGUI 08/22/24 Verified Anesthesia 08:26 DAYANARA SADLER MD Aug 22, 2024 08:29
--- NOTE | 2024-08-22 09:08 | DVHPNRES ---
Progress Note Date Seen: Aug 22, 2024 Resident Creating Document: MIHAI GONZALES RESIDENT Has the PT tested + for MRSA If YES, has PT been informed?: No Medical Necessity Reason Pt with a Central, PICC or Fol: No Subjective Review of Systems Saw the patient after surgical procedure. Back to room. Hemodynamically stable post surgically. Mild abdominal pain in the surgical site. Patient reports: No new complaints, Feels better Review of Systems: HEENT:Normal, CVS:Normal, RESPIRATORY:Normal, GI:Abnormal (Abdominal pain, status post revision surgery this morning), :Normal, MSK:Normal, NEURO:Normal Objective vital signs Vital Sign Date Time Temp Pulse Resp B/P (MAP) Pulse Ox O2 Delivery O2 Flow Rate FiO2 08/22/24 08:00 80 21 7 Room Air* 0 21 08/22/24 05:48 111/68 08/22/24 05:00 98.0 98.0 Total Intake and Output 08/21/24 08/21/24 08/22/24 15:00 23:00 07:00 Intake Total 550 ml 250 ml Output Total 725 ml 870 ml Balance -175 ml -620 ml medications Current Medications Medications Dose Ordered Sig/Leonela Route Start Time Stop Time Status Last Admin Dose Admin Vancomycin HCl 0 ml @ 0 mls/hr UD IV 08/19/24 18:00 Acetaminophen 325 mg Q4HP PRN PO 08/19/24 22:45 Acetaminophen/ Hydrocodone Bitart 1 tab Q4HP PRN PO 08/19/24 22:45 08/21/24 23:45 1 TAB Ondansetron HCl 4 mg Q4HP PRN IV 08/19/24 22:45 Enoxaparin Sodium 40 mg DAILY SC 08/19/24 11:00 08/19/24 23:17 40 MG Nitroglycerin 0.4 mg Q5MINP PRN SL 08/19/24 22:45 Sodium Chloride 1,000 ml @ 150 mls/hr Q6H40M IV 08/20/24 10:15 08/22/24 02:06 150 MLS/HR Meropenem 50 ml @ 50 mls/hr Q8HR IV 08/20/24 14:00 UNV Pantoprazole Sodium 40 mg BID IV 08/20/24 22:00 08/21/24 22:03 40 MG Ondansetron HCl 4 mg Q8HPRN PRN IV 08/20/24 11:00 Meropenem 50 ml @ 17 mls/hr Q8HR@0400,1200,2000 IV 08/20/24 12:00 08/22/24 03:49 17 MLS/HR Hydromorphone HCl 0.5 mg Q4HPRN PRN IV 08/20/24 18:00 08/22/24 05:18 0.5 MG Vancomycin HCl 200 ml @ 200 mls/hr Q8H IV 08/21/24 17:00 08/22/24 01:08 200 MLS/HR Ketorolac Tromethamine 30 mg Q6HPRN PRN IV 08/21/24 17:45 08/26/24 17:44 08/22/24 02:15 30 MG Hydromorphone HCl 0.5 mg Q10M PRN IV 08/22/24 08:15 08/22/24 08:56 UNV Morphine Sulfate 1 mg Q30M PRN IV 08/22/24 08:15 08/22/24 10:16 UNV Examination: GENERAL:Normal, HEENT:Normal, NECK:Normal, LUNGS:Abnormal (Basal rales likely due to atelectasis), CVS:Normal, ABDOMEN:Abnormal (Previous surgical scar, new surgical scar, dressing intact.), MSK:Normal, SKIN:Normal, NEURO:Normal laboratory and microbiology Laboratory Tests 08/22/24 05:44 08/21/24 05:25 Test 08/21/24 05:25 Range/Units Serum Glucose 87 74-106 mg/dL Microbiology Date/Time Source Procedure Growth Status 08/19/24 15:23 Blood Blood Culture - Preliminary NO GROWTH AFTER 48 HOURS OF INCUBATION. Resulted Labs and/or images reviewed: Labs reviewed by me, Image(s) reviewed by me Problem List/Assessment/Plan Problem List/Assessment/Plan Hospital Course: Mr. Donald 44-year-old male, Past medical history significant for recent ruptured appendix status post appendectomy, 25 days post surgically, presented with severe right lower quadrant dull abdominal pain, sudden onset and at peak rated 10 out of 10 associated with intermittent sharp episodes, chills, malaise and nausea. He reports painful bowel movements and groin pain after MARYSE drain removal post surgically that gradually developed to the presenting symptoms. Patient denies vomiting, bleeding, chest pain, shortness of breath, syncope or other GI symptoms. Recent ultrasound in [facility] ruled out renal stone. Status post IV antibiotics repeat CT scan shows no improvement of right lower quadrant abscess. Patient is hemodynamically stable, not amenable to drain by IR. Status post repeat surgical revision to remove abscess. # Post surgical intra-abdominal abscess: Covering IV meropenem (Gram -ves including Pseudomonas coverage) and vancomycin ( for staph aureus coverage.) Follow blood culture. pain management with NSAIDs, sq.6 IV Toradol 30 mg, given allergy to morphine. As needed Zofran. Postdrainage culture to follow closely as well. Appreciate surgery input, status post surgical drainage. MARYSE drain in place, follow output. follow CBC with diff. # Sepsis due to above: Leukocytosis improving, DC fluid. # History of Status post ruptured appendix needing surgical intervention: status post laparoscopic appendicectomy by Dr. Adorno, postsurgical day 28 # Known allergic to fluoroquinolones, penicillins and morphine. Although patient has less chance of cross reaction with cephalosporins, given active sepsis we will consider so far out of alternate antibiotics And pain medications. # Bibasilar atelectasis: likely due to acute abdominal pain: at room air, needing incentive spirometry we will start. The # normocytic anemia: Presented with 15.3, now hemoglobin 12.9, likely dilution, close monitoring, repeat CBC tomorrow. Healthy gentleman with a transfusion threshold of 7 or less of hemoglobin. FOBT to rule out occult GI bleeding. # Intra-abdominal viscus rupture unlikely # DVT prophylaxis: Kaycee score of 7, high-risk of VTE. Continue prophylaxis with Lovenox, close monitoring of CBC and platelets. # PUD prophylaxis: IV pantoprazole 40 mg change to b.i.d. given drop of hemoglobin in apprehension of GI bleed, we will change to oral tomorrow. # diet: NPO overnight, as per General surgery we will start with clear liquid diet # grade 1 obesity Barriers to discharge: Status post revision surgery day 1. Review with surgery tomorrow. Hemodynamically stable, we will start sw/advanced discharge planning tomorrow. PCP: Dr. Joe. Case discussed with Dr. Vegas. Code status: Full code. Complex patient care discussion needed total 43 minutes. Plan discussed with: Patient Date of Service: Aug 22, 2024 Billing Provider: DIANNE VEGAS MD Common Visit Codes: [id number] INP/OBS CARE(HIGH) MIHAI GONZALES RESIDENT Aug 22, 2024 09:08 DIANNE VEGAS MD Aug 22, 2024 16:52
[2024-08-22] MEDS: BUPIVACAINE 0.25% INJ 50ML VIAL IJ ONE (09:51)
[2024-08-22] MEDS ORDERED: SUGAMMADEX 200mg/2ml Vial (100MG/ML) IV ONE (09:51)
--- NOTE | 2024-08-22 10:03 | DVHOP2 ---
Operative Report [id number] INTRAABD ABSCESS/SEROMA S/P LAP APPENDECTOMY FOR RUPTURED APPENDICITIS LAP DRAINAGE OF INTRA ABD ABSCESS AND PELVIC SEROMA LAP KEELY EBL 25 CC ONE DRAIN NO COMPLICATIONS DAYANARA SADLER MD Aug 22, 2024 10:03
[2024-08-22] MEDS: HYDROmorphone HCL 2 MG/ML VL/or syr IV PRN (10:29)
[2024-08-22] MEDS ORDERED: GLYCOPYRROLATE 0.2 MG/ML 1ML VIAL IV ONE (12:08)
--- NOTE | 2024-08-22 12:08 | DVHOP ---
DATE OF SURGERY: 08/22/2024 PREOPERATIVE DIAGNOSIS: Intra-abdominal abscess collection, status post laparoscopic appendectomy with drainage of intra-abdominal abscess. POSTOPERATIVE DIAGNOSIS: Intra-abdominal abscess collection, status post laparoscopic appendectomy with drainage of intra-abdominal abscess. PROCEDURE: Laparoscopic lysis of adhesions and drainage of intra-abdominal abscess. SURGEON: Montez Adorno MD CLEAN UP HELPER BANQUET: None. ANESTHESIA: General. ESTIMATED BLOOD LOSS: Close to 25 mL. DRAINS: One drain was used. COMPLICATIONS: No complication encountered. DESCRIPTION OF PROCEDURE: The patient was prepped and draped in the usual sterile fashion in the supine position and a supraumbilical incision was applied, was taken down to the fascia. The Veress needle was introduced and CO2 insufflation was started to a pressure of 15 mmHg. The needle was withdrawn, replaced by the 5 mm trocar and a telescope was introduced and adhesions were noted in the pelvis as well as the right lower quadrant and the previous surgery was a complicated surgery because of his perforation and that resolved very well following his surgery. He was discharged. He had a drainage tube placed and the drainage tube was removed in the office. Following that, he developed severe abdominal pain, got admitted and he was diagnosed with a residual intra-abdominal pelvic abscess, right lower quadrant abscess and he was then considered for IR drainage. A repeat CAT scan indicated it was not possible to do IR drainage by radiology and then a decision was made to do surgically laparoscopic, possible open drainage of intra-abdominal abscess was considered. Then following that, two 5 mm ports were applied after some adhesions were taken down, one above the symphysis in the previous incision site of the drain site and the third one between the upper two. The patient was placed in the Trendelenburg and right upper lateral position. Meticulous dissection was carried out. The pelvis was examined. Seroma fluid was drained out and the colonic tissue was also closely adherent to the left lateral abdominal wall, but there was inflammation of the mesenteric tissue in that location, but an abscess was found in the right lower abdomen whereas previous surgery had been undertaken for his ruptured appendicitis and that was suctioned out. Cultures were sent and a size 19 irrigation was performed. Irrigation fluid was removed and the size 19 Cruz drainage tube was placed to drain the right lower quadrant or the abscess cavity going into the pelvis as well and then bringing it out from the lowermost 5 mm port. After that, one port had been withdrawn, securing the drain with a silk suture. After that, the CO2 was let out. No complication was encountered. The trocars were withdrawn and the wounds were brought together using 3-0 Monocryl suture in a subcuticular fashion. Surgical glue was applied. The patient tolerated the procedure well and was taken back to the recovery room in stable condition. MD ROHIT Magaña/YULI/MICAH/ARABELLA TID: [id number] RECEIPT: [id number] cc:
[2024-08-22] MEDS: LACTATED RINGER'S 1,000 ML IV SCH (18:28)
[2024-08-23 05:00] VITALS: BP 124/85; PULSE 92; RESP 19; TEMP 98.2; O2SAT 97
[2024-08-23 05:41] LABS: Basophils # (auto) 0 10 ^3/uL (0-0.2); Eosinophils # (auto) 0 10 ^3/uL (0-0.8); Hemoglobin 12.4 g/dL (13.5-17.5); Lymphocytes # (auto) 1.3 10 ^3/uL (0.4-5.4); Neutrophils # (auto) 16.3 10 ^3/uL (1.6-8.6); Red Cell Distribution Width 13.5 % (11.8-14.3)
[2024-08-23 05:44] LABS: Hematocrit 36.4 % (41.0-53.0); Mean Corpuscular Hgb Conc. 34.2 g/dL (32.0-36.0); Monocytes # (auto) 0.8 10 ^3/uL (0-1.3); Monocytes % (auto) 4.1 % (0.0-12.0); Neutrophils % (auto) 88.9 % (37.0-80.0); Platelet Count (auto) 527 10^3/uL (140-450); Red Blood Cells 4.28 10^6/uL (4.5-5.90); White Blood Cell 18.4 10^3/uL (4.4-10.8)
[2024-08-23 06:15] LABS: Alanine Aminotransferase 18 U/L (7-40); Albumin 3.5 g/dL (3.2-4.8); Alkaline Phosphatase 82 U/L (46-116); Anion Gap 11 (5-15); Aspartate Aminotransferase 16 U/L (13-40); Bilirubin, Total 0.3 mg/dL (0.2-1.0); Blood Urea Nitrogen 12 mg/dL (9-23); Calcium 9.2 mg/dL (8.7-10.4); Carbon Dioxide 22 mmol/L (20-31); Chloride 105 mmol/L (98-107); Glucose 121 mg/dL (74-106); Potassium 4.1 mmol/L (3.5-5.1); Sodium 138 mmol/L (136-145); Total Protein 6.1 g/dL (5.7-8.2)
--- NOTE | 2024-08-23 07:30 | DVHPNRES ---
Progress Note Date Seen: Aug 23, 2024 Resident Creating Document: MIHAI GONZALES RESIDENT Has the PT tested + for MRSA If YES, has PT been informed?: No Medical Necessity Reason Pt with a Central, PICC or Fol: No Subjective Patient reports: No new complaints Changes from previous H/P or p: No Changes Review of Systems: HEENT:Normal, CVS:Normal, RESPIRATORY:Normal, GI:Abnormal (abdominal pain improved. still npo. sipping water. ), :Normal, MSK:Normal, NEURO:Normal Objective vital signs Vital Sign Date Time Temp Pulse Resp B/P (MAP) Pulse Ox O2 Delivery O2 Flow Rate FiO2 08/23/24 05:00 98.2 92 19 124/85 (98) 97 98.2 08/22/24 20:00 Room Air* 0 21 Total Intake and Output 08/22/24 08/22/24 08/23/24 15:00 23:00 07:00 Intake Total 50 ml 440 ml 450 ml Output Total 10 ml 170 ml 970 ml Balance 40 ml 270 ml -520 ml medications Current Medications Medications Dose Ordered Sig/Leonela Route Start Time Stop Time Status Last Admin Dose Admin Vancomycin HCl 0 ml @ 0 mls/hr UD IV 08/19/24 18:00 Acetaminophen 325 mg Q4HP PRN PO 08/19/24 22:45 Ondansetron HCl 4 mg Q4HP PRN IV 08/19/24 22:45 Enoxaparin Sodium 40 mg DAILY SC 08/19/24 11:00 08/19/24 23:17 40 MG Nitroglycerin 0.4 mg Q5MINP PRN SL 08/19/24 22:45 Meropenem 50 ml @ 50 mls/hr Q8HR IV 08/20/24 14:00 UNV Pantoprazole Sodium 40 mg BID IV 08/20/24 22:00 08/22/24 22:01 40 MG Ondansetron HCl 4 mg Q8HPRN PRN IV 08/20/24 11:00 Meropenem 50 ml @ 17 mls/hr Q8HR@0400,1200,2000 IV 08/20/24 12:00 08/23/24 05:38 17 MLS/HR Vancomycin HCl 200 ml @ 200 mls/hr Q8H IV 08/21/24 17:00 10/29/24 01:01 200 MLS/HR Ketorolac Tromethamine 30 mg Q6HPRN PRN IV 08/21/24 17:45 08/26/24 17:44 08/23/24 05:38 30 MG Lactated Ringer's 1,000 ml @ 50 mls/hr Q20H IV 08/22/24 16:00 08/22/24 18:28 50 MLS/HR Examination: GENERAL:Normal, HEENT:Normal, NECK:Normal, LUNGS:Normal, CVS:Normal, ABDOMEN:Abnormal (MARYSE drain serosanguinous drainage. surgical scar healthy and intact. ), MSK:Normal, SKIN:Normal, NEURO:Normal, :Normal laboratory and microbiology Laboratory Tests 08/23/24 05:19 Test 08/23/24 05:19 Range/Units Serum Glucose 121 H 74-106 mg/dL Microbiology Date/Time Source Procedure Growth Status 08/21/24 11:35 Blood Blood Culture - Preliminary NO GROWTH AFTER 24 HOURS OF INCUBATION. Resulted Labs and/or images reviewed: Labs reviewed by me, Image(s) reviewed by me Problem List/Assessment/Plan Problem List/Assessment/Plan Hospital Course: Mr. Donald 44-year-old male, Past medical history significant for recent ruptured appendix status post appendectomy, 25 days post surgically, presented with severe right lower quadrant dull abdominal pain, sudden onset and at peak rated 10 out of 10 associated with intermittent sharp episodes, chills, malaise and nausea. He reports painful bowel movements and groin pain after MARYSE drain removal post surgically that gradually developed to the presenting symptoms. Patient denies vomiting, bleeding, chest pain, shortness of breath, syncope or other GI symptoms. Recent ultrasound in [facility] ruled out renal stone. Status post IV antibiotics repeat CT scan shows no improvement of right lower quadrant abscess. Patient is hemodynamically stable, not amenable to drain by IR. Status post repeat surgical revision to remove abscess, hemodynamically stable, BM+ passing flatus. # Post surgical intra-abdominal abscess: Covering IV meropenem (Gram -ves including Pseudomonas coverage) and vancomycin ( for staph aureus coverage.) Follow blood culture. pain management with NSAIDs, sq.6 IV Toradol 30 mg, given allergy to morphine. As needed Zofran. Postdrainage culture to follow closely as well. Appreciate surgery input, status post surgical drainage. MARYSE drain in place, follow output. follow CBC with diff. # Sepsis due to above: Leukocytosis improving, DC fluid, oral fluid only. # History of Status post ruptured appendix needing surgical intervention # Known allergic to fluoroquinolones, penicillins and morphine # Bibasilar atelectasis: incentive spirometry continue # normocytic anemia: Presented with 15.3, now hemoglobin 12.9, likely dilution, close monitoring, repeat CBC tomorrow. Healthy gentleman with a transfusion threshold of 7 or less of hemoglobin. FOBT to rule out occult GI bleeding. # Intra-abdominal viscus rupture , ruled out. # DVT prophylaxis: Kaycee score of 7, high-risk of VTE. Continue prophylaxis with Lovenox, close monitoring of CBC and platelets. # PUD prophylaxis: continue oral ppi. # diet: start with clear liquid diet # grade 1 obesity Barriers to discharge: Status post revision surgery day 2. Review with surgery tomorrow. Hemodynamically stable, we will start sw/advanced discharge planning tomorrow. PCP: Dr. Joe. Case discussed with Dr. Vegas. Code status: Full code. Complex patient care discussion needed total 41 minutes. Plan discussed with: Patient Plan discussed with: Patient, Other My Orders My Orders Orders - MIHAI GONZALES Procedure Category Date Status Time Incentive Spirometry ORDERS 08/22/24 Transmitted Q 1hr 14:39 Lactated Ringer's PHA 08/22/24 In Process 16:00 Dietary Evaluation Review Comments: Advance to diet as tolerated after the surgery. Monitor PO intake to meet 75% of his needs, Expected Outcomes/Goals: Healed incisions. Gradual weight loss. Date of Service: Aug 23, 2024 Billing Provider: DIANNE VEGAS MD Common Visit Codes: [id number] INP/OBS CARE(MOD) MIHAI GONZALES Aug 23, 2024 07:30 DIANNE VEGAS MD Aug 23, 2024 15:38
[2024-08-23 09:00] VITALS: BP 126/86; PULSE 89; RESP 16; TEMP 97.4; O2SAT 94
[2024-08-23 13:00] VITALS: BP 111/74; PULSE 72; RESP 20; TEMP 98.8; O2SAT 96
[2024-08-23 17:00] VITALS: BP 129/79; PULSE 88; RESP 22; TEMP 98.1; O2SAT 98
--- NOTE | 2024-08-23 18:12 | DVHPN2 ---
Progress Note Date Seen: Aug 23, 2024 Has the PT tested + for MRSA If YES, has PT been informed?: No Medical Necessity Reason Pt with a Central, PICC or Fol: No Objective vital signs Vital Sign Date Time Temp Pulse Resp B/P (MAP) Pulse Ox O2 Delivery O2 Flow Rate FiO2 08/23/24 17:00 98.1 88 22 129/79 (96) 98 98.1 08/23/24 08:00 Room Air* 0 21 Total Intake and Output 08/22/24 08/22/24 08/23/24 14:59 22:59 06:59 Intake Total 50 ml 440 ml 450 ml Output Total 10 ml 170 ml 970 ml Balance 40 ml 270 ml -520 ml medications Current Medications Medications Dose Ordered Sig/Leonela Route Start Time Stop Time Status Last Admin Dose Admin Vancomycin HCl 0 ml @ 0 mls/hr UD IV 08/19/24 18:00 Acetaminophen 325 mg Q4HP PRN PO 08/19/24 22:45 Enoxaparin Sodium 40 mg DAILY SC 08/19/24 11:00 08/19/24 23:17 40 MG Nitroglycerin 0.4 mg Q5MINP PRN SL 08/19/24 22:45 Meropenem 50 ml @ 50 mls/hr Q8HR IV 08/20/24 14:00 UNV Pantoprazole Sodium 40 mg BID IV 08/20/24 22:00 08/23/24 10:21 40 MG Ondansetron HCl 4 mg Q8HPRN PRN IV 08/20/24 11:00 Meropenem 50 ml @ 17 mls/hr Q8HR@0400,1200,2000 IV 08/20/24 12:00 08/23/24 14:40 17 MLS/HR Ketorolac Tromethamine 30 mg Q6HPRN PRN IV 08/21/24 17:45 08/26/24 17:44 08/23/24 05:38 30 MG Lactated Ringer's 1,000 ml @ 50 mls/hr Q20H IV 08/22/24 16:00 08/22/24 18:28 50 MLS/HR Vancomycin HCl 200 ml @ 200 mls/hr Q8H IV 08/23/24 21:00 laboratory and microbiology Laboratory Tests 08/23/24 05:19 Test 08/23/24 05:19 Range/Units Serum Glucose 121 H 74-106 mg/dL Microbiology Date/Time Source Procedure Growth Status 08/22/24 09:32 Peritoneal Fluid Anaerobic Culture - Preliminary Resulted 08/22/24 09:32 Peritoneal Fluid Aerobic Culture - Preliminary Resulted 08/21/24 11:35 Blood Blood Culture - Preliminary NO GROWTH AFTER 48 HOURS OF INCUBATION. Resulted Problem List/Assessment/Plan Problem List/Assessment/Plan AFEBRILE VSS WBC 18 ELEVATED BUT TRENDING DOWN ABD SOFT LESS TENDER RLQ AND LLQ BM + FLATUS + PAIN IS LESS AND CONTROLLED WITH MEDS S/P LAP/OPEN DRAINAGE INTRAABD ABSCESS DRAIN IN PLACE SEROSANGUINEOUS NPO IV ABX CLOSE OBSERVATION ID EVAL NOTED Plan discussed with: Patient Dietary Evaluation Review Comments: Advance to diet as tolerated after the surgery. Monitor PO intake to meet 75% of his needs, Expected Outcomes/Goals: Healed incisions. Gradual weight loss. DAYANARA SADLER MD Aug 23, 2024 18:12
[2024-08-23 20:00] VITALS: PULSE 80; RESP 20; O2SAT 93
[2024-08-23 21:00] VITALS: BP 114/70; PULSE 80; RESP 20; TEMP 97.8; O2SAT 97
[2024-08-23] MEDS: VANCOMYCIN 1GM/200ML PREMIX 200 ML IV SCH (21:01)
[2024-08-24] VITALS (7 sets, daily range): BP systolic 111–128; BP diastolic 69–80; PULSE 65–90; RESP 18–20; TEMP 97.5–98.5; O2SAT 92–98
[2024-08-24] MEDS: ACETAMINOPHEN 325 MG TAB PO PRN (04:26)
[2024-08-24 06:20] LABS: Basophils # (auto) 0 10 ^3/uL (0-0.2); Basophils % (auto) 0.2 % (0.0-2.0); Eosinophils # (auto) 0.1 10 ^3/uL (0-0.8); Eosinophils % (auto) 1.1 % (0.0-7.0); Lymphocytes # (auto) 2.3 10 ^3/uL (0.4-5.4); Monocytes # (auto) 0.6 10 ^3/uL (0-1.3); Monocytes % (auto) 5.6 % (0.0-12.0); White Blood Cell 11.5 10^3/uL (4.4-10.8)
[2024-08-24 06:23] LABS: Hematocrit 33.2 % (41.0-53.0); Lymphocytes % (auto) 19.8 % (10.0-50.0); Mean Corpuscular Hemoglobin 29.1 pg (28.0-32.0); Mean Corpuscular Hgb Conc. 33.2 g/dL (32.0-36.0); Mean Corpuscular Volume 87.5 fL (80.0-100.0); Neutrophils # (auto) 8.4 10 ^3/uL (1.6-8.6); Neutrophils % (auto) 73.3 % (37.0-80.0); Platelet Count (auto) 490 10^3/uL (140-450); Red Blood Cells 3.79 10^6/uL (4.5-5.90); Red Cell Distribution Width 13.6 % (11.8-14.3)
[2024-08-24 06:45] LABS: Alanine Aminotransferase 17 U/L (7-40); Albumin 3.4 g/dL (3.2-4.8); Alkaline Phosphatase 69 U/L (46-116); Anion Gap 9 (5-15); Aspartate Aminotransferase 16 U/L (13-40); BUN/Creatinine Ratio 18.8 (10.0-20.0); Bilirubin, Total 0.3 mg/dL (0.2-1.0); Blood Urea Nitrogen 13 mg/dL (9-23); Carbon Dioxide 24 mmol/L (20-31); Chloride 108 mmol/L (98-107); Glucose 86 mg/dL (74-106); Potassium 3.8 mmol/L (3.5-5.1); Sodium 141 mmol/L (136-145)
[2024-08-24 06:46] LABS: Total Protein 5.8 g/dL (5.7-8.2)
--- NOTE | 2024-08-24 07:46 | DVHPNRES ---
Progress Note Date Seen: Aug 24, 2024 Resident Creating Document: MIHAI GONZALES RESIDENT Has the PT tested + for MRSA If YES, has PT been informed?: No Medical Necessity Reason Pt with a Central, PICC or Fol: No Subjective Review of Systems Patient is passing bowel 3 times this morning, passing flatus, no signs of GI obstruction. Serosanguineous fluid noted in the MARYSE drain. Pain well controlled. Patient reports: No new complaints, Feels better Changes from previous H/P or p: No Changes Review of Systems: HEENT:Normal, CVS:Normal, RESPIRATORY:Normal, GI:Abnormal (MARYSE drain, ), :Normal, MSK:Normal, NEURO:Normal Objective vital signs Vital Sign Date Time Temp Pulse Resp B/P (MAP) Pulse Ox O2 Delivery O2 Flow Rate FiO2 08/24/24 05:00 97.5 76 20 111/80 (90) 97 97.5 08/23/24 20:00 Room Air* 0 21 Total Intake and Output 08/23/24 08/23/24 08/24/24 15:00 23:00 07:00 Intake Total 250 ml 250 ml 50 ml Output Total 1150 ml 350 ml Balance 250 ml -900 ml -300 ml medications Current Medications Medications Dose Ordered Sig/Leonela Route Start Time Stop Time Status Last Admin Dose Admin Vancomycin HCl 0 ml @ 0 mls/hr UD IV 08/19/24 18:00 Acetaminophen 325 mg Q4HP PRN PO 08/19/24 22:45 08/24/24 04:26 325 MG Enoxaparin Sodium 40 mg DAILY SC 08/19/24 11:00 08/19/24 23:17 40 MG Nitroglycerin 0.4 mg Q5MINP PRN SL 08/19/24 22:45 Meropenem 50 ml @ 50 mls/hr Q8HR IV 08/20/24 14:00 UNV Pantoprazole Sodium 40 mg BID IV 08/20/24 22:00 08/23/24 22:22 40 MG Ondansetron HCl 4 mg Q8HPRN PRN IV 08/20/24 11:00 Meropenem 50 ml @ 17 mls/hr Q8HR@0400,1200,2000 IV 08/20/24 12:00 08/24/24 04:16 17 MLS/HR Ketorolac Tromethamine 30 mg Q6HPRN PRN IV 08/21/24 17:45 08/26/24 17:44 08/23/24 21:23 30 MG Lactated Ringer's 1,000 ml @ 50 mls/hr Q20H IV 08/22/24 16:00 08/22/24 18:28 50 MLS/HR Vancomycin HCl 200 ml @ 200 mls/hr Q8H IV 08/23/24 21:00 08/24/24 04:52 200 MLS/HR Examination: GENERAL:Normal, HEENT:Normal, NECK:Normal, LUNGS:Normal, CVS:Normal, ABDOMEN:Abnormal (Patient has intact surgical scar, intact MARYSE drain, patient is wearing the abdominal binder, able to walk.), MSK:Normal, SKIN:Normal, NEURO:Normal laboratory and microbiology Laboratory Tests 08/24/24 05:27 Test 08/24/24 05:27 Range/Units Serum Glucose 86 74-106 mg/dL Microbiology Date/Time Source Procedure Growth Status 08/22/24 09:32 Peritoneal Fluid Anaerobic Culture - Preliminary Resulted 08/22/24 09:32 Peritoneal Fluid Aerobic Culture - Preliminary Resulted 08/21/24 11:35 Blood Blood Culture - Preliminary NO GROWTH AFTER 48 HOURS OF INCUBATION. Resulted Labs and/or images reviewed: Labs reviewed by me, Image(s) reviewed by me Problem List/Assessment/Plan Problem List/Assessment/Plan Hospital Course: Mr. Donald 44-year-old male, Past medical history significant for recent ruptured appendix status post appendectomy, 25 days post surgically, presented with severe right lower quadrant dull abdominal pain, sudden onset and at peak rated 10 out of 10 associated with intermittent sharp episodes, chills, malaise and nausea. He reports painful bowel movements and groin pain after MARYSE drain removal post surgically that gradually developed to the presenting symptoms. Patient denies vomiting, bleeding, chest pain, shortness of breath, syncope or other GI symptoms. Recent ultrasound in [facility] ruled out renal stone. Status post IV antibiotics repeat CT scan shows no improvement of right lower quadrant abscess. Patient is hemodynamically stable, not amenable to drain by IR. Status post repeat surgical revision to remove abscess, hemodynamically stable, BMx3 + passing flatus. # Post surgical intra-abdominal abscess: S/p IV meropenem (Gram -ves including Pseudomonas coverage) and vancomycin ( for staph aureus coverage.) Follow blood culture. pain management with NSAIDs, sq.6 IV Toradol 30 mg, given allergy to morphine. As needed Zofran. Postdrainage culture E coli. Changed to IV ceftriaxone, rest cultures pending. Appreciate surgery input, status post surgical drainage. MARYSE drain in place sanguineous drainage, follow output. # Sepsis due to above: Leukocytes improved significantly, off of sepsis. CBC follow up tomorrow. # History of Status post ruptured appendix s/p surgical intervention # Known allergic to fluoroquinolones, penicillins and morphine: cephalosporins have lower cross reaction to penicillins. so will try ceftriaxone iv. hold if there is allergic reaction. # Bibasilar atelectasis: incentive spirometry q1 hour continue # normocytic anemia: Presented with 15.3, now hemoglobin 12.9, likely dilution, close monitoring, repeat CBC tomorrow. Healthy gentleman with a transfusion threshold of 7 or less of hemoglobin. FOBT -ve unlikely a case of GI bleed. # Intra-abdominal viscus rupture , ruled out. # DVT prophylaxis: Kaycee score of 7, high-risk of VTE. Continue prophylaxis with Lovenox, close monitoring of CBC and platelets. # PUD prophylaxis: continue ppi. # Thrombocytosis: likely reactive # diet: NPO, still GI inflammation. Will wait for surgery input for the starting clear liquid diet. # grade 1 obesity Barriers to discharge: Status post revision surgery day 3. Review with surgery tomorrow. Hemodynamically stable. Discharge planning when able to tolerate oral diet. PCP: Dr. Joe. Case discussed with Dr. Vegas. Code status: Full code. Complex patient care discussion needed total 41 minutes. 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 Monitor PO intake to meet 75% of his needs, Expected Outcomes/Goals: Healed incisions. Gradual weight loss. Date of Service: Aug 24, 2024 Billing Provider: DIANNE VEGAS MD Common Visit Codes: [id number] INP/OBS CARE(HIGH) MIHAI GONZALES Aug 24, 2024 07:46 DIANNE VEGAS MD Aug 24, 2024 17:40
--- NOTE | 2024-08-24 23:27 | DVHPN2 ---
Progress Note Date Seen: Aug 24, 2024 Has the PT tested + for MRSA If YES, has PT been informed?: No Medical Necessity Reason Pt with a Central, PICC or Fol: No Objective vital signs Vital Sign Date Time Temp Pulse Resp B/P (MAP) Pulse Ox O2 Delivery O2 Flow Rate FiO2 08/24/24 21:00 98.5 90 18 128/78 (95) 96 98.5 08/24/24 08:00 Room Air* 0 21 Total Intake and Output 08/23/24 08/23/24 08/24/24 15:00 23:00 07:00 Intake Total 250 ml 250 ml 50 ml Output Total 1150 ml 350 ml Balance 250 ml -900 ml -300 ml medications Current Medications Medications Dose Ordered Sig/Leonela Route Start Time Stop Time Status Last Admin Dose Admin Vancomycin HCl 0 ml @ 0 mls/hr UD IV 08/19/24 18:00 Acetaminophen 325 mg Q4HP PRN PO 08/19/24 22:45 08/24/24 20:58 325 MG Enoxaparin Sodium 40 mg DAILY SC 08/19/24 11:00 08/19/24 23:17 40 MG Nitroglycerin 0.4 mg Q5MINP PRN SL 08/19/24 22:45 Meropenem 50 ml @ 50 mls/hr Q8HR IV 08/20/24 14:00 UNV Pantoprazole Sodium 40 mg BID IV 08/20/24 22:00 08/24/24 22:05 40 MG Ondansetron HCl 4 mg Q8HPRN PRN IV 08/20/24 11:00 Ketorolac Tromethamine 30 mg Q6HPRN PRN IV 08/21/24 17:45 08/26/24 17:44 08/24/24 22:05 30 MG Lactated Ringer's 1,000 ml @ 50 mls/hr Q20H IV 08/22/24 16:00 08/24/24 08:00 50 MLS/HR Vancomycin HCl 200 ml @ 200 mls/hr Q8H IV 08/23/24 21:00 08/24/24 21:15 200 MLS/HR Ceftriaxone Sodium 50 ml @ 100 mls/hr DAILY@09 IV 08/25/24 09:00 laboratory and microbiology Laboratory Tests 08/24/24 05:27 Test 08/24/24 05:27 Range/Units Serum Glucose 86 74-106 mg/dL Microbiology Date/Time Source Procedure Growth Status 08/22/24 09:32 Peritoneal Fluid Anaerobic Culture - Preliminary Resulted 08/22/24 09:32 Aerobic Culture - Preliminary Escherichia coli Resulted 08/21/24 11:35 Blood Blood Culture - Preliminary NO GROWTH AFTER 72 HOURS OF INCUBATION. Resulted Problem List/Assessment/Plan Problem List/Assessment/Plan AFEBRILE VSS WBC DOWN ABD SOFT LESS TENDER RLQ AND LLQ BM + FLATUS + PAIN IS LESS AND CONTROLLED WITH MEDS S/P LAP/OPEN DRAINAGE INTRAABD ABSCESS DRAIN IN PLACE SEROSANGUINEOUS NPO IV ABX CLOSE OBSERVATION ID EVAL NOTED Plan discussed with: Patient Dietary Evaluation Review Comments: Advance to diet as tolerated after the surgery. Monitor PO intake to meet 75% of his needs, Expected Outcomes/Goals: Healed incisions. Gradual weight loss. DAYANARA SADLER MD Aug 24, 2024 23:27
[2024-08-25] VITALS (8 sets, daily range): BP systolic 113–131; BP diastolic 59–82; PULSE 68–92; RESP 16–18; TEMP 97.8–99.2; O2SAT 95–98
[2024-08-25 05:41] LABS: Basophils # (auto) 0.1 10 ^3/uL (0-0.2); Basophils % (auto) 0.4 % (0.0-2.0); Eosinophils # (auto) 0.2 10 ^3/uL (0-0.8); Eosinophils % (auto) 1.7 % (0.0-7.0); Hematocrit 36.6 % (41.0-53.0); Hemoglobin 12.3 g/dL (13.5-17.5); Lymphocytes # (auto) 1.6 10 ^3/uL (0.4-5.4); Lymphocytes % (auto) 13.6 % (10.0-50.0); Mean Corpuscular Hemoglobin 28.7 pg (28.0-32.0); Mean Corpuscular Hgb Conc. 33.7 g/dL (32.0-36.0); Mean Corpuscular Volume 85.1 fL (80.0-100.0); Monocytes # (auto) 0.7 10 ^3/uL (0-1.3); Monocytes % (auto) 6.4 % (0.0-12.0); Neutrophils % (auto) 77.9 % (37.0-80.0); Nucleated Red Blood Cells % 0.1 %; Platelet Count (auto) 499 10^3/uL (140-450); Red Blood Cells 4.29 10^6/uL (4.5-5.90); Red Cell Distribution Width 13.2 % (11.8-14.3); White Blood Cell 11.6 10^3/uL (4.4-10.8)
--- NOTE | 2024-08-25 08:19 | DVHPNRES ---
Progress Note Date Seen: Aug 25, 2024 Resident Creating Document: MIHAI GONZALES RESIDENT Has the PT tested + for MRSA If YES, has PT been informed?: No Medical Necessity Reason Pt with a Central, PICC or Fol: No Subjective Review of Systems Reviewed the patient at bedside, comfortable, on IV fluid, still NPO, patient wants to go home today really badly. Spoke to Dr. Adorno, waiting for further evaluation for starting clear liquid diet. Otherwise patient vitals stable, afebrile, well-controlled pain. Passing bowel and bladder. Patient reports: No new complaints, Feels better Review of Systems: HEENT:Normal, CVS:Normal, RESPIRATORY:Normal, GI:Normal (Surgical scars intact, MARYSE drain intact, passing bowel , flatus and bladder), :Normal, MSK:Normal, MSK:Abnormal, NEURO:Abnormal Objective vital signs Vital Sign Date Time Temp Pulse Resp B/P (MAP) Pulse Ox O2 Delivery O2 Flow Rate FiO2 08/25/24 05:00 98.7 68 18 127/71 (89) 97 98.7 08/24/24 20:00 Room Air* 0 21 Total Intake and Output 08/24/24 08/24/24 08/25/24 15:00 23:00 07:00 Intake Total 250 ml 1486 ml 200 ml Balance 250 ml 1486 ml 200 ml medications Current Medications Medications Dose Ordered Sig/Leonela Route Start Time Stop Time Status Last Admin Dose Admin Vancomycin HCl 0 ml @ 0 mls/hr UD IV 08/19/24 18:00 Acetaminophen 325 mg Q4HP PRN PO 08/19/24 22:45 08/24/24 20:58 325 MG Enoxaparin Sodium 40 mg DAILY SC 08/19/24 11:00 08/19/24 23:17 40 MG Nitroglycerin 0.4 mg Q5MINP PRN SL 08/19/24 22:45 Meropenem 50 ml @ 50 mls/hr Q8HR IV 08/20/24 14:00 UNV Pantoprazole Sodium 40 mg BID IV 08/20/24 22:00 08/24/24 22:05 40 MG Ondansetron HCl 4 mg Q8HPRN PRN IV 08/20/24 11:00 Ketorolac Tromethamine 30 mg Q6HPRN PRN IV 08/21/24 17:45 08/26/24 17:44 08/25/24 04:30 30 MG Lactated Ringer's 1,000 ml @ 50 mls/hr Q20H IV 08/22/24 16:00 08/25/24 04:07 50 MLS/HR Vancomycin HCl 200 ml @ 200 mls/hr Q8H IV 08/23/24 21:00 08/25/24 05:01 200 MLS/HR Ceftriaxone Sodium 50 ml @ 100 mls/hr DAILY@09 IV 08/25/24 09:00 Examination: GENERAL:Normal, HEENT:Normal, NECK:Normal, LUNGS:Normal, CVS:Normal, ABDOMEN:Abnormal (On abdominal binder, MARYSE drain intact, minimal serosanguineous fluid noted. No tenderness or discharge noted. Healthy surgical scars.), MSK:Normal, SKIN:Normal, NEURO:Normal, :Normal laboratory and microbiology Laboratory Tests 08/25/24 05:31 08/24/24 05:27 Test 08/24/24 05:27 Range/Units Serum Glucose 86 74-106 mg/dL Microbiology Date/Time Source Procedure Growth Status 08/22/24 09:32 Peritoneal Fluid Anaerobic Culture - Preliminary Resulted 08/22/24 09:32 Aerobic Culture - Preliminary Escherichia coli Resulted 08/21/24 11:35 Blood Blood Culture - Preliminary NO GROWTH AFTER 72 HOURS OF INCUBATION. Resulted Labs and/or images reviewed: Labs reviewed by me, Image(s) reviewed by me Problem List/Assessment/Plan Problem List/Assessment/Plan Hospital Course: Mr. Donald 44-year-old male, Past medical history significant for recent ruptured appendix status post appendectomy, 25 days post surgically, presented with severe right lower quadrant dull abdominal pain, sudden onset and at peak rated 10 out of 10 associated with intermittent sharp episodes, chills, malaise and nausea. He reports painful bowel movements and groin pain after MARYSE drain removal post surgically that gradually developed to the presenting symptoms. Patient denies vomiting, bleeding, chest pain, shortness of breath, syncope or other GI symptoms. Recent ultrasound in [facility] ruled out renal stone. Status post IV antibiotics repeat CT scan shows no improvement of right lower quadrant abscess. Patient is hemodynamically stable, not amenable to drain by IR. Status post repeat surgical revision to remove abscess, hemodynamically stable, BMx3 + hemodynamically stable and afebrile. # Post surgical intra-abdominal abscess: Postdrainage culture E coli. Changed to IV ceftriaxone + metronidazole. rest cultures pending. Appreciate surgery input, status post surgical drainage. MARYSE drain in place sanguineous drainage, follow output. Discontinued vancomycin. ID consulted as per discussion with Dr. Adorno. # Sepsis due to above: Leukocytes improved significantly, off of sepsis. CBC follow up tomorrow. # History of Status post ruptured appendix s/p surgical intervention # Known allergic to fluoroquinolones, penicillins and morphine: cephalosporins have lower cross reaction to penicillins. so will try ceftriaxone iv. hold if there is allergic reaction. # Bibasilar atelectasis: incentive spirometry q1 hour continue, chest bilaterally clear # normocytic anemia: H&H stable FOBT -ve unlikely a case of GI bleed. # Intra-abdominal viscus rupture , ruled out. # DVT prophylaxis: Patient is mobile, moving without any issue. Discontinuing Lovenox. # PUD prophylaxis: continue Oral ppi. # Thrombocytosis: likely reactive # diet: Started clear liquid diet. # grade 1 obesity Barriers to discharge: Starting oral diet to see how patient can tolerate, discharged home if oral diet tolerating. Outpatient follow up with discharge Clinic in 1-2 week, follow up with PCP and surgery outpatient culver, oral antibiotics at discharge. PCP: Dr. Joe. Case discussed with Dr. Vegas. Code status: Full code. Complex patient care discussion needed total 41 minutes. Plan discussed with: Patient, Other My Orders My Orders Orders - MIHAI GONZALES RESIDENT Procedure Category Date Status Time Ceftriaxone 1gm/50ml PHA 08/25/24 In Process D5w (Rocephin) 09:00 Dietary Evaluation Review Comments: Advance to diet as tolerated after the surgery. Monitor PO intake to meet 75% of his needs, Expected Outcomes/Goals: Healed incisions. Gradual weight loss. Labs/Diagnostic Data Laboratory Tests Test 08/25/24 05:31 08/24/24 11:55 Range/Units White Blood Count 11.6 H 4.4-10.8 10^3/uL Red Blood Count 4.29 L 4.5-5.90 10^6/uL Hemoglobin 12.3 L 13.5-17.5 g/dL Hematocrit 36.6 #L 41.0-53.0 % Mean Corpuscular Volume 85.1 80.0-100.0 fL Mean Corpuscular Hemoglobin 28.7 28.0-32.0 pg Mean Corpuscular Hemoglobin Concent 33.7 32.0-36.0 g/dL Red Cell Distribution Width 13.2 11.8-14.3 % Platelet Count 499 H 140-450 10^3/uL Mean Platelet Volume 6.6 L 6.9-10.8 fL Neutrophils (%) (Auto) 77.9 37.0-80.0 % Lymphocytes (%) (Auto) 13.6 10.0-50.0 % Monocytes (%) (Auto) 6.4 0.0-12.0 % Eosinophils (%) (Auto) 1.7 0.0-7.0 % Basophils (%) (Auto) 0.4 0.0-2.0 % Neutrophils # (Auto) 9.0 H 1.6-8.6 10 ^3/uL Lymphocytes # (Auto) 1.6 0.4-5.4 10 ^3/uL Monocytes # (Auto) 0.7 0-1.3 10 ^3/uL Eosinophils # (Auto) 0.2 0-0.8 10 ^3/uL Basophils # (Auto) 0.1 0-0.2 10 ^3/uL Nucleated Red Blood Cells 0.1 % Vancomycin Level Trough 12.2 H 5-10 ug/mL Microbiology Date/Time Source Procedure Growth Status 08/22/24 09:32 Peritoneal Fluid Anaerobic Culture - Preliminary Resulted 08/22/24 09:32 Aerobic Culture - Preliminary Escherichia coli Resulted 08/21/24 11:35 Blood Blood Culture - Preliminary NO GROWTH AFTER 72 HOURS OF INCUBATION. Resulted Date of Service: Aug 25, 2024 Billing Provider: DIANNE VEGAS MD Common Visit Codes: [id number] INP/OBS CARE(MOD) MIHAI GONZALES RESIDENT Aug 25, 2024 08:19 DIANNE VEGAS MD Aug 25, 2024 17:57
[2024-08-25] MEDS: cefTRIAXone 1GM/50ML D5W 50 ML IV SCH (09:46)
--- NOTE | 2024-08-25 13:18 | DVHPN2 ---
Progress Note Date Seen: Aug 25, 2024 Has the PT tested + for MRSA If YES, has PT been informed?: No Medical Necessity Reason Pt with a Central, PICC or Fol: No Objective vital signs Vital Sign Date Time Temp Pulse Resp B/P (MAP) Pulse Ox O2 Delivery O2 Flow Rate FiO2 08/25/24 09:00 98.3 71 16 124/59 (80) 98 98.3 08/24/24 20:00 Room Air* 0 21 Total Intake and Output 08/24/24 08/24/24 08/25/24 14:59 22:59 06:59 Intake Total 250 ml 1486 ml 200 ml Balance 250 ml 1486 ml 200 ml medications Current Medications Medications Dose Ordered Sig/Leonela Route Start Time Stop Time Status Last Admin Dose Admin Acetaminophen 325 mg Q4HP PRN PO 08/19/24 22:45 08/25/24 10:13 325 MG Nitroglycerin 0.4 mg Q5MINP PRN SL 08/19/24 22:45 Meropenem 50 ml @ 50 mls/hr Q8HR IV 08/20/24 14:00 UNV Ondansetron HCl 4 mg Q8HPRN PRN IV 08/20/24 11:00 Ketorolac Tromethamine 30 mg Q6HPRN PRN IV 08/21/24 17:45 08/26/24 17:44 08/25/24 04:30 30 MG Lactated Ringer's 1,000 ml @ 50 mls/hr Q20H IV 08/22/24 16:00 08/25/24 04:07 50 MLS/HR Ceftriaxone Sodium 50 ml @ 100 mls/hr DAILY@09 IV 08/25/24 09:00 08/25/24 09:46 100 MLS/HR Metronidazole 500 mg Q8HR PO 08/25/24 14:00 Pantoprazole Sodium 40 mg DAILY@0600 PO 08/26/24 06:00 laboratory and microbiology Laboratory Tests 08/25/24 05:31 08/24/24 05:27 Test 08/24/24 05:27 Range/Units Serum Glucose 86 74-106 mg/dL Microbiology Date/Time Source Procedure Growth Status 08/22/24 09:32 Peritoneal Fluid Anaerobic Culture - Preliminary Resulted 08/22/24 09:32 Aerobic Culture - Preliminary Escherichia coli Resulted 08/21/24 11:35 Blood Blood Culture - Preliminary NO GROWTH AFTER 72 HOURS OF INCUBATION. Resulted Problem List/Assessment/Plan Problem List/Assessment/Plan AFEBRILE VSS WBC DOWN ABD SOFT LESS TENDER RLQ AND LLQ BM + FLATUS + PAIN IS LESS AND CONTROLLED WITH MEDS DRAIN IN PLACE SEROSANGUINEOUS VINICIO DIET IV ABX CLOSE OBSERVATION ID CONSULT CLEARED FOR DISCHARGE IF ID EVAL DONE Plan discussed with: Patient Dietary Evaluation Review Comments: Advance to diet as tolerated after the surgery. Monitor PO intake to meet 75% of his needs, Expected Outcomes/Goals: Healed incisions. Gradual weight loss. DAYANARA SADLER MD Aug 25, 2024 13:18
[2024-08-25] MEDS: metroNIDAZOLE 500 MG TAB PO SCH (15:01)
[2024-08-25] MEDS: ONDANSETRON HCL 4 MG/2 ML VIAL IV PRN (23:50)
[2024-08-26] VITALS (7 sets, daily range): BP systolic 129–155; BP diastolic 78–90; PULSE 77–95; RESP 16–20; TEMP 97.8–98.7; O2SAT 92–97
[2024-08-26 05:48] LABS: Basophils # (auto) 0 10 ^3/uL (0-0.2); Basophils % (auto) 0.3 % (0.0-2.0); Hemoglobin 12.3 g/dL (13.5-17.5); Neutrophils # (auto) 10.5 10 ^3/uL (1.6-8.6)
[2024-08-26 05:52] LABS: Eosinophils # (auto) 0.2 10 ^3/uL (0-0.8); Eosinophils % (auto) 1.7 % (0.0-7.0); Hematocrit 35.8 % (41.0-53.0); Lymphocytes # (auto) 1.8 10 ^3/uL (0.4-5.4); Lymphocytes % (auto) 13.8 % (10.0-50.0); Mean Corpuscular Hemoglobin 29.1 pg (28.0-32.0); Mean Corpuscular Hgb Conc. 34.3 g/dL (32.0-36.0); Mean Corpuscular Volume 84.8 fL (80.0-100.0); Monocytes # (auto) 0.6 10 ^3/uL (0-1.3); Monocytes % (auto) 4.7 % (0.0-12.0); Neutrophils % (auto) 79.5 % (37.0-80.0); Nucleated Red Blood Cells % 0.1 %; Platelet Count (auto) 484 10^3/uL (140-450); Red Blood Cells 4.22 10^6/uL (4.5-5.90); Red Cell Distribution Width 13.3 % (11.8-14.3); White Blood Cell 13.2 10^3/uL (4.4-10.8)
[2024-08-26] MEDS: PANTOPRAZOLE 40 MG TAB PO SCH (05:54)
[2024-08-26] MEDS ORDERED: VANCOMYCIN PER PHARMACY 0 MG IV SCH (08:00)
[2024-08-26] MEDS: VANCOMYCIN 1GM/200ML PREMIX 200 ML IV SCH (10:09)
--- NOTE | 2024-08-26 15:24 | DVHPN2 ---
Progress Note Date Seen: Aug 26, 2024 Has the PT tested + for MRSA If YES, has PT been informed?: No Medical Necessity Reason Pt with a Central, PICC or Fol: No Objective vital signs Vital Sign Date Time Temp Pulse Resp B/P (MAP) Pulse Ox O2 Delivery O2 Flow Rate FiO2 08/26/24 12:54 98.1 77 20 129/82 (98) 96 98.1 08/26/24 08:00 Room Air* 0 21 Total Intake and Output 08/25/24 08/25/24 08/26/24 15:00 23:00 07:00 Intake Total 800 ml 900 ml Balance 800 ml 900 ml medications Current Medications Medications Dose Ordered Sig/Leonela Route Start Time Stop Time Status Last Admin Dose Admin Acetaminophen 325 mg Q4HP PRN PO 08/19/24 22:45 08/26/24 06:15 325 MG Nitroglycerin 0.4 mg Q5MINP PRN SL 08/19/24 22:45 Meropenem 50 ml @ 50 mls/hr Q8HR IV 08/20/24 14:00 UNV Ondansetron HCl 4 mg Q8HPRN PRN IV 08/20/24 11:00 08/25/24 23:50 4 MG Ketorolac Tromethamine 30 mg Q6HPRN PRN IV 08/21/24 17:45 08/26/24 17:44 08/25/24 04:30 30 MG Pantoprazole Sodium 40 mg DAILY@0600 PO 08/26/24 06:00 08/26/24 05:54 40 MG Vancomycin HCl 0 ml @ 0 mls/hr UD IV 08/26/24 08:00 Piperacillin Sod/ Tazobactam Sod 100 ml @ 25 mls/hr Q6HR IV 08/26/24 12:00 Vancomycin HCl 200 ml @ 200 mls/hr Q8H IV 08/26/24 18:00 laboratory and microbiology Laboratory Tests 08/26/24 05:00 08/24/24 05:27 Test 08/24/24 05:27 Range/Units Serum Glucose 86 74-106 mg/dL Microbiology Date/Time Source Procedure Growth Status 08/22/24 09:32 Peritoneal Fluid Anaerobic Culture - Preliminary Resulted 08/22/24 09:32 Aerobic Culture - Final Escherichia coli Resulted 08/21/24 11:35 Blood Blood Culture - Final NO GROWTH AFTER 5 DAYS OF INCUBATION. Complete Problem List/Assessment/Plan Problem List/Assessment/Plan AFEBRILE VSS WBC ELEVATED ABD SOFT LESS TENDER RLQ AND LLQ BM + FLATUS + PAIN IS LESS AND CONTROLLED WITH MEDS DRAIN IN PLACE SEROSANGUINEOUS IV ABX CLOSE OBSERVATION ID CONSULT KEEP NPO Plan discussed with: Patient Dietary Evaluation Review Comments: Advance to diet as tolerated after the surgery. Monitor PO intake to meet 75% of his needs, Expected Outcomes/Goals: Healed incisions. Gradual weight loss. DAYANARA SADLER MD Aug 26, 2024 15:23
[2024-08-26] MEDS: PIPERACILLIN-TAZOB 3.375GM 100 ML IV SCH (15:40)
--- NOTE | 2024-08-26 17:49 | DVHINCON2 ---
Date of service: Aug 25, 2024 Family History: FH: heart disease G8 MOTHER G8 FATHER G8 BROTHER Parents G8 MOTHER G8 FATHER Allergies: Coded Allergies: Levofloxacin (Verified Allergy, Severe, Bradycardia, 08/19/24) Penicillins (Verified Allergy, Unknown, 08/06/24) Home Meds Active Scripts Hydrocodone-Acetaminophen (Hydrocodone Bitartrate/AC 5-325 mg) 1 Tab Tab, 1 TAB PO QID PRN, #30 TAB Prov:CHANDRIKA VELASCO MD 08/11/24 Metronidazole (Flagyl) 500 Mg Tab, 1 TAB PO TID, #30 TAB Prov:CHANDRIKA VELASCO MD 08/11/24 Levofloxacin Hemihydrate (LEVAQUIN 500 MG) 500 Mg Tab, 1 TAB PO DAILY, #10 TAB Prov:CHANDRIKA VELASCO MD 08/11/24 Reported Medications Allium Sativan Extract (GARLIC) 200 Mg Tab, 1 TAB PO DAILY, TAB 08/07/24 Ascorbic Acid (VITAMIN C TABLET) 500 Mg Tb, 1 TAB PO DAILY, #30 TAB 3 Refills 08/07/24 Current Medications Current Medications Medications (Trade) Dose Ordered Sig/Leonela Route PRN Reason Start Time Stop Time Status Last Admin Pantoprazole Sodium (Protonix Tablet) 40 mg DAILY@0600 PO 08/26/24 06:00 08/26/24 05:54 Vancomycin HCl 0 ml @ 0 mls/hr UD IV 08/26/24 08:00 Cancel Piperacillin Sod/ Tazobactam Sod 100 ml @ 25 mls/hr Q6HR IV 08/26/24 12:00 08/26/24 17:39 DC 08/26/24 15:40 Vancomycin HCl 200 ml @ 200 mls/hr Q1H IV 08/26/24 08:45 08/26/24 10:44 DC 08/26/24 14:31 Vancomycin HCl 200 ml @ 200 mls/hr Q8H IV 08/26/24 18:00 Cancel Lactated Ringer's 1,000 ml @ 75 mls/hr [id number] IV 08/26/24 17:45 UNV Ceftriaxone Sodium/Dextrose 50 ml @ 50 mls/hr DAILY IV 08/27/24 10:00 UNV Vital Signs Vital Signs Date Time Temp Pulse Resp B/P (MAP) Pulse Ox O2 Delivery O2 Flow Rate FiO2 11/1/24 17:16 98.1 81 20 140/81 (100) 97 98.1 08/26/24 08:00 Room Air* 0 21 Labs/Diagnostic Data Labs Test 08/26/24 05:00 08/24/24 11:55 08/24/24 05:27 08/23/24 09:30 Range/Units White Blood Count 13.2 H 4.4-10.8 10^3/uL Red Blood Count 4.22 L 4.5-5.90 10^6/uL Hemoglobin 12.3 L 13.5-17.5 g/dL Hematocrit 35.8 L 41.0-53.0 % Mean Corpuscular Volume 84.8 80.0-100.0 fL Mean Corpuscular Hemoglobin 29.1 28.0-32.0 pg Mean Corpuscular Hemoglobin Concent 34.3 32.0-36.0 g/dL Red Cell Distribution Width 13.3 11.8-14.3 % Platelet Count 484 H 140-450 10^3/uL Mean Platelet Volume 6.9 6.9-10.8 fL Neutrophils (%) (Auto) 79.5 37.0-80.0 % Lymphocytes (%) (Auto) 13.8 10.0-50.0 % Monocytes (%) (Auto) 4.7 0.0-12.0 % Eosinophils (%) (Auto) 1.7 0.0-7.0 % Basophils (%) (Auto) 0.3 0.0-2.0 % Neutrophils # (Auto) 10.5 H 1.6-8.6 10 ^3/uL Lymphocytes # (Auto) 1.8 0.4-5.4 10 ^3/uL Monocytes # (Auto) 0.6 0-1.3 10 ^3/uL Eosinophils # (Auto) 0.2 0-0.8 10 ^3/uL Basophils # (Auto) 0 0-0.2 10 ^3/uL Nucleated Red Blood Cells 0.1 % Vancomycin Level Trough 12.2 H 5-10 ug/mL Sodium Level 141 136-145 mmol/L Potassium Level 3.8 3.5-5.1 mmol/L Chloride Level 108 H 98-107 mmol/L Carbon Dioxide Level 24 20-31 mmol/L Anion Gap 9 5-15 Blood Urea Nitrogen 13 9-23 mg/dL Creatinine 0.69 L 0.700-1.30 mg/dL Glomerular Filtration Rate Calc 116 >90 mL/min BUN/Creatinine Ratio 18.8 10.0-20.0 Serum Glucose 86 74-106 mg/dL Calcium Level 9.0 8.7-10.4 mg/dL Total Bilirubin 0.3 0.2-1.0 mg/dL Aspartate Amino Transferase (AST) 16 13-40 U/L Alanine Aminotransferase (ALT) 17 7-40 U/L Alkaline Phosphatase 69 46-116 U/L Total Protein 5.8 5.7-8.2 g/dL Albumin 3.4 3.2-4.8 g/dL Stool Occult Blood Negative Negative Stool Occult Blood Sample #3 Negative Test 08/20/24 09:09 08/20/24 01:03 08/19/24 17:46 08/19/24 15:23 Range/Units Prothrombin Time 13.9 H 9.3-11.8 sec Prothrombin Time INR 1.34 H 0.9-1.15 Activated Partial Thromboplast Time 29.6 24.5-34.5 SEC Vitamin B12 Level 644 211-911 pg/mL Vitamin D 25-Hydroxy 37.2 30.0-100 ng/mL Thyroid Stimulating Hormone (TSH) 1.64 0.55-4.78 uIU/mL Urine Color Yellow Yellow Urine Clarity Clear Clear Urine pH 6.5 5.0-9.0 Urine Specific [place] 1.049 H 1.001-1.035 Urine Protein Trace H Negative Urine Ketones Trace Negative Urine Blood Trace H Negative /uL Urine Nitrite Negative Negative Urine Bilirubin Negative Negative Urine Urobilinogen Normal Negative mg/dL Urine Leukocyte Esterase Negative Negative /uL Urine RBC 5 0 - 3 /hpf Urine WBC <1 0 - 3 /hpf Urine Squamous Epithelial Cells Few <5 /hpf Urine Bacteria None seen None Seen /hpf Urine Mucus Few None Seen Urine Glucose Normal Normal mg/dL Urine Opiates Screen Pos NEGATIVE Urine Fentanyl Screen Pos NEGATIVE Urine Barbiturates Screen Neg NEGATIVE Urine Phencyclidine Screen Neg NEGATIVE Urine Amphetamines Screen Neg NEGATIVE Urine Benzodiazepines Screen Neg NEGATIVE Urine Cocaine Screen Neg NEGATIVE Urine Cannabinoids Screen Neg NEGATIVE Lactic Acid Level 1.1 0.4-2.0 mmol/L Differential Total Cells Counted 100.0 100 Neutrophils % (Manual) 86 H 37.0-80.0 Band Neutrophils % (Manual) 0 Lymphocytes % (Manual) 4 L 10.0-50.0 Monocytes % (Manual) 10 0-12 Eosinophils % (Manual) 0 0-7 Basophils % (Manual) 0 0.0-2.0 Metamyelocytes % (manual) 0 Myelocytes % (Manual) 0 Promyelocytes % (Manual) 0 Blast Cells % (Manual) 0 Reactive Lymphocytes 0 Platelet Estimate Increased Magnesium Level 2.2 1.6-2.6 mg/dL Lipase 36 12-53 U/L Microbiology Date/Time Source Procedure Growth Status 08/22/24 09:32 Peritoneal Fluid Anaerobic Culture - Preliminary Resulted 08/22/24 09:32 Aerobic Culture - Final Escherichia coli Resulted 08/21/24 11:35 Blood Blood Culture - Final NO GROWTH AFTER 5 DAYS OF INCUBATION. Complete Problems(with codes): (1) Acute appendicitis (2) Acute abdominal pain (3) Leukocytosis, unspecified (4) Intractable nausea and vomiting (5) Postoperative complication (6) Fever (7) Leukocytosis (8) Intra-abdominal abscess (9) Sepsis (10) Post op infection Plan/Recommendation ASSESSMENT AND PLAN: ID Problem List: Acute appendicitis Intra-abdominal abscess Recurrence of abscess Sepsis Assessment: This is a 44-year-old male with a past medical history of chronic back pain and morbid obesity. The patient initially presented on August 07 with acute abdominal pain, nausea, and vomiting. Labs at the time showed a WBC count of 22, platelets of 227, BUN of 9, and creatinine of 0.8. The patient underwent a laparoscopic appendectomy and lysis of adhesions on the same day. Post-surgical findings on August 08 indicated small bilateral pleural effusions, free air in the right lower quadrant likely secondary to surgery, and extensive post-surgical inflammatory changes in the right lower quadrant. Subsequent imaging showed a developing abscess in the right lower quadrant. reasons for abscess recurrence: e.coli is resistant to outpatient oral levofloxacin given (levofloxacin has low barrier to resistance) abscesses are rather large in size (some as large as 5cm) for oral antibiotics to be sufficient - there is minimal drainage output thus far from the drain to rectify this possibly of bowel leak Plan: Continue drainage of the abscess. Initiate IV antibiotics: Ceftriaxone 2g x 30 days. continue oral flagyl x 30 days Arrange for PICC placement and home health. Surgical follow-up to monitor and eventually remove the drain. Schedule follow-up CT in one month post-antibiotics to ensure resolution of the abscess. Isolation Precautions: Standard Assessment and plan were discussed with the patient as written above. Plan is subject to change pending incorporation of new incoming information/diagnostics. Updates may be added as an addendum. Thank you for your consult. I will continue to follow. Please contact Infectious Disease for any questions or concerns. Rafael Thakur M.D. [facility] Ph: ? ? Teams text: [email or web address] Electronically signed by: Rafael Thakur MD, 08/26/2024 History: The patient's chart and medications were reviewed in detail and the patient was seen and examined. History obtained from: patient Sushil Donald is a 44-year-old male with a past medical history of chronic back pain and morbid obesity, presenting with severe abdominal pain and a confirmed diagnosis of acute appendicitis and intra-abdominal abscess on August 07, 2024. Review of Systems: A complete 10 system review of systems was completed and negative except as noted in the HPI or here. ROS: -CONSTITUTIONAL: Denies weight loss, fever, and chills. -HEENT: Denies changes in vision and hearing. -RESPIRATORY: Denies SOB and cough. -CV: Denies palpitations and chest pain. -GI: Reports abdominal pain, nausea, vomiting. -: Denies dysuria and urinary frequency. -MSK: Denies myalgia and joint pain. -SKIN: Denies rash and pruritus. -NEUROLOGICAL: Denies headache and syncope. -PSYCHIATRIC: Denies anxiety and depression. Past Medical History: Chronic back pain Morbid obesity Past Surgical History: Laparoscopic appendectomy and lysis of adhesions on 08/07/2024 Home Medications: Hydrocodone-acetaminophen (NORCO) 10-325 mg per tablet: Take 1 tablet by mouth every 6 hours as needed for pain. Allergies: No Known Allergies Family History: Heart disease in mother, father, and brother. Social History: -Smoking status: Never -Alcohol use: Never -Drug use: Never -Sexual activity: Not currently Objective: Vital Signs on Arrival: Temp: 36.3 C (97.4 F) BP: 110/68 Pulse: 75 Resp: 16 SpO2: 96 % Most Recent Vital Signs: Temp: 36.5 C (97.7 F) BP: 133/66 Pulse: 75 Resp: 16 SpO2: 96 % on room air Physical Exam: -General: NAD -Neck: Supple. No masses. -HEENT: PERRL. Normal lids and conjunctiva. Moist mucous membranes. Oropharynx without lesions, exudates, or excessive erythema. Normal appearance of the external aspects of the nose and ears. -Heart: Regular rhythm, normal rate. No murmur. No lower extremity edema. -Lungs: Normal respiratory effort. Clear to auscultation bilaterally. No wheezes. No crackles. -Abdomen: Soft. Non-tender. Non-distended. No masses or abdominal hernia. Significant tenderness in the right lower quadrant with mild distension. -Msk: No digital cyanosis. Normal strength and tone in all 4 limbs. -Skin: Warm and dry, no rashes. -Neuro: Alert. No facial droop or slurred speech. Extra-ocular movements intact. Sensation intact to soft touch in all 4 limbs. -Psych: Appropriate mood. Full affect. Oriented to person, place, time, and situation. Diagnostic Studies: Available diagnostic studies were reviewed personally. Significant relevant results and findings are outlined below or addressed in the Assessment and Plan above. Pertinent Imaging: Recent Results: CT imaging of the abdomen and pelvis on 08/08/2024 showed: Small bilateral pleural effusions. Post-surgical changes in the right lower quadrant. Free air in the right lower quadrant, likely secondary to surgery. Extensive inflammatory changes in the right lower quadrant. Follow-up CT on 08/19/2024 showed: Developing abscess in the right lower quadrant measuring 56mm. Bowel wall thickening, potentially related to a bowel leak. Repeat imaging post-drain placement showed: Persistent fluid collection in the right lower quadrant. Small bowel loop wall thickening in the right lower quadrant. Plan discussed with: Patient RAFAEL THAKUR MD Aug 26, 2024 17:49
--- NOTE | 2024-08-26 17:54 | DVHPNRES ---
Progress Note Date Seen: Aug 26, 2024 Resident Creating Document: MIHAI GONZALES RESIDENT Has the PT tested + for MRSA If YES, has PT been informed?: No Medical Necessity Reason Pt with a Central, PICC or Fol: No Subjective Review of Systems Saw the patient at the bed side, patient was eager to go home, but after counseling he agreeable to stay in hospital. Now in a separate room which is helping him to sleep better. Discussed with his PCP Dr. Joe. Patient reports: No new complaints, Feels better Changes from previous H/P or p: No Changes Review of Systems: HEENT:Normal, CVS:Normal, RESPIRATORY:Normal, GI:Abnormal, :Normal, MSK:Normal, NEURO:Normal Objective vital signs Vital Sign Date Time Temp Pulse Resp B/P (MAP) Pulse Ox O2 Delivery O2 Flow Rate FiO2 08/26/24 17:16 98.1 81 20 140/81 (100) 97 98.1 08/26/24 08:00 Room Air* 0 21 Total Intake and Output 08/25/24 08/25/24 08/26/24 15:00 23:00 07:00 Intake Total 800 ml 900 ml Balance 800 ml 900 ml medications Current Medications Medications Dose Ordered Sig/Leonela Route Start Time Stop Time Status Last Admin Dose Admin Acetaminophen 325 mg Q4HP PRN PO 08/19/24 22:45 08/26/24 06:15 325 MG Nitroglycerin 0.4 mg Q5MINP PRN SL 08/19/24 22:45 Meropenem 50 ml @ 50 mls/hr Q8HR IV 08/20/24 14:00 UNV Ondansetron HCl 4 mg Q8HPRN PRN IV 08/20/24 11:00 08/25/24 23:50 4 MG Ketorolac Tromethamine 30 mg Q6HPRN PRN IV 08/21/24 17:45 08/26/24 17:44 08/25/24 04:30 30 MG Pantoprazole Sodium 40 mg DAILY@0600 PO 08/26/24 06:00 08/26/24 05:54 40 MG Vancomycin HCl 0 ml @ 0 mls/hr UD IV 08/26/24 08:00 Piperacillin Sod/ Tazobactam Sod 100 ml @ 25 mls/hr Q6HR IV 08/26/24 12:00 08/26/24 15:40 25 MLS/HR Vancomycin HCl 200 ml @ 200 mls/hr Q8H IV 08/26/24 18:00 Lactated Ringer's 1,000 ml @ 75 mls/hr [id number] IV 08/26/24 17:45 UNV Examination: GENERAL:Normal, HEENT:Normal, NECK:Normal, LUNGS:Normal, CVS:Normal, ABDOMEN:Abnormal (No tenderness or guarding, BM positive, surgical scar intact. On abdominal binder, MARYSE drain draining serosanguineous fluid), MSK:Normal, SKIN:Normal, NEURO:Normal, :Normal laboratory and microbiology Laboratory Tests 08/26/24 05:00 08/24/24 05:27 Test 08/24/24 05:27 Range/Units Serum Glucose 86 74-106 mg/dL Microbiology Date/Time Source Procedure Growth Status 08/22/24 09:32 Peritoneal Fluid Anaerobic Culture - Preliminary Resulted 08/22/24 09:32 Aerobic Culture - Final Escherichia coli Resulted 08/21/24 11:35 Blood Blood Culture - Final NO GROWTH AFTER 5 DAYS OF INCUBATION. Complete Labs and/or images reviewed: Labs reviewed by me, Image(s) reviewed by me Problem List/Assessment/Plan Problem List/Assessment/Plan Hospital Course: Mr. Donald 44-year-old male, Past medical history significant for recent ruptured appendix status post appendectomy, 25 days post surgically, presented with severe right lower quadrant dull abdominal pain, sudden onset and at peak rated 10 out of 10 associated with intermittent sharp episodes, chills, malaise and nausea. He reports painful bowel movements and groin pain after MARYSE drain removal post surgically that gradually developed to the presenting symptoms. Patient denies vomiting, bleeding, chest pain, shortness of breath, syncope or other GI symptoms. Recent ultrasound in [facility] ruled out renal stone. Status post IV antibiotics repeat CT scan shows no improvement of right lower quadrant abscess. Patient is hemodynamically stable, not amenable to drain by IR. Status post repeat surgical revision to remove abscess, hemodynamically stable, BMx3 + hemodynamically stable and afebrile. # Post surgical intra-abdominal abscess: Postdrainage culture E coli. Elevated WBC on IV ceftriaxone + metronidazole. Change to IV vancomycin and Zosyn for broader coverage. rest cultures pending. Appreciate surgery input, status post surgical drainage. MARYSE drain in place sanguineous drainage, follow output. ID consulted as per discussion with Dr. Adorno. Waiting for input. # Sepsis due to above: Leukocytes improved significantly, off of sepsis. CBC shows increased WBC from 11->>13, change to broader coverage. # History of Status post ruptured appendix s/p surgical intervention # Known allergic to fluoroquinolones, penicillins and morphine: Tolerating ceftriaxone well. # Bibasilar atelectasis: incentive spirometry q1 hour continue, chest bilaterally clear # normocytic anemia: H&H stable FOBT -ve unlikely a case of GI bleed. # Intra-abdominal viscus rupture , ruled out. # DVT prophylaxis: Patient is mobile, moving without any issue. Discontinuing Lovenox. Encourage movement. # PUD prophylaxis: continue Oral ppi. # Thrombocytosis: likely reactive , stable # diet: NPO for now # grade 1 obesity Barriers to discharge: It isn't showing up trending WBC, deciding on antibiotic regimen. Pending ID input. PCP: Dr. Joe. Case discussed with Dr. Vegas. Code status: Full code. Complex patient care discussion needed total 41 minutes. Plan discussed with: Patient, Other My Orders My Orders Orders - MIHAI GONZALES RESIDENT Procedure Category Date Status Time Npo (Nothing By DIET 08/26/24 Transmitted Mouth) Diet Breakfast Vancomycin,Trough LAB 08/27/24 Verified 09:00 Vancomycin Per MAGUI 08/27/24 In Process Pharmacy Protoc 09:00 Complete Blood Count LAB 08/27/24 Verified 04:00 Creatinine LAB 08/27/24 Verified 04:00 Lactated Ringer's PHA 08/26/24 Logged 17:45 Dietary Evaluation Review Comments: Advance to diet as tolerated after the surgery. Monitor PO intake to meet 75% of his needs, Expected Outcomes/Goals: Healed incisions. Gradual weight loss. Date of Service: Aug 26, 2024 Billing Provider: DIANNE VEGAS MD Common Visit Codes: 80439-[id number] INP/OBS CARE(HIGH) MIHAI GONZALES Aug 26, 2024 17:54 DIANNE VEGAS MD Aug 26, 2024 18:14
[2024-08-26] MEDS ORDERED: VANCOMYCIN 1GM/200ML PREMIX 200 ML IV SCH (18:00)
[2024-08-26] MEDS: cefTRIAXone 2GM/50ML D5W 50 ML IV SCH (18:58)
[2024-08-26] MEDS: LACTATED RINGER'S 1,000 ML IV SCH (18:58)
--- NOTE | 2024-08-26 19:25 | DVHPN2 ---
Consult Progress Note Date Seen: Aug 26, 2024 Subjective Patient reports: Feels better (tolerating oral intake , clear fluids . very little drainage less than 1cc when output from drain . surgical aite is clear dry and intact ) Objective vital signs Vital Sign Date Time Temp Pulse Resp B/P (MAP) Pulse Ox O2 Delivery O2 Flow Rate FiO2 08/26/24 17:16 98.1 81 20 140/81 (100) 97 98.1 08/26/24 08:00 Room Air* 0 21 Total Intake and Output 08/25/24 08/25/24 08/26/24 15:00 23:00 07:00 Intake Total 800 ml 900 ml Balance 800 ml 900 ml medications Current Medications Medications Dose Ordered Sig/Leonela Route Start Time Stop Time Status Last Admin Dose Admin Acetaminophen 325 mg Q4HP PRN PO 08/19/24 22:45 08/26/24 17:51 325 MG Nitroglycerin 0.4 mg Q5MINP PRN SL 08/19/24 22:45 Meropenem 50 ml @ 50 mls/hr Q8HR IV 08/20/24 14:00 UNV Ondansetron HCl 4 mg Q8HPRN PRN IV 08/20/24 11:00 08/25/24 23:50 4 MG Pantoprazole Sodium 40 mg DAILY@0600 PO 08/26/24 06:00 08/26/24 05:54 40 MG Vancomycin HCl 0 ml @ 0 mls/hr UD IV 08/26/24 08:00 Cancel Vancomycin HCl 200 ml @ 200 mls/hr Q8H IV 08/26/24 18:00 Cancel Lactated Ringer's 1,000 ml @ 75 mls/hr [id number] IV 08/26/24 17:45 08/26/24 18:58 75 MLS/HR Ceftriaxone Sodium/Dextrose 50 ml @ 50 mls/hr DAILY IV 08/26/24 17:59 08/26/24 18:58 50 MLS/HR Physical Exam: -General: NAD -Neck: Supple. No masses. -HEENT: PERRL. Normal lids and conjunctiva. Moist mucous membranes. Oropharynx without lesions, exudates, or excessive erythema. Normal appearance of the external aspects of the nose and ears. -Heart: Regular rhythm, normal rate. No murmur. No lower extremity edema. -Lungs: Normal respiratory effort. Clear to auscultation bilaterally. No wheezes. No crackles. -Abdomen: Soft. Non-tender. Non-distended. No masses or abdominal hernia. Significant tenderness in the right lower quadrant with mild distension. -Msk: No digital cyanosis. Normal strength and tone in all 4 limbs. -Skin: Warm and dry, no rashes. -Neuro: Alert. No facial droop or slurred speech. Extra-ocular movements intact. Sensation intact to soft touch in all 4 limbs. -Psych: Appropriate mood. Full affect. Oriented to person, place, time, and situation. laboratory and microbiology Laboratory Tests 08/26/24 05:00 08/24/24 05:27 Test 08/24/24 05:27 Range/Units Serum Glucose 86 74-106 mg/dL Problem List/Assessment/Plan Problems(with codes): (1) Postoperative complication (2) Fever (3) Intra-abdominal abscess (4) Leukocytosis (5) Sepsis (6) Post op infection (7) Acute abdominal pain (8) Acute appendicitis (9) Leukocytosis, unspecified (10) Intractable nausea and vomiting Problem List/Assessment/Plan ASSESSMENT AND PLAN: ID Problem List: Acute appendicitis Intra-abdominal abscess Recurrence of abscess Sepsis Assessment: This is a 44-year-old male with a past medical history of chronic back pain and morbid obesity. The patient initially presented on August 07 with acute abdominal pain, nausea, and vomiting. Labs at the time showed a WBC count of 22, platelets of 227, BUN of 9, and creatinine of 0.8. The patient underwent a laparoscopic appendectomy and lysis of adhesions on the same day. Post-surgical findings on August 08 indicated small bilateral pleural effusions, free air in the right lower quadrant likely secondary to surgery, and extensive post-surgical inflammatory changes in the right lower quadrant. Subsequent imaging showed a developing abscess in the right lower quadrant. reasons for abscess recurrence: e.coli is resistant to outpatient oral levofloxacin given (levofloxacin has low barrier to resistance) abscesses are rather large in size (some as large as 5cm) for oral antibiotics to be sufficient - there is minimal drainage output thus far from the drain to rectify this possibly of bowel leak Plan: Continue drainage of the abscess. Initiate IV antibiotics: Ceftriaxone 2g x 30 days. continue oral flagyl x 30 days Arrange for PICC placement and home health. Surgical follow-up to monitor and eventually remove the drain. Schedule follow-up CT in one month post-antibiotics to ensure resolution of the abscess. Plan discussed with: Patient, Other Dietary Evaluation Review Comments: Advance to diet as tolerated after the surgery. Monitor PO intake to meet 75% of his needs, Expected Outcomes/Goals: Healed incisions. Gradual weight loss. RAFAEL THAKUR MD Aug 26, 2024 19:25
[2024-08-26] MEDS ORDERED: MORPHINE SULFATE INJ 2 MG/ml SYRG IV ONE (23:45)
[2024-08-27 01:00] VITALS: BP 131/77; PULSE 81; RESP 16; TEMP 98.5; O2SAT 96
[2024-08-27 05:00] VITALS: BP 116/82; PULSE 79; RESP 16; TEMP 98.1; O2SAT 96
[2024-08-27 06:01] LABS: Basophils # (auto) 0 10 ^3/uL (0-0.2); Eosinophils # (auto) 0.3 10 ^3/uL (0-0.8); Eosinophils % (auto) 2.4 % (0.0-7.0); Lymphocytes # (auto) 1.5 10 ^3/uL (0.4-5.4); Monocytes # (auto) 0.7 10 ^3/uL (0-1.3); Red Cell Distribution Width 13.3 % (11.8-14.3)
[2024-08-27 06:03] LABS: Basophils % (auto) 0.4 % (0.0-2.0); Hematocrit 33.7 % (41.0-53.0); Hemoglobin 11.6 g/dL (13.5-17.5); Lymphocytes % (auto) 13.1 % (10.0-50.0); Mean Corpuscular Hemoglobin 29.3 pg (28.0-32.0); Mean Corpuscular Hgb Conc. 34.6 g/dL (32.0-36.0); Mean Corpuscular Volume 84.7 fL (80.0-100.0); Monocytes % (auto) 5.9 % (0.0-12.0); Neutrophils # (auto) 8.9 10 ^3/uL (1.6-8.6); Neutrophils % (auto) 78.2 % (37.0-80.0); Platelet Count (auto) 454 10^3/uL (140-450); Red Blood Cells 3.97 10^6/uL (4.5-5.90); White Blood Cell 11.4 10^3/uL (4.4-10.8)
[2024-08-27 06:24] LABS: INR 1.41 (0.9-1.15); Partial Thromboplastin Time 29.5 SEC (24.5-34.5); Prothrombin Time 14.6 sec (9.3-11.8)
--- NOTE | 2024-08-27 07:42 | DVHPNRES ---
Progress Note Date Seen: Aug 27, 2024 Resident Creating Document: MIHAI GONZALES RESIDENT Has the PT tested + for MRSA If YES, has PT been informed?: No Medical Necessity Reason Pt with a Central, PICC or Fol: No Objective vital signs Vital Sign Date Time Temp Pulse Resp B/P (MAP) Pulse Ox O2 Delivery O2 Flow Rate FiO2 08/27/24 05:00 98.1 79 16 116/82 (93) 96 98.1 08/26/24 20:00 Room Air* 0 21 Total Intake and Output 08/26/24 08/26/24 08/27/24 15:00 23:00 07:00 Intake Total 200 ml 1475 ml 725 ml Balance 200 ml 1475 ml 725 ml medications Current Medications Medications Dose Ordered Sig/Leonela Route Start Time Stop Time Status Last Admin Dose Admin Acetaminophen 325 mg Q4HP PRN PO 08/19/24 22:45 08/27/24 06:35 325 MG Nitroglycerin 0.4 mg Q5MINP PRN SL 08/19/24 22:45 Meropenem 50 ml @ 50 mls/hr Q8HR IV 08/20/24 14:00 UNV Ondansetron HCl 4 mg Q8HPRN PRN IV 08/20/24 11:00 08/25/24 23:50 4 MG Pantoprazole Sodium 40 mg DAILY@0600 PO 08/26/24 06:00 08/27/24 06:35 40 MG Vancomycin HCl 0 ml @ 0 mls/hr UD IV 08/26/24 08:00 Cancel Vancomycin HCl 200 ml @ 200 mls/hr Q8H IV 08/26/24 18:00 Cancel Lactated Ringer's 1,000 ml @ 75 mls/hr [id number] IV 08/26/24 17:45 08/26/24 18:58 75 MLS/HR Ceftriaxone Sodium/Dextrose 50 ml @ 50 mls/hr DAILY IV 08/26/24 17:59 08/26/24 18:58 50 MLS/HR laboratory and microbiology Laboratory Tests 08/27/24 05:23 08/24/24 05:27 Test 08/24/24 05:27 Range/Units Serum Glucose 86 74-106 mg/dL Microbiology Date/Time Source Procedure Growth Status 08/22/24 09:32 Peritoneal Fluid Anaerobic Culture - Preliminary Resulted 08/22/24 09:32 Aerobic Culture - Final Escherichia coli Resulted 08/21/24 11:35 Blood Blood Culture - Final NO GROWTH AFTER 5 DAYS OF INCUBATION. Complete Problem List/Assessment/Plan Problem List/Assessment/Plan Hospital Course: Mr. Donald 44-year-old male, Past medical history significant for recent ruptured appendix status post appendectomy, 25 days post surgically, presented with severe right lower quadrant dull abdominal pain, sudden onset and at peak rated 10 out of 10 associated with intermittent sharp episodes, chills, malaise and nausea. He reports painful bowel movements and groin pain after MARYSE drain removal post surgically that gradually developed to the presenting symptoms. Patient denies vomiting, bleeding, chest pain, shortness of breath, syncope or other GI symptoms. Recent ultrasound in [facility] ruled out renal stone. Status post IV antibiotics repeat CT scan shows no improvement of right lower quadrant abscess. Patient is hemodynamically stable, not amenable to drain by IR. Status post repeat surgical revision to remove abscess, hemodynamically stable, BMx3 + hemodynamically stable and afebrile. # Post surgical intra-abdominal abscess: Postdrainage culture E coli. Elevated WBC on IV ceftriaxone + metronidazole. Change to IV vancomycin and Zosyn for broader coverage. rest cultures pending. Appreciate surgery input, status post surgical drainage. MARYSE drain in place sanguineous drainage, follow output. ID consulted as per discussion with Dr. Adorno. Waiting for input. # Sepsis due to above: Leukocytes improved significantly, off of sepsis. CBC shows increased WBC from 11->>13, change to broader coverage. # History of Status post ruptured appendix s/p surgical intervention # Known allergic to fluoroquinolones, penicillins and morphine: Tolerating ceftriaxone well. # Bibasilar atelectasis: incentive spirometry q1 hour continue, chest bilaterally clear # normocytic anemia: H&H stable FOBT -ve unlikely a case of GI bleed. # Intra-abdominal viscus rupture , ruled out. # DVT prophylaxis: Patient is mobile, moving without any issue. Discontinuing Lovenox. Encourage movement. # PUD prophylaxis: continue Oral ppi. # Thrombocytosis: likely reactive , stable # diet: NPO for now # grade 1 obesity Barriers to discharge: It isn't showing up trending WBC, deciding on antibiotic regimen. Pending ID input. PCP: Dr. Joe. Case discussed with Dr. Vegas. Code status: Full code. Complex patient care discussion needed total 41 minutes. My Orders My Orders Orders - MIHAI GONZALES RESIDENT Procedure Category Date Status Time Npo (Nothing By DIET 08/26/24 Transmitted Mouth) Diet Breakfast Vancomycin Per MAGUI 08/27/24 In Process Pharmacy Protoc 09:00 Lactated Ringer's PHA 08/26/24 In Process 17:45 * Patrol Mother CONS 08/27/24 Transmitted Consult Dietary Evaluation Review Comments: Advance to diet as tolerated after the surgery. Monitor PO intake to meet 75% of his needs, Expected Outcomes/Goals: Healed incisions. Gradual weight loss. MIHAI GONZALES RESIDENT Aug 27, 2024 07:41
--- NOTE | 2024-08-27 07:45 | DVHPNRES ---
Progress Note Date Seen: Aug 27, 2024 Resident Creating Document: MIHAI GONZALES RESIDENT Has the PT tested + for MRSA If YES, has PT been informed?: No Medical Necessity Reason Pt with a Central, PICC or Fol: No Subjective Review of Systems Saw the patient at bedside, much more comfortable, intact MARYSE drain. Improved pain and no further fever chills or intra-abdominal symptoms. Patient is passing bowel and bladder well. Patient reports: No new complaints, Feels better Changes from previous H/P or p: No Changes Review of Systems: HEENT:Normal, CVS:Normal, RESPIRATORY:Normal, GI:Normal, :Normal, MSK:Abnormal (Right upper arm PICC line in place, no immediate complication noted.), NEURO:Normal Objective vital signs Vital Sign Date Time Temp Pulse Resp B/P (MAP) Pulse Ox O2 Delivery O2 Flow Rate FiO2 08/27/24 05:00 98.1 79 16 116/82 (93) 96 98.1 08/26/24 20:00 Room Air* 0 21 Total Intake and Output 08/26/24 08/26/24 08/27/24 15:00 23:00 07:00 Intake Total 200 ml 1475 ml 725 ml Balance 200 ml 1475 ml 725 ml medications Current Medications Medications Dose Ordered Sig/Leonela Route Start Time Stop Time Status Last Admin Dose Admin Acetaminophen 325 mg Q4HP PRN PO 08/19/24 22:45 08/27/24 06:35 325 MG Nitroglycerin 0.4 mg Q5MINP PRN SL 08/19/24 22:45 Meropenem 50 ml @ 50 mls/hr Q8HR IV 08/20/24 14:00 UNV Ondansetron HCl 4 mg Q8HPRN PRN IV 08/20/24 11:00 08/25/24 23:50 4 MG Pantoprazole Sodium 40 mg DAILY@0600 PO 08/26/24 06:00 08/27/24 06:35 40 MG Vancomycin HCl 0 ml @ 0 mls/hr UD IV 08/26/24 08:00 Cancel Vancomycin HCl 200 ml @ 200 mls/hr Q8H IV 08/26/24 18:00 Cancel Lactated Ringer's 1,000 ml @ 75 mls/hr [id number] IV 08/26/24 17:45 08/26/24 18:58 75 MLS/HR Ceftriaxone Sodium/Dextrose 50 ml @ 50 mls/hr DAILY IV 08/26/24 17:59 08/26/24 18:58 50 MLS/HR Examination: GENERAL:Normal, HEENT:Normal, NECK:Normal, LUNGS:Normal, CVS:Normal, ABDOMEN:Abnormal (Patient is still on MARYSE drain, serosanguineous fluid output. On abdominal binder, no infection or discharge noted), MSK:Abnormal (Right upper arm recent PICC line in place. No immediate complication noted.), SKIN:Normal, NEURO:Normal laboratory and microbiology Laboratory Tests 08/27/24 05:23 08/24/24 05:27 Test 08/24/24 05:27 Range/Units Serum Glucose 86 74-106 mg/dL Microbiology Date/Time Source Procedure Growth Status 08/22/24 09:32 Peritoneal Fluid Anaerobic Culture - Preliminary Resulted 08/22/24 09:32 Aerobic Culture - Final Escherichia coli Resulted 08/21/24 11:35 Blood Blood Culture - Final NO GROWTH AFTER 5 DAYS OF INCUBATION. Complete Labs and/or images reviewed: Labs reviewed by me, Image(s) reviewed by me Problem List/Assessment/Plan Problem List/Assessment/Plan Hospital course: Mr. Donald, a 44-year-old male with a recent history of a ruptured appendix and appendectomy, presented 25 days post-surgery with severe right lower quadrant abdominal pain, rated 10 out of 10, along with intermittent sharp episodes, chills, malaise, and nausea. He experienced painful bowel movements and groin pain following MARYSE drain removal, which developed into his current symptoms. He denied vomiting, bleeding, chest pain, shortness of breath, syncope, or other GI symptoms. An ultrasound ruled out renal stones. Despite IV antibiotics, a repeat CT scan showed no improvement in the right lower quadrant abscess. He underwent a repeat surgical revision to remove the abscess and is now hemodynamically stable, afebrile, and having regular bowel movements. # Post surgical intra-abdominal abscess: Postdrainage culture E coli along with sparse Streptococcus viridans. Elevated WBC on IV ceftriaxone + metronidazole. Change to IV vancomycin and Zosyn for broader coverage. rest cultures pending. Appreciate surgery input, status post surgical drainage. MARYSE drain in place sanguineous drainage, follow output. Appreciate ID input. Status post PICC line placement. Patient will be discharged home with 30 days of daily IV Rocephin 2 g along with oral [id number] days. # Sepsis due to above at presentation: Leukocytes improved significantly, off of sepsis. CBC shows increased WBC from 11->>13, change to broader coverage, resolved. # History of Status post ruptured appendix s/p surgical intervention # Known allergic to fluoroquinolones, penicillins and morphine: Tolerating ceftriaxone well. # Bibasilar atelectasis: incentive spirometry q1 hour continue, chest bilaterally clear # normocytic anemia: H&H stable FOBT -ve unlikely a case of GI bleed. # Intra-abdominal viscus rupture , ruled out. # DVT prophylaxis: Patient is mobile, moving without any issue. Encourage movement along with hydration. # PUD prophylaxis: continue Oral ppi. # Thrombocytosis: likely reactive , stable, improved # diet: Restarted on full liquid diet, advanced diet as tolerated. # grade 1 obesity PCP: Dr. Joe. Discussed with Dr. Brambila. Code status: Full code. Care discussion needed 39 minutes of discussion. Barriers to discharge: PICC line arranged. Pending home health arrangement for IV antibiotics. Social Work team input appreciated. Patient lives at home with and kids, who will arrange transport. Plan discussed with: Patient, Other (Primary team, RN.) My Orders My Orders Orders - MIHAI GONZALES RESIDENT Procedure Category Date Status Time Npo (Nothing By DIET 08/26/24 Transmitted Mouth) Diet Breakfast Vancomycin Per MAGUI 08/27/24 In Process Pharmacy Protoc 09:00 Lactated Ringer's PHA 08/26/24 In Process 17:45 * Recreational [employer] Technician CONS 08/27/24 Transmitted Consult Dietary Evaluation Review Comments: Advance to diet as tolerated after the surgery. Monitor PO intake to meet 75% of his needs, Expected Outcomes/Goals: Healed incisions. Gradual weight loss. Laboratory Results Laboratory Tests 08/24/24 05:27 08/27/24 05:23 Coagulation Test 08/27/24 05:23 Prothrombin Time 14.6 sec (9.3-11.8) H Prothrombin Time INR 1.41 (0.9-1.15) H Activated Partial Thromboplast Time 29.5 SEC (24.5-34.5) Urinalysis Test 08/20/24 01:03 Urine Color Yellow (Yellow) Urine Clarity Clear (Clear) Urine pH 6.5 (5.0-9.0) Urine Specific [place] 1.049 (1.001-1.035) Urine Protein Trace (Negative) H Urine Ketones Trace (Negative) Urine Blood Trace /uL (Negative) H Urine Nitrite Negative (Negative) Urine Bilirubin Negative (Negative) Urine Urobilinogen Normal mg/dL (Negative) Urine Leukocyte Esterase Negative /uL (Negative) Urine RBC 5 /hpf (0 - 3) Urine WBC <1 /hpf (0 - 3) Urine Squamous Epithelial Cells Few /hpf (<5) Urine Bacteria None seen /hpf (None Seen) Urine Mucus Few (None Seen) Urine Glucose Normal mg/dL (Normal) Microbiology Microbiology Date/Time Source Procedure Growth Status 08/22/24 09:32 Peritoneal Fluid Anaerobic Culture - Preliminary Resulted 08/22/24 09:32 Aerobic Culture - Final Escherichia coli Resulted 08/21/24 11:35 Blood Blood Culture - Final NO GROWTH AFTER 5 DAYS OF INCUBATION. Complete Date of Service: Aug 27, 2024 Billing Provider: ELLIS BRAMBILA MD Common Visit Codes: 21284-[id number] INP/OBS CARE(HIGH) MIHAI GONZALES RESIDENT Aug 27, 2024 07:45 ELLIS BRAMBILA MD Aug 27, 2024 19:13
[2024-08-27 09:00] VITALS: BP 135/86; PULSE 83; RESP 16; TEMP 98.3; O2SAT 96
[2024-08-27 13:00] VITALS: BP 115/87; PULSE 92; RESP 17; TEMP 97.9; O2SAT 96
[2024-08-27] MEDS: LIDOCAINE 1% (LOCAL ANESTH.) PF 5ml SDV ID ONE (14:15)
[2024-08-27 17:00] VITALS: BP 133/86; PULSE 70; RESP 18; TEMP 98; O2SAT 98
[2024-08-27] MEDS: SODIUM CHLOR 0.9% PF (SALINE LOCK) 10ML VIAL/SYR IV SCH (20:15)
[2024-08-27] MEDS: metroNIDAZOLE 500 MG TAB PO SCH (20:15)
[2024-08-27 21:00] VITALS: BP 104/69; PULSE 68; RESP 18; TEMP 97.7; O2SAT 100
[2024-08-28] VITALS (7 sets, daily range): BP systolic 111–141; BP diastolic 77–92; PULSE 72–92; RESP 18–20; TEMP 97.4–98.6; O2SAT 94–98
[2024-08-28 11:55] LABS: Basophils # (auto) 0 10 ^3/uL (0-0.2); Basophils % (auto) 0.3 % (0.0-2.0); Hemoglobin 12.5 g/dL (13.5-17.5); Lymphocytes # (auto) 1.8 10 ^3/uL (0.4-5.4); Monocytes # (auto) 0.5 10 ^3/uL (0-1.3); Red Cell Distribution Width 13.3 % (11.8-14.3)
[2024-08-28 11:56] LABS: Eosinophils # (auto) 0.3 10 ^3/uL (0-0.8); Eosinophils % (auto) 2.3 % (0.0-7.0); Hematocrit 37.3 % (41.0-53.0); Lymphocytes % (auto) 15.9 % (10.0-50.0); Mean Corpuscular Hemoglobin 28.8 pg (28.0-32.0); Mean Corpuscular Hgb Conc. 33.5 g/dL (32.0-36.0); Mean Corpuscular Volume 86.1 fL (80.0-100.0); Monocytes % (auto) 4.5 % (0.0-12.0); Neutrophils # (auto) 8.5 10 ^3/uL (1.6-8.6); Nucleated Red Blood Cells % 0.1 %; Platelet Count (auto) 493 10^3/uL (140-450); Red Blood Cells 4.33 10^6/uL (4.5-5.90)
--- NOTE | 2024-08-28 14:44 | DVHPN2 ---
Progress Note Date Seen: Aug 28, 2024 Has the PT tested + for MRSA If YES, has PT been informed?: No Medical Necessity Reason Pt with a Central, PICC or Fol: No Objective vital signs Vital Sign Date Time Temp Pulse Resp B/P (MAP) Pulse Ox O2 Delivery O2 Flow Rate FiO2 08/28/24 13:00 98.0 92 20 126/77 (93) 94 98.0 08/28/24 08:00 Room Air* 0 21 Total Intake and Output 08/27/24 08/27/24 08/28/24 15:00 23:00 07:00 Intake Total 50 ml 1000 ml 701 ml Balance 50 ml 1000 ml 701 ml medications Current Medications Medications Dose Ordered Sig/Leonela Route Start Time Stop Time Status Last Admin Dose Admin Acetaminophen 325 mg Q4HP PRN PO 08/19/24 22:45 08/27/24 06:35 325 MG Nitroglycerin 0.4 mg Q5MINP PRN SL 08/19/24 22:45 Meropenem 50 ml @ 50 mls/hr Q8HR IV 08/20/24 14:00 UNV Ondansetron HCl 4 mg Q8HPRN PRN IV 08/20/24 11:00 08/25/24 23:50 4 MG Pantoprazole Sodium 40 mg DAILY@0600 PO 08/26/24 06:00 08/28/24 05:27 40 MG Vancomycin HCl 0 ml @ 0 mls/hr UD IV 08/26/24 08:00 Cancel Vancomycin HCl 200 ml @ 200 mls/hr Q8H IV 08/26/24 18:00 Cancel Lactated Ringer's 1,000 ml @ 75 mls/hr [id number] IV 08/26/24 17:45 08/28/24 11:54 75 MLS/HR Ceftriaxone Sodium/Dextrose 50 ml @ 50 mls/hr DAILY IV 08/26/24 17:59 08/28/24 09:52 50 MLS/HR Sodium Chloride 10 ml QSHIFT@,22 IV 08/27/24 22:00 08/28/24 13:58 10 ML Metronidazole 500 mg Q8HR PO 08/27/24 22:00 08/28/24 13:58 500 MG laboratory and microbiology Laboratory Tests 08/28/24 11:15 08/27/24 05:23 08/24/24 05:27 Test 08/24/24 05:27 Range/Units Serum Glucose 86 74-106 mg/dL Microbiology Date/Time Source Procedure Growth Status 08/22/24 09:32 Peritoneal Fluid Anaerobic Culture - Final Complete 08/22/24 09:32 Aerobic Culture - Final Escherichia coli Complete 08/21/24 11:35 Blood Blood Culture - Final NO GROWTH AFTER 5 DAYS OF INCUBATION. Complete Problem List/Assessment/Plan Problem List/Assessment/Plan AFEBRILE VSS WBC TRENDING DOWN ABD SOFT LESS TENDER RLQ AND LLQ BM + FLATUS + PAIN IS LESS AND CONTROLLED WITH MEDS DRAIN IN PLACE SEROSANGUINEOUS IV ABX CLOSE OBSERVATION ID EVAL FOR POSSIBLE DISCHARGE PLANNING Plan discussed with: Patient Dietary Evaluation Review Comments: Advance to diet as tolerated after the surgery. Monitor PO intake to meet 75% of his needs, Expected Outcomes/Goals: Healed incisions. Gradual weight loss. DAYANARA SADLER MD Aug 28, 2024 14:44
--- NOTE | 2024-08-28 14:46 | DVHPNRES ---
Progress Note Date Seen: Aug 28, 2024 Resident Creating Document: CAMERON REEVES RESIDENT Has the PT tested + for MRSA If YES, has PT been informed?: No Medical Necessity Reason Pt with a Central, PICC or Fol: No Subjective Review of Systems Saw the patient at bedside, much more comfortable, intact MARYSE drain. Improved pain and no further fever chills or intra-abdominal symptoms. Patient is passing bowel and bladder well. Patient reports: No new complaints, Feels better Changes from previous H/P or p: No Changes Review of Systems: HEENT:Normal, CVS:Normal, RESPIRATORY:Normal, GI:Normal, :Normal, MSK:Abnormal (Right upper arm PICC line in place, no immediate complication noted.), NEURO:Normal Objective vital signs Vital Sign Date Time Temp Pulse Resp B/P (MAP) Pulse Ox O2 Delivery O2 Flow Rate FiO2 08/28/24 13:00 98.0 92 20 126/77 (93) 94 98.0 08/28/24 08:00 Room Air* 0 21 Total Intake and Output 08/27/24 08/27/24 08/28/24 15:00 23:00 07:00 Intake Total 50 ml 1000 ml 701 ml Balance 50 ml 1000 ml 701 ml medications Current Medications Medications Dose Ordered Sig/Leonela Route Start Time Stop Time Status Last Admin Dose Admin Acetaminophen 325 mg Q4HP PRN PO 08/19/24 22:45 08/27/24 06:35 325 MG Nitroglycerin 0.4 mg Q5MINP PRN SL 08/19/24 22:45 Meropenem 50 ml @ 50 mls/hr Q8HR IV 08/20/24 14:00 UNV Ondansetron HCl 4 mg Q8HPRN PRN IV 08/20/24 11:00 08/25/24 23:50 4 MG Pantoprazole Sodium 40 mg DAILY@0600 PO 08/26/24 06:00 08/28/24 05:27 40 MG Vancomycin HCl 0 ml @ 0 mls/hr UD IV 08/26/24 08:00 Cancel Vancomycin HCl 200 ml @ 200 mls/hr Q8H IV 08/26/24 18:00 Cancel Lactated Ringer's 1,000 ml @ 75 mls/hr [id number] IV 08/26/24 17:45 08/28/24 11:54 75 MLS/HR Ceftriaxone Sodium/Dextrose 50 ml @ 50 mls/hr DAILY IV 08/26/24 17:59 08/28/24 09:52 50 MLS/HR Sodium Chloride 10 ml QSHIFT@10,22 IV 08/27/24 22:00 08/28/24 13:58 10 ML Metronidazole 500 mg Q8HR PO 08/27/24 22:00 08/28/24 13:58 500 MG Examination GENERAL:Normal, HEENT:Normal, NECK:Normal, LUNGS:Normal, CVS:Normal, ABDOMEN:Abnormal (Patient is still on MARYSE drain, serosanguineous fluid output. On abdominal binder, no infection or discharge noted), MSK:Abnormal (Right upper arm recent PICC line in place. No immediate complication noted.), SKIN:Normal, NEURO:Normal laboratory and microbiology Laboratory Tests 08/28/24 11:15 08/27/24 05:23 08/24/24 05:27 Test 08/24/24 05:27 Range/Units Serum Glucose 86 74-106 mg/dL Microbiology Date/Time Source Procedure Growth Status 08/22/24 09:32 Peritoneal Fluid Anaerobic Culture - Final Complete 08/22/24 09:32 Aerobic Culture - Final Escherichia coli Complete 08/21/24 11:35 Blood Blood Culture - Final NO GROWTH AFTER 5 DAYS OF INCUBATION. Complete Problem List/Assessment/Plan Problem List/Assessment/Plan Mr. Donald, a 44-year-old male with a recent history of a ruptured appendix and appendectomy, presented 25 days post-surgery with severe right lower quadrant abdominal pain, rated 10 out of 10, along with intermittent sharp episodes, chills, malaise, and nausea. He experienced painful bowel movements and groin pain following MARYSE drain removal, which developed into his current symptoms. He denied vomiting, bleeding, chest pain, shortness of breath, syncope, or other GI symptoms. An ultrasound ruled out renal stones. Despite IV antibiotics, a repeat CT scan showed no improvement in the right lower quadrant abscess. He underwent a repeat surgical revision to remove the abscess and is now hemodynamically stable, afebrile, and having regular bowel movements. # Post surgical intra-abdominal abscess: Postdrainage culture E coli along with sparse Streptococcus viridans. Elevated WBC on IV ceftriaxone + metronidazole. Change to IV vancomycin and Zosyn for broader coverage. rest cultures pending. Appreciate surgery input, status post surgical drainage. MARYSE drain in place sanguineous drainage, follow output. Appreciate ID input. Status post PICC line placement. Patient will be discharged home with 30 days of daily IV Rocephin 2 g along with oral [id number] days. # Sepsis due to above at presentation: Leukocytes improved significantly, off of sepsis. CBC shows increased WBC from 11->>13, change to broader coverage, resolved. # History of Status post ruptured appendix s/p surgical intervention # Known allergic to fluoroquinolones, penicillins and morphine: Tolerating ceftriaxone well. # Bibasilar atelectasis: incentive spirometry q1 hour continue, chest bilaterally clear # normocytic anemia: H&H stable FOBT -ve unlikely a case of GI bleed. # Intra-abdominal viscus rupture , ruled out. # DVT prophylaxis: Patient is mobile, moving without any issue. Encourage movement along with hydration. # PUD prophylaxis: continue Oral ppi. # Thrombocytosis: likely reactive , stable, improved # diet: Restarted on full liquid diet, advanced diet as tolerated. # grade 1 obesity PCP: Dr. Joe. Discussed with Dr. Brambila. Code status: Full code. Care discussion needed 39 minutes of discussion. Barriers to discharge: PICC line arranged. Pending home health nurse arrangement for IV antibiotics. Social Work team input appreciated. Patient lives at home with and kids, who will arrange transport. Plan discussed with: Patient, Spouse, Other (RN) Dietary Evaluation Review Comments: Advance to diet as tolerated after the surgery. Monitor PO intake to meet 75% of his needs, Expected Outcomes/Goals: Healed incisions. Gradual weight loss. Date of Service: Aug 28, 2024 Billing Provider: ELLIS BRAMBILA MD Common Visit Codes: 51200-[id number] INP/OBS CARE(HIGH) REEVESCAMERON RESIDENT Aug 28, 2024 14:46 ELLIS BRAMBILA MD Aug 29, 2024 06:20
--- NOTE | 2024-08-28 18:28 | DVHPN2 ---
Consult Progress Note Date Seen: Aug 27, 2024 Subjective Patient reports: Feels better (no fever or chills, minimal drain output) Objective vital signs Vital Sign Date Time Temp Pulse Resp B/P (MAP) Pulse Ox O2 Delivery O2 Flow Rate FiO2 08/28/24 13:00 98.0 92 20 126/77 (93) 94 98.0 08/28/24 08:00 Room Air* 0 21 Total Intake and Output 08/27/24 08/27/24 08/28/24 15:00 23:00 07:00 Intake Total 50 ml 1000 ml 701 ml Balance 50 ml 1000 ml 701 ml medications Current Medications Medications Dose Ordered Sig/Leonela Route Start Time Stop Time Status Last Admin Dose Admin Acetaminophen 325 mg Q4HP PRN PO 08/19/24 22:45 08/27/24 06:35 325 MG Nitroglycerin 0.4 mg Q5MINP PRN SL 08/19/24 22:45 Meropenem 50 ml @ 50 mls/hr Q8HR IV 08/20/24 14:00 UNV Ondansetron HCl 4 mg Q8HPRN PRN IV 08/20/24 11:00 08/25/24 23:50 4 MG Pantoprazole Sodium 40 mg DAILY@0600 PO 08/26/24 06:00 08/28/24 05:27 40 MG Vancomycin HCl 0 ml @ 0 mls/hr UD IV 08/26/24 08:00 Cancel Vancomycin HCl 200 ml @ 200 mls/hr Q8H IV 08/26/24 18:00 Cancel Lactated Ringer's 1,000 ml @ 75 mls/hr [id number] IV 08/26/24 17:45 08/28/24 11:54 75 MLS/HR Ceftriaxone Sodium/Dextrose 50 ml @ 50 mls/hr DAILY IV 08/26/24 17:59 08/28/24 09:52 50 MLS/HR Sodium Chloride 10 ml QSHIFT@10,22 IV 08/27/24 22:00 08/28/24 13:58 10 ML Metronidazole 500 mg Q8HR PO 08/27/24 22:00 08/28/24 13:58 500 MG Cefpodoxime Proxetil 200 mg BID PO 08/28/24 22:00 UNV PHYSICAL EXAM: - GENERAL: Alert and oriented x 3. No acute distress. Well-nourished. - EYES: EOMI. Anicteric. - HENT: Moist mucous membranes. No scleral icterus. No cervical lymphadenopathy. - LUNGS: Clear to auscultation bilaterally. No accessory muscle use. - CARDIOVASCULAR: Regular rate and rhythm. No murmur. No JVD. - ABDOMEN: Soft, non-tender and non-distended. No palpable masses. drain site cdi - EXTREMITIES: No edema. Non-tender.?SKIN: No rashes or lesions. Warm. - NEUROLOGIC: No focal neurological deficits. CN II-XII grossly intact, but not individually tested. - PSYCHIATRIC: Cooperative. Appropriate mood and affect. laboratory and microbiology Laboratory Tests 08/28/24 11:15 08/27/24 05:23 08/24/24 05:27 Test 08/24/24 05:27 Range/Units Serum Glucose 86 74-106 mg/dL Problem List/Assessment/Plan Problem List/Assessment/Plan ASSESSMENT AND PLAN: ID Problem List: Acute appendicitis Intra-abdominal abscess Recurrence of abscess Sepsis Assessment: This is a 44-year-old male with a past medical history of chronic back pain and morbid obesity. The patient initially presented on August 07 with acute abdominal pain, nausea, and vomiting. Labs at the time showed a WBC count of 22, platelets of 227, BUN of 9, and creatinine of 0.8. The patient underwent a laparoscopic appendectomy and lysis of adhesions on the same day. Post-surgical findings on August 08 indicated small bilateral pleural effusions, free air in the right lower quadrant likely secondary to surgery, and extensive post-surgical inflammatory changes in the right lower quadrant. Subsequent imaging showed a developing abscess in the right lower quadrant. reasons for abscess recurrence: e.coli is resistant to outpatient oral levofloxacin given (levofloxacin has low barrier to resistance) abscesses are rather large in size (some as large as 5cm) for oral antibiotics to be sufficient - there is minimal drainage output thus far from the drain to rectify this possibly of bowel leak Plan: Continue drainage of the abscess. Initiate IV antibiotics: Ceftriaxone 2g x 30 days. continue oral flagyl x 30 days Arrange for PICC placement and home health. Surgical follow-up to monitor and eventually remove the drain. Schedule follow-up CT in one month post-antibiotics to ensure resolution of the abscess. Plan discussed with: Patient Dietary Evaluation Review Comments: Advance to diet as tolerated after the surgery. Monitor PO intake to meet 75% of his needs, Expected Outcomes/Goals: Healed incisions. Gradual weight loss. RAFAEL THAKUR MD Aug 28, 2024 18:28
--- NOTE | 2024-08-28 19:25 | DVHPN2 ---
Consult Progress Note Date Seen: Aug 28, 2024 Subjective Patient reports: Other ([place] home health coverage , very little drainage from drain , normal bowel movements, tolerating diet ) Objective vital signs Vital Sign Date Time Temp Pulse Resp B/P (MAP) Pulse Ox O2 Delivery O2 Flow Rate FiO2 08/28/24 17:00 98.6 86 20 130/90 (103) 96 98.6 08/28/24 08:00 Room Air* 0 21 Total Intake and Output 08/27/24 08/27/24 08/28/24 15:00 23:00 07:00 Intake Total 50 ml 1000 ml 701 ml Balance 50 ml 1000 ml 701 ml medications Current Medications Medications Dose Ordered Sig/Leonela Route Start Time Stop Time Status Last Admin Dose Admin Acetaminophen 325 mg Q4HP PRN PO 08/19/24 22:45 08/27/24 06:35 325 MG Nitroglycerin 0.4 mg Q5MINP PRN SL 08/19/24 22:45 Meropenem 50 ml @ 50 mls/hr Q8HR IV 08/20/24 14:00 UNV Ondansetron HCl 4 mg Q8HPRN PRN IV 08/20/24 11:00 08/25/24 23:50 4 MG Pantoprazole Sodium 40 mg DAILY@0600 PO 08/26/24 06:00 08/28/24 05:27 40 MG Vancomycin HCl 0 ml @ 0 mls/hr UD IV 08/26/24 08:00 Cancel Vancomycin HCl 200 ml @ 200 mls/hr Q8H IV 08/26/24 18:00 Cancel Lactated Ringer's 1,000 ml @ 75 mls/hr [id number] IV 08/26/24 17:45 08/28/24 11:54 75 MLS/HR Ceftriaxone Sodium/Dextrose 50 ml @ 50 mls/hr DAILY IV 08/26/24 17:59 08/28/24 09:52 50 MLS/HR Sodium Chloride 10 ml QSHIFT@, IV 08/27/24 22:00 08/28/24 13:58 10 ML Metronidazole 500 mg Q8HR PO 08/27/24 22:00 08/28/24 13:58 500 MG Cefpodoxime Proxetil 200 mg BID PO 08/28/24 22:00 UNV PHYSICAL EXAM: - GENERAL: Alert and oriented x 3. No acute distress. Well-nourished. - EYES: EOMI. Anicteric. - HENT: Moist mucous membranes. No scleral icterus. No cervical lymphadenopathy. - LUNGS: Clear to auscultation bilaterally. No accessory muscle use. - CARDIOVASCULAR: Regular rate and rhythm. No murmur. No JVD. - ABDOMEN: Soft, non-tender and non-distended. No palpable masses. drain site cdi - EXTREMITIES: No edema. Non-tender.?SKIN: No rashes or lesions. Warm. - NEUROLOGIC: No focal neurological deficits. CN II-XII grossly intact, but not individually tested. - PSYCHIATRIC: Cooperative. Appropriate mood and affect. laboratory and microbiology Laboratory Tests 08/28/24 11:15 08/27/24 05:23 08/24/24 05:27 Test 08/24/24 05:27 Range/Units Serum Glucose 86 74-106 mg/dL Problem List/Assessment/Plan Problems(with codes): (1) Postoperative complication (2) Fever (3) Leukocytosis (4) Intra-abdominal abscess (5) Sepsis (6) Post op infection (7) Acute abdominal pain (8) Acute appendicitis (9) Leukocytosis, unspecified (10) Intractable nausea and vomiting Problem List/Assessment/Plan ASSESSMENT AND PLAN: ID Problem List: Acute appendicitis Intra-abdominal abscess Recurrence of abscess Sepsis Assessment: This is a 44-year-old male with a past medical history of chronic back pain and morbid obesity. The patient initially presented on August 07 with acute abdominal pain, nausea, and vomiting. Labs at the time showed a WBC count of 22, platelets of 227, BUN of 9, and creatinine of 0.8. The patient underwent a laparoscopic appendectomy and lysis of adhesions on the same day. Post-surgical findings on August 08 indicated small bilateral pleural effusions, free air in the right lower quadrant likely secondary to surgery, and extensive post-surgical inflammatory changes in the right lower quadrant. Subsequent imaging showed a developing abscess in the right lower quadrant. reasons for abscess recurrence: e.coli is resistant to outpatient oral levofloxacin given (levofloxacin has low barrier to resistance) abscesses are rather large in size (some as large as 5cm) for oral antibiotics to be sufficient - there is minimal drainage output thus far from the drain to rectify this possibly of bowel leak 08/28: Doing well , would expect more drainage than we are getting Plan: given that patients insurance is not covering home health antibitotics , would stop ceftriaxone and switch to oral cefpodoxime 300 milligrams 2x a day if able to tolerate while inpatient for 24-34 hours without worsening patient can be discharged on 30 days of medication along with oral flagel 500 milligrams every 8 hours for 30 days Continue drainage of the abscess. continue oral flagyl x 30 days Surgical follow-up to monitor and eventually remove the drain. Schedule follow-up CT in one month post-antibiotics to ensure resolution of the abscess. Plan discussed with: Other Dietary Evaluation Review Comments: Advance to diet as tolerated after the surgery. Monitor PO intake to meet 75% of his needs, Expected Outcomes/Goals: Healed incisions. Gradual weight loss. RAFAEL THAKUR MD Aug 28, 2024 19:25
[2024-08-28] MEDS: CEFPODOXIME PROXETIL 200 MG TAB PO SCH (21:06)
[2024-08-29] VITALS (7 sets, daily range): BP systolic 118–140; BP diastolic 56–94; PULSE 77–96; RESP 16–20; TEMP 98–98.4; O2SAT 93–98
--- NOTE | 2024-08-29 07:40 | DVHDSRES ---
Discharge Summary Date of Admission Resident Creating Document: MIHAI GONZALES RESIDENT Aug 19, 2024 at 22:43 Date of Discharge: Aug 29, 2024 Admitting Diagnosis Right lower quadrant pain, fever, chills, nausea vomiting Wounds: Surgical wounds, clear uncomplicated. Labs/Diagnostic Data: Laboratory Results Test 08/28/24 11:15 08/27/24 05:25 08/27/24 05:23 08/24/24 11:55 White Blood Count 11.0 10^3/uL (4.4-10.8) Red Blood Count 4.33 10^6/uL (4.5-5.90) Hemoglobin 12.5 g/dL (13.5-17.5) Hematocrit 37.3 % (41.0-53.0) Mean Corpuscular Volume 86.1 fL (80.0-100.0) Mean Corpuscular Hemoglobin 28.8 pg (28.0-32.0) Mean Corpuscular Hemoglobin Concent 33.5 g/dL (32.0-36.0) Red Cell Distribution Width 13.3 % (11.8-14.3) Platelet Count 493 10^3/uL (140-450) Mean Platelet Volume 7.0 fL (6.9-10.8) Neutrophils (%) (Auto) 77.0 % (37.0-80.0) Lymphocytes (%) (Auto) 15.9 % (10.0-50.0) Monocytes (%) (Auto) 4.5 % (0.0-12.0) Eosinophils (%) (Auto) 2.3 % (0.0-7.0) Basophils (%) (Auto) 0.3 % (0.0-2.0) Neutrophils # (Auto) 8.5 10 ^3/uL (1.6-8.6) Lymphocytes # (Auto) 1.8 10 ^3/uL (0.4-5.4) Monocytes # (Auto) 0.5 10 ^3/uL (0-1.3) Eosinophils # (Auto) 0.3 10 ^3/uL (0-0.8) Basophils # (Auto) 0 10 ^3/uL (0-0.2) Nucleated Red Blood Cells 0.1 % HIV (1&2) Antibody Negative (Negative) Prothrombin Time 14.6 sec (9.3-11.8) Prothrombin Time INR 1.41 (0.9-1.15) Activated Partial Thromboplast Time 29.5 SEC (24.5-34.5) Creatinine 0.62 mg/dL (0.700-1.30) Glomerular Filtration Rate Calc 119 mL/min (>90) Vancomycin Level Trough 12.2 ug/mL (5-10) Test 08/24/24 05:27 08/23/24 09:30 08/20/24 09:09 08/20/24 01:03 Sodium Level 141 mmol/L (136-145) Potassium Level 3.8 mmol/L (3.5-5.1) Chloride Level 108 mmol/L (98-107) Carbon Dioxide Level 24 mmol/L (20-31) Anion Gap 9 (5-15) Blood Urea Nitrogen 13 mg/dL (9-23) BUN/Creatinine Ratio 18.8 (10.0-20.0) Serum Glucose 86 mg/dL (74-106) Calcium Level 9.0 mg/dL (8.7-10.4) Total Bilirubin 0.3 mg/dL (0.2-1.0) Aspartate Amino Transferase (AST) 16 U/L (13-40) Alanine Aminotransferase (ALT) 17 U/L (7-40) Alkaline Phosphatase 69 U/L (46-116) Total Protein 5.8 g/dL (5.7-8.2) Albumin 3.4 g/dL (3.2-4.8) Stool Occult Blood Negative (Negative) Stool Occult Blood Sample #3 (Negative) Vitamin B12 Level 644 pg/mL (211-911) Vitamin D 25-Hydroxy 37.2 ng/mL (30.0-100) Thyroid Stimulating Hormone (TSH) 1.64 uIU/mL (0.55-4.78) Urine Color Yellow (Yellow) Urine Clarity Clear (Clear) Urine pH 6.5 (5.0-9.0) Urine Specific [place] 1.049 (1.001-1.035) Urine Protein Trace (Negative) Urine Ketones Trace (Negative) Urine Blood Trace /uL (Negative) Urine Nitrite Negative (Negative) Urine Bilirubin Negative (Negative) Urine Urobilinogen Normal mg/dL (Negative) Urine Leukocyte Esterase Negative /uL (Negative) Urine RBC 5 /hpf (0 - 3) Urine WBC <1 /hpf (0 - 3) Urine Squamous Epithelial Cells Few /hpf (<5) Urine Bacteria None seen /hpf (None Seen) Urine Mucus Few (None Seen) Urine Glucose Normal mg/dL (Normal) Urine Opiates Screen Pos (NEGATIVE) Urine Fentanyl Screen Pos (NEGATIVE) Urine Barbiturates Screen Neg (NEGATIVE) Urine Phencyclidine Screen Neg (NEGATIVE) Urine Amphetamines Screen Neg (NEGATIVE) Urine Benzodiazepines Screen Neg (NEGATIVE) Urine Cocaine Screen Neg (NEGATIVE) Urine Cannabinoids Screen Neg (NEGATIVE) Test 08/19/24 17:46 08/19/24 15:23 Lactic Acid Level 1.1 mmol/L (0.4-2.0) Differential Total Cells Counted 100.0 (100) Neutrophils % (Manual) 86 (37.0-80.0) Band Neutrophils % (Manual) 0 Lymphocytes % (Manual) 4 (10.0-50.0) Monocytes % (Manual) 10 (0-12) Eosinophils % (Manual) 0 (0-7) Basophils % (Manual) 0 (0.0-2.0) Metamyelocytes % (manual) 0 Myelocytes % (Manual) 0 Promyelocytes % (Manual) 0 Blast Cells % (Manual) 0 Reactive Lymphocytes 0 Platelet Estimate Increased Magnesium Level 2.2 mg/dL (1.6-2.6) Lipase 36 U/L (12-53) Other Laboratory Tests 08/28/24 11:15 08/27/24 05:23 08/24/24 05:27 Brief Hx & Hospital Course: Hospital course: Mr. Donald, a 44-year-old male with a recent history of a ruptured appendix and appendectomy, presented 25 days post-surgery with severe right lower quadrant abdominal pain, rated 10 out of 10, along with intermittent sharp episodes, chills, malaise, and nausea. He experienced painful bowel movements and groin pain following MARYSE drain removal, which developed into his current symptoms. He denied vomiting, bleeding, chest pain, shortness of breath, syncope, or other GI symptoms. An ultrasound ruled out renal stones. Despite IV antibiotics, a repeat CT scan showed no improvement in the right lower quadrant abscess. He underwent a repeat surgical revision to remove the abscess and is now hemodynamically stable, afebrile, and having regular bowel movements. Postdrainage culture E coli along with sparse Streptococcus viridans. Elevated WBC s/p IV ceftriaxone + metronidazole> Changed to IV vancomycin and Zosyn for broader coverage. Needed surgical drainage. MARYSE drain in place sanguineous drainage, pain subsided. Appreciate ID input. Status post PICC line placement. Patient will be discharged home with Vantin 200mg BID and Flagyl 500mg TID. Will follow Going home on PICC line but outpatient will follow with ID Dr. Ruffin, as might need IV antibiotics given complications. Tolerating diet well, passing flatus, bowel passing and normal bladder. Medical conditions treated in hospital: # Post surgical intra-abdominal abscess s/p surgical drainage. # Sepsis due to above at presentation, resolved. Leukocytes subsided, off of sepsis. # History of Status post ruptured appendix s/p surgical intervention # Known allergic to fluoroquinolones, penicillins and morphine # Bibasilar atelectasis incentive spirometry q1 hour continue. # normocytic anemia, hemodynamically stable, H&H stable # Intra-abdominal viscus rupture , ruled out. # PUD prophylaxis continue Oral ppi. # Thrombocytosis, improved # grade 1 obesity Outpatient follow up: PCP: Dr. Joe. , ID specialist Dr. Ruffin, surgical team Dr. Sadler Discussed with Dr. Saleh. Code status: Full code. Care discussion needed 39 minutes of discussion. Discharge planning needed total 43 minutes of detailed discussion. Patient agreeable to the plan. Consults/Reason for consult General surgery Infectious disease Operations or Procedures [place] [id number] Ph: [phone] DIAGNOSTIC IMAGING Diagnostic Imaging Report : [id number] Signed PATIENT: CAPRI DONALD ACCT: [id number] UNIT: [id number] : 1980 LOC: ER ROOM / BED: / AGE / SEX: 44 / M ADM STATUS: REG ER SERVICE 3252 ORDERING PHYSICIAN: NELSY BUCKNER DO PROCEDURE(s): ABPLIV - CT AB PEL WITH IV CON ONLY REASON: post op Abd Pain ORDER NUMBER(s): [id number], ACCESSION NUMBER(s): [id number] Exam: CT CT AB PEL WITH IV CON ONLY History: post op Abd Pain COMPARISON: None Technique: Multidetector spiral CT of the abdomen and pelvis was performed from lung bases to pubic symphysis. Intravenous contrast was administered during this examination. Portal venous imaging was obtained. Axial, coronal and sagittal multiplanar reformats were performed by the technologist on a separate workstation. Radiation Dose : Abdomen/Pelvis: CTDIvol 16.71 mGy, DLP 963.88 mGy*cm. CONTRAST: Type of contrast: Omni 300 Contrast injected: 100 mL Findings: Lung Bases: No acute or significant lung base finding. Normal heart size. No pleural or pericardial effusion. Liver: The liver is normal in size. No focal lesions. Normal hepatic vascular enhancement. Gallbladder and biliary Tree: Unremarkable Spleen: Unremarkable Pancreas: The pancreas is normal in appearance without focal lesions or abnormal enhancement. Adrenal Glands: Unremarkable Kidneys: No hydronephrosis. Bilateral renal cysts measuring up to 12mm on the right. Bladder: Unremarkable Bowel: The stomach is grossly normal in appearance. There postsurgical changes in the right lower quadrant. There is free fluid with some peripheral enhancement measuring up to 56 mm in this region. There are loops of small bowel with wall thickening in this region. Ascites: There is free fluid in the left and dependent pelvis. Lymphadenopathy: No mesenteric, retroperitoneal or periportal lymphadenopathy. Abdominal wall and Mesentery: Unremarkable. Vasculature: The visualized abdominal aorta is normal in size and caliber. Abdominal and pelvic vessels demonstrate normal enhancement. Pelvic Organs: Unremarkable Musculoskeletal: No aggressive focal bony lesions, acute fractures or dislocation. IMPRESSION: 1. Postsurgical changes in the right lower quadrant with a possible developing abscess measuring up to 56mm. Additional free fluid in the left and dependent pelvis. Associated small bowel wall thickening. Findings could be related to a bowel leak. Clinical correlation and continued follow-up is recommended. Drainage of the abscess could be performed. Radiation optimization: All CT scans at this facility use at least one of these dose optimization techniques: Automated exposure control mA and/or kV adjustment per patient size (includes targeted exams where dose is matched to clinical indication) or iterative reconstruction. HS:Y ATED BY: ABE CONTRERAS MD DICTATED DATE/TIME: 08/19/241653 SIGNED BY: ABE CONTRERAS MD SIGNED DATE/TIME: 08/19/241653 CC: [place] [id number] Ph: [phone] DIAGNOSTIC IMAGING Diagnostic Imaging Report : [id number] Signed PATIENT: CAPRI DONALD ACCT: [id number] UNIT: [id number] : 1980 LOC: ER ROOM / BED: / AGE / SEX: 44 / M ADM STATUS: REG ER SERVICE 1512 ORDERING PHYSICIAN: NELSY BUCKNER DO PROCEDURE(s): CXRP - CHEST PORTABLE REASON: post op Abd Pain ORDER NUMBER(s): [id number], ACCESSION NUMBER(s): [id number] CHEST RADIOGRAPH Indication:post op Abd Pain Technique: Single frontal view of the chest was obtained COMPARISON: None FINDINGS: Lines and Tubes: None Lungs: Bibasilar subsegmental atelectasis. Pleura: No effusion. No pneumothorax. Cardiomediastinal contours: Unremarkable Bones: Unremarkable IMPRESSION: Bibasilar subsegmental atelectasis. ATED BY: FELIX SHAH MD DICTATED DATE/TIME: 08/19/241557 SIGNED BY: FELIX SHAH MD SIGNED DATE/TIME: 08/19/241557 CC: [place] [address] Ph: [phone] DIAGNOSTIC IMAGING Diagnostic Imaging Report : [id number] Signed PATIENT: CAPRI DONALD ACCT: [id number] UNIT: [id number] : 1980 LOC: EAST ROOM / BED: 0244A / 7 AGE / SEX: 44 / M ADM STATUS: ADM IN SERVICE 1000 ORDERING PHYSICIAN: MIHAI GONZALES PROCEDURE(s): ABPLC - CT ABD PELVIS W CON-ORAL & IV REASON: Intra-abdominal abscess, for surgical complication, rupture ORDER NUMBER(s): [id number], ACCESSION NUMBER(s): [id number] CLINICAL INFORMATION: 44 years old, Male; Intra-abdominal abscess, for surgical complication, rupture. TECHNIQUE: Axial CT images of the abdomen and pelvis were obtained after the uneventful administration of 100 mL Omnipaque 300 IV contrast. GI contrast was also administered prior to the examination. Coronal and sagittal reformatted images were obtained, reviewed, and stored. All CT scans at this medical facility are performed using dose modulation techniques as appropriate to a performed exam including the following: Automated exposure control was utilized; adjustment of the MA and/or KV according to patient size; and use of iterative reconstruction technique. CTDIvol = 15.76, mGy DLP = 1199.14 mGy-cm COMPARISON: CT CT AB PEL WITH IV CON ONLY on DOS: 08/19/24 FINDINGS: Lung bases: Dependent atelectasis and consolidation in the lung bases. Liver: Unremarkable. No abnormal density or focal lesion. Biliary: Mildly distended gallbladder. No calcified gallstones visualized. Spleen: Unremarkable. Pancreas: Unremarkable. No inflammatory changes, ductal dilatation, or mass identified. Adrenal glands: Unremarkable. No mass. Kidneys: Hydronephrosis. Mild bilateral perinephric fluid and stranding. Exophytic cyst at the posterolateral aspect of the right kidney measures up to 1.9 cm in greatest dimension. Aorta/Vascular: No aneurysm or significant calcification. Retroperitoneum: No mass or lymphadenopathy. Bowel/mesentery: Postsurgical changes are seen in the right lower quadrant with surgical clips visualized adjacent to the cecum and more medially in the right lower quadrant. There is a fluid collection measuring up to 2.6 x 5.6 x 3.4 cm with mild adjacent enhancement. Previously this collection measured 4.9 x 2.5 x 3.7 cm. There is a fluid-filled tract extending from the area of postsurgical changes in the right lower quadrant to the central aspect of the pelvis (along a portion of the course of the previously seen surgical drain), extending posterior to the bladder, where there is a collection measuring 3.0 x 5.2 x 3.3 cm (series 2 image 84 corresponding to series 602 image 67). Previously, this collection measured 2.2 x 5.3 x 4.1 cm. There is mild adjacent inflammatory stranding. The collection abuts the caudal aspect of the rectum. There is wall thickening of the rectum and adjacent portions of the sigmoid colon, possibly secondary inflammation of the rectosigmoid colon from the inflammatory changes. There is also wall thickening of loops of small bowel in the right lower quadrant. Pelvic organs: Grossly unremarkable. Bladder: Mild circumferential thickening of the bladder wall. Mild adjacent stranding. Abdominal wall: No mass or hernia. Bones: No acute fracture or focal intraosseous lesion. IMPRESSION: 1. Postsurgical changes in the right lower quadrant as described above. Fluid collection in the right lower quadrant and fluid-filled tract extending to the pelvis posterior to the bladder, suspected abscesses with surrounding inflammatory changes. 2. Wall thickening and inflammatory changes involving the rectosigmoid colon and small bowel in the pelvis and right lower quadrant, likely secondary inflammation of the bowel from the suspected infected fluid collections. 3. Mild circumferential thickening of the bladder wall with mild adjacent stranding. Correlate clinically for cystitis. 4. Gallbladder is mildly distended. No gallstones visualized. 5. Atelectasis and consolidations in the lung bases. 6. Additional findings as detailed above. ATED BY: VARGHESE CHRISTIAN DO DICTATED DATE/TIME: 08/21/24 1209 SIGNED BY: VARGHESE CHRISTIAN DO SIGNED DATE/TIME: 08/21/24 1209 CC: Patient: CAPRI DONALD Acct: [id number] : 1980 Loc: [facility] Age/Sex: 44/M Room: [address] [place] [address] / Bed: 7 Attending Phy: TRES STAFFORD RESIDENT Operative Report [id number] INTRAABD ABSCESS/SEROMA S/P LAP APPENDECTOMY FOR RUPTURED APPENDICITIS LAP DRAINAGE OF INTRA ABD ABSCESS AND PELVIC SEROMA LAP KEELY EBL 25 CC ONE DRAIN NO COMPLICATIONS DAYANARA SADLER MD Aug 22, 2024 10:03 DICTATED BY:DAYANARA SADLER MD DICTATED DATE/TIME:08/22/24 1003 ELECTRONICALLY SIGNED BY:DAYANARA SADLER MD 08/22/24 1003 ELECTRONICALLY CO-SIGNED BY: Condition at Discharge: Fair Final Diagnosis/Problems List # Post surgical intra-abdominal abscess s/p surgical drainage. # Sepsis due to above at presentation, resolved. Leukocytes subsided, off of sepsis. # History of Status post ruptured appendix s/p surgical intervention # Known allergic to fluoroquinolones, penicillins and morphine # Bibasilar atelectasis incentive spirometry q1 hour continue. # normocytic anemia, hemodynamically stable, H&H stable # Intra-abdominal viscus rupture , ruled out. # PUD prophylaxis continue Oral ppi. # Thrombocytosis, improved # grade 1 obesity Discharge Disposition: Home Discharge Instruct/Medications Diet: Regular Activity: No Restrictions, As Tolerated Follow Up/Referral: Follow up with primary care physician within 1-2 weeks of discharge. Follow up with General surgery and Infectious Disease team as scheduled. Medications: As per MAR Oral anti bacterial medication started. Please take them and discuss with Infectious Disease for need of further IV antibiotics. Discharge Statement: "Patient was advised to return to the ER or call 911 if any headaches, dizziness, shortness of breath, chest pain, abdominal pain, bleeding, fevers, or worsening of medical condition. Patient was counseled about treatment plan, medications, possible side effects, patientverbalized understanding. All questions were answered to the best of my ability. This discharge took greater then 30 minutes in planning, reviewing documentation, counseling the patient, and discussing with other team members." Physical Exam Comments Examination: GENERAL:Normal, HEENT:Normal, NECK:Normal, LUNGS:Normal, CVS:Normal, ABDOMEN:Abnormal (Patient is still on MARYSE drain, serosanguineous fluid output. On abdominal binder, no infection or discharge noted), MSK:Abnormal (Right upper arm recent PICC line in place. No immediate complication noted.), SKIN:Normal, NEURO:Normal ASSESSMENT ASSESSMENT Assessment Date of Service: Aug 29, 2024 Billing Provider: RUFUS SALEH MD Common Visit Codes: 18154-JRP/OBS DISCH DAY >30min Coding Comment Comment I saw and evaluated the patient. I reviewed the residents note and agree with findings and plan as documented in the residents note. Patient will like to be discharged, per ID note patient would not receive IV antibiotics at home due to insurance issue. To continue taking oral antibiotics in the meantime, we will be covered with MIHAI Degroot RESIDENT Aug 29, 2024 07:40 RUFUS SALEH MD Aug 29, 2024 21:19
[2024-08-29 10:47] LABS: Basophils # (auto) 0 10 ^3/uL (0-0.2); Basophils % (auto) 0.3 % (0.0-2.0); Hemoglobin 12.8 g/dL (13.5-17.5); Lymphocytes # (auto) 2.1 10 ^3/uL (0.4-5.4); Mean Corpuscular Hemoglobin 29.5 pg (28.0-32.0)
[2024-08-29 10:51] LABS: Eosinophils # (auto) 0.3 10 ^3/uL (0-0.8); Eosinophils % (auto) 2.5 % (0.0-7.0); Hematocrit 37.1 % (41.0-53.0); Lymphocytes % (auto) 19.3 % (10.0-50.0); Mean Corpuscular Hgb Conc. 34.5 g/dL (32.0-36.0); Mean Corpuscular Volume 85.4 fL (80.0-100.0); Monocytes # (auto) 0.7 10 ^3/uL (0-1.3); Monocytes % (auto) 6.5 % (0.0-12.0); Neutrophils # (auto) 7.7 10 ^3/uL (1.6-8.6); Neutrophils % (auto) 71.4 % (37.0-80.0); Platelet Count (auto) 502 10^3/uL (140-450); Red Blood Cells 4.34 10^6/uL (4.5-5.90); Red Cell Distribution Width 13.4 % (11.8-14.3); White Blood Cell 10.8 10^3/uL (4.4-10.8)
[2024-08-29] MEDS ORDERED: MET500T PO (13:14)
[2024-08-29] MEDS ORDERED: CEFP200T15 PO ×2 (13:14→17:12)
--- NOTE | 2024-08-29 17:07 | DVHDS2 ---
ASSESSMENT ASSESSMENT Assessment # Post surgical intra-abdominal abscess s/p surgical drainage. # Sepsis due to above at presentation, resolved. Leukocytes subsided, off of sepsis. # History of Status post ruptured appendix s/p surgical intervention # Known allergic to fluoroquinolones, penicillins and morphine # Bibasilar atelectasis incentive spirometry q1 hour continue. # normocytic anemia, hemodynamically stable, H&H stable # Intra-abdominal viscus rupture , ruled out. # PUD prophylaxis continue Oral ppi. # Thrombocytosis, improved # grade 1 obesity MIHAI GONZALES RESIDENT Aug 29, 2024 17:07
[2024-08-29] MEDS ORDERED: METR-344 PO (17:12)
--- NOTE | 2024-08-29 21:54 | DVHPN2 ---
Consult Progress Note Date Seen: Aug 29, 2024 Subjective Patient reports: Other (Tolerating his cefpadoxine and flagell without any nasea vomiting or diarrhea. no drainage is coming from the drainage site ) Objective vital signs Vital Sign Date Time Temp Pulse Resp B/P (MAP) Pulse Ox O2 Delivery O2 Flow Rate FiO2 08/29/24 17:06 98.3 84 16 118/94 (102) 96 98.3 08/29/24 07:44 Room Air* 0 21 Total Intake and Output 08/28/24 08/28/24 08/29/24 15:00 23:00 07:00 Intake Total 375 ml 2045 ml 850 ml Balance 375 ml 2045 ml 850 ml medications Current Medications Medications Dose Ordered Sig/Leonela Route Start Time Stop Time Status Last Admin Dose Admin Meropenem 50 ml @ 50 mls/hr Q8HR IV 08/20/24 14:00 UNV Vancomycin HCl 0 ml @ 0 mls/hr UD IV 08/26/24 08:00 Cancel Vancomycin HCl 200 ml @ 200 mls/hr Q8H IV 08/26/24 18:00 Cancel PHYSICAL EXAM: - GENERAL: Alert and oriented x 3. No acute distress. Well-nourished. - EYES: EOMI. Anicteric. - HENT: Moist mucous membranes. No scleral icterus. No cervical lymphadenopathy. - LUNGS: Clear to auscultation bilaterally. No accessory muscle use. - CARDIOVASCULAR: Regular rate and rhythm. No murmur. No JVD. - ABDOMEN: Soft, non-tender and non-distended. No palpable masses. drain site cdi - EXTREMITIES: No edema. Non-tender.?SKIN: No rashes or lesions. Warm. - NEUROLOGIC: No focal neurological deficits. CN II-XII grossly intact, but not individually tested. - PSYCHIATRIC: Cooperative. Appropriate mood and affect. laboratory and microbiology Laboratory Tests 08/29/24 10:18 08/27/24 05:23 08/24/24 05:27 Test 08/24/24 05:27 Range/Units Serum Glucose 86 74-106 mg/dL Problem List/Assessment/Plan Problems(with codes): (1) Postoperative complication (2) Leukocytosis (3) Fever (4) Intra-abdominal abscess (5) Sepsis (6) Post op infection (7) Acute abdominal pain (8) Acute appendicitis (9) Leukocytosis, unspecified (10) Intractable nausea and vomiting Problem List/Assessment/Plan ASSESSMENT AND PLAN: ID Problem List: Acute appendicitis Intra-abdominal abscess Recurrence of abscess Sepsis Assessment: This is a 44-year-old male with a past medical history of chronic back pain and morbid obesity. The patient initially presented on August 07 with acute abdominal pain, nausea, and vomiting. Labs at the time showed a WBC count of 22, platelets of 227, BUN of 9, and creatinine of 0.8. The patient underwent a laparoscopic appendectomy and lysis of adhesions on the same day. Post-surgical findings on August 08 indicated small bilateral pleural effusions, free air in the right lower quadrant likely secondary to surgery, and extensive post-surgical inflammatory changes in the right lower quadrant. Subsequent imaging showed a developing abscess in the right lower quadrant. reasons for abscess recurrence: e.coli is resistant to outpatient oral levofloxacin given (levofloxacin has low barrier to resistance) abscesses are rather large in size (some as large as 5cm) for oral antibiotics to be sufficient - there is minimal drainage output thus far from the drain to rectify this possibly of bowel leak 08/28: Doing well , would expect more drainage than we are getting Plan: given that patients insurance is not covering home health antibitotics , continue oral cefpodoxime 300 milligrams 2x a day along with oral flagel 500 milligrams every 8 hours for 30 days Continue drainage of the abscess. Surgical follow-up to monitor and eventually remove the drain. Schedule follow-up CT in one month post-antibiotics to ensure resolution of the abscess. Plan discussed with: Other Dietary Evaluation Review Comments: Advance to diet as tolerated after the surgery. Monitor PO intake to meet 75% of his needs, Expected Outcomes/Goals: Healed incisions. Gradual weight loss. RAFAEL THAKUR MD Aug 29, 2024 21:54
== END 2024-08-29 18:15 | disposition home health service (06) | DRG 856 ==
LOC: ER 14:02 → OVERFLOW 22:43 → UNDOADMIN 22:47 → EAST 08-20 03:38 → CENTRAL 08-25 19:00
PROVIDERS: ADMIT Student in an Organized Health Care Education/Training Program; ATTEND Student in an Organized Health Care Education/Training Program
PROC: 0W9G40Z Drainage of Peritoneal Cavity with Drainage Device, Percutaneous Endoscopic Approach (ICD-10-PCS; principal; 2024-08-22 08:39)
PROC: 02HV33Z Insertion of Infusion Device into Superior Vena Cava, Percutaneous Approach (ICD-10-PCS; 2024-08-27)
PROC: B548ZZA Ultrasonography of Superior Vena Cava, Guidance (ICD-10-PCS; 2024-08-27)
DX: T81.43XA Infection following a procedure, organ and space surgical site, initial encounter (principal); A41.9 Sepsis, unspecified organism; K65.1 Peritoneal abscess; J98.11 Atelectasis; E66.9 Obesity, unspecified; D64.9 Anemia, unspecified; G89.29 Other chronic pain; D75.839 Thrombocytosis, unspecified; Z88.0 Allergy status to penicillin; Z90.49 Acquired absence of other specified parts of digestive tract; Y84.8 Other medical procedures as the cause of abnormal reaction of the patient, or of later complication, without mention of misadventure at the time of the procedure; Y92.89 Other specified places as the place of occurrence of the external cause; Z88.8 Allergy status to other drugs, medicaments and biological substances; Z79.899 Other long term (current) drug therapy; Z82.49 Family history of ischemic heart disease and other diseases of the circulatory system; Z68.33 Body mass index [BMI] 33.0-33.9, adult; Z88.1 Allergy status to other antibiotic agents; Z88.5 Allergy status to narcotic agent
CPT/HCPCS: 36415; 36569; 71045; 74177; 80053; 80202; 80307; 81001; 82270; 82306; 82565; 82607; 83605; 83690; 83735; 84443; 85007; 85025; 85027; 85610; 85730; 86703; 87040; 87070; 87075; 87077; 87186; G0378; J0131; J1100; J1885; J2185; J2250; J2405; J2470; J2543; J2704; J3490

== ENCOUNTER 2024-09-10 10:58 | Emergency (ER) | payer OTHER ==
[~2024-09-10] VITALS: Ht 180.3 cm; Wt 96.8 kg
[~2024-09-10 10:58] MED LIST changes: +CEFP200T15 PO; -LEVO500T91 PO
[2024-09-10 11:09] VITALS: BP 114/76; PULSE 88; RESP 14; O2SAT 98
--- NOTE | 2024-09-10 11:27 | ED.PDOC ---
History of Present Illness HPI Comments 44 y.o male presents to the ED for an evaluation of MARYSE drain malfunction x 1 day. Patient reports drain was placed 3 weeks ago s/p ruptured appendicitis, followed up with surgeon Dr Adorno who removed the drain, but the same day pt states he developed an abscess and the drain was reinserted. Patient saw Dr. Jaron iglesias yesterday who advised him he needed a CT scan prior to discontinuing MARYSE drain to avoid another abscess formation but patient is awaiting approval by his insurance to undergo CT scan. Last night patient noticed the drain had no output is an concerned that is not working well or could be displaced. Patient reports he is now receiving medication via PICC line and home health nurse comes in once a week to medicate him He reports some tenderness to tubal insertion site, states he has been cleaning well at home with hydrogen peroxide and water. He denies any other areas of abdominal pain, nausea, vomiting, diarrhea, constipation, fever, chills, or discharge from tube insertion site. Chief Complaint: Tube Replacement Time Seen by MD: 11:07 Primary Care Provider: UNKNOWN Reviewed Notes: Nurses Notes, Medications, Allergies Allergies: Coded Allergies: Levofloxacin (Verified Allergy, Severe, Bradycardia, 08/19/24) Penicillins (Verified Allergy, Unknown, 08/06/24) Home Meds Active Scripts Metronidazole (Flagyl) 500 Mg Tab, 1 TAB PO TID for 30 Days, #90 TAB Prov:TEDDY VANN RESIDENT 08/29/24 Cefpodoxime Proxetil (Cefpodoxime Proxetil) 200 Mg Tab, 1 TAB PO BID for 30 Days, #60 TAB Prov:TEDDY VANN RESIDENT 08/29/24 Hydrocodone-Acetaminophen (Hydrocodone Bitartrate/AC 5-325 mg) 1 Tab Tab, 1 TAB PO QID PRN, #30 TAB Prov:CHANDRIKA VELASCO MD 08/11/24 Reported Medications Allium Sativan Extract (GARLIC) 200 Mg Tab, 1 TAB PO DAILY, TAB 08/07/24 Ascorbic Acid (VITAMIN C TABLET) 500 Mg Tb, 1 TAB PO DAILY, #30 TAB 3 Refills 08/07/24 Information Source: Patient Mode of Arrival: Ambulatory Timing: Days (1) Duration: Since onset Past Medical History PAST MEDICAL HISTORY: Denies Surgical History: Appendectomy Family History Family History: Unknown Social History Smoker: Non-Smoker Alcohol: Denies ETOH Use Drugs: Denies Drug Use Lives In: Home Constitutional: denies: chills, diaphoresis, fatigue, fever, malaise, sweats, weakness, others EENTM: denies: blurred vision, double vision, ear bleeding, ear discharge, ear drainage, ear pain, ear ringing, eye pain, eye redness, hearing loss, mouth pain, mouth swelling, nasal discharge, nose bleeding, nose congestion, nose pain, photophobia, tearing, throat pain, throat swelling, voice changes, others Respiratory: denies: cough, hemoptysis, orthopnea, SOB at rest, shortness of breath, SOB with excertion, stridor, wheezing, others Cardiovascular: denies: chest pain, dizzy spells, diaphoresis, Dyspnea on exertion, edema, irregular heart beat, left arm pain, lightheadedness, palpitations, PND, syncope, others Gastrointestinal: denies: abdomen distended, abdominal pain, blood streaked bowels, constipated, diarrhea, dysphagia, difficulty swallowing, hematemesis, melena, nausea, poor appetite, poor fluid intake, rectal bleeding, rectal pain, vomiting, others Genitourinary: denies: burning, dysuria, flank pain, frequency, hematuria, incontinence, penile discharge, penile sore, pain, testicle pain, testicle swelling, urgency, others Neurological: denies: dizziness, fainting, headache, left sided numbness, left sided weakness, numbness, paresthesia, pre-existing deficit, right sided nu mbness, right sided weakness, seizure, speech problems, tingling, tremors, weakness, others Musculoskeletal: denies: back pain, gout, joint pain, joint swelling, muscle pain, muscle stiffness, neck pain, others Integumetry: denies: bruises, change in color, change in hair/nails, dryness, laceration, lesions, lumps, rash, wounds, others Allergic/Immunocompromised: denies: Difficulty Healing, Frequent Infections, Hives, Itching, others Hematologic/Lymphatic: denies: anemia, blood clots, easy bleeding, easy bruising, swollen glands, others Endocrine: denies: excessive hunger, excessive sweating, excessive thirst, excessive urination, flushing, intolerance to cold, intolerance to heat, unexplained weight gain, unexplained weight loss, others Psychiatric: denies: anxiety, bipolar disorder, depression, hopeless, panic disorder, schizophrenia, sleepless, suicidal, others All Other Systems: Reviewed and Negative Physical Exam General Appearance: No Apparent Distress, Normal HEENT: Normal ENT Inspection Neck: Full Range of Motion, Normal Inspection Respiratory: Lungs Clear, No Accessory Muscle Use, No Respiratory Distress, Normal Breath Sounds Cardiovascular: No Edema, No JVD, Regular Rate/Rhythm Breast Exam: Deferred Gastrointestinal: Non Tender, Soft, Other (Infraumbilical MARYSE drain site appears clean, dry and intact with very minimal surrounding erythema without edema or discharge. Minimal serosanguineous discharge in the collection bulb. Collection bulb does not hold suction.) Genitalia: Deferred Pelvic: Deferred Rectal: Deferred Extremities: Normal inspection, Normal range of motion, No pedal edema Neurologic: Alert, No Motor Deficits, Normal Affect, Normal Mood, No Sensory Deficits Cerebellar Function: NOT DONE Reflexes: NOT DONE Skin: Dry, Normal Color, Warm Lymphatic: NOT DONE Was a procedure done? Was a procedure done?: No Differential Dx Considerations may include: Tube/bulb malfunction, tube displacement, resolution of abscess, among others X-Ray, Labs, Meds, VS Vital Signs Date Time Temp Pulse Resp B/P (MAP) Pulse Ox O2 Delivery O2 Flow Rate FiO2 09/10/24 11:09 97.3 88 14 114/76 (89) 98 Lab Test 09/10/24 11:30 Range/Units White Blood Count 7.2 4.4-10.8 10^3/uL Red Blood Count 4.66 4.5-5.90 10^6/uL Hemoglobin 13.6 13.5-17.5 g/dL Hematocrit 39.8 L 41.0-53.0 % Mean Corpuscular Volume 85.3 80.0-100.0 fL Mean Corpuscular Hemoglobin 29.1 28.0-32.0 pg Mean Corpuscular Hemoglobin Concent 34.1 32.0-36.0 g/dL Red Cell Distribution Width 13.5 11.8-14.3 % Platelet Count 338 140-450 10^3/uL Mean Platelet Volume 7.1 6.9-10.8 fL Neutrophils (%) (Auto) 62.3 37.0-80.0 % Lymphocytes (%) (Auto) 27.1 10.0-50.0 % Monocytes (%) (Auto) 6.4 0.0-12.0 % Eosinophils (%) (Auto) 2.9 0.0-7.0 % Basophils (%) (Auto) 1.3 0.0-2.0 % Neutrophils # (Auto) 4.5 1.6-8.6 10 ^3/uL Lymphocytes # (Auto) 2.0 0.4-5.4 10 ^3/uL Monocytes # (Auto) 0.5 0-1.3 10 ^3/uL Eosinophils # (Auto) 0.2 0-0.8 10 ^3/uL Basophils # (Auto) 0.1 0-0.2 10 ^3/uL Nucleated Red Blood Cells 0.0 % Sodium Level 139 136-145 mmol/L Potassium Level 4.2 3.5-5.1 mmol/L Chloride Level 105 98-107 mmol/L Carbon Dioxide Level 25 20-31 mmol/L Anion Gap 9 5-15 Blood Urea Nitrogen 15 9-23 mg/dL Creatinine 0.77 0.700-1.30 mg/dL Glomerular Filtration Rate Calc 112 >90 mL/min BUN/Creatinine Ratio 19.5 10.0-20.0 Serum Glucose 96 74-106 mg/dL Calcium Level 9.9 8.7-10.4 mg/dL PROCEDURE(s): ABPL - CT AB PEL WO CON-NO ORAL OR IV REASON: EVAL MARYSE DRAIN POSITION ORDER NUMBER(s): [id number], ACCESSION NUMBER(s): [id number] Exam: CT CT AB PEL WO CON-NO ORAL OR IV History: EVAL MARYSE DRAIN POSITION Comparison Study: CT CT ABD PELVIS W CON-ORAL IV on DOS: 08/21/24, CT CT AB PEL WITH IV CON ONLY on DOS: 08/19/24, CT CT AB PEL WO CON-NO ORAL OR IV on DOS: 08/07/24 Technique: Multidetector spiral CT of the abdomen was performed from lung bases to pubic symphysis. Imaging was performed without IV contrast. Axial, coronal and sagittal multiplanar reformats were obtained from the axial data set by the technologist. Radiation Dose : 1. Abdomen/Pelvis: CTDIvol 22 mGy, DLP 1268.33 mGy*cm. Findings: Evaluation of solid organs is limited due to lack of intravenous contrast use. Lung Bases: Bibasilar scarring. No acute or significant lung base finding. Nor mal heart size. No pleural or pericardial effusion. Liver: The liver is normal in size. No focal lesions. Gallbladder and Biliary Tree: Unremarkable Spleen: Unremarkable Pancreas: The pancreas is grossly normal in appearance. Adrenal Glands: Unremarkable Kidneys: Kidneys are grossly normal without calculi or hydronephrosis. Bladder: Grossly unremarkable for degree of distention. Bowel: The stomach is grossly normal in appearance. Small bowel and colon are normal in caliber and distribution. Status post appendectomy. Drainage catheter is seen in the right lower quadrant with trace phlegmon adjacent to the tip but no significant abscess. Ytapgicz-ay-ldylh colonic stool burden. Ascites: Absent Lymphadenopathy: No mesenteric, retroperitoneal or periportal lymphadenopathy. Abdominal Wall and Mesentery: Unremarkable. Vasculature: The visualized abdominal aorta is normal in size and caliber. Evaluation of abdominal and pelvic vessels is limited due to lack of intravenous contrast. Pelvic Organs: Unremarkable Musculoskeletal: No aggressive focal bony lesions, acute fractures or dislocation. IMPRESSION: 1. Status post appendectomy. 2. Drainage catheter seen in the right lower quadrant with trace phlegmon adjacent to the tip but no significant abscess. The previously described right lower quadrant fluid collection has essentially resolved. Radiation optimization: All CT scans at this facility use at least one of these dose optimization techniques: automated exposure control mA and/or kV a djustment per patient size (includes targeted exams where dose is matched to clinical indication) or iterative reconstruction. X-Ray, Labs, Meds, VS Comment 44-year-old male with a history of recent appendectomy and MARYSE drain insertion for intra-abdominal abscess presenting complaining of diminished output from the drain, unclear if due to tube/bulb malfunction Vitals remarkable for temperature 97.3 Exam MARYSE drain site in infra umbilical area appears clean, dry and intact with minimal surrounding erythema without discharge or significant tenderness. Minimal serosanguineous discharge within the tube, bulb can not hold suction. CT abdomen and pelvis IMPRESSION: 1. Status post appendectomy. 2. Drainage catheter seen in the right lower quadrant with trace phlegmon adjacent to the tip but no significant abscess. The previously described right lower quadrant fluid collection has essentially resolved. CBC, basic metabolic panel, unremarkable for any abnormalities of acute significance. Discussed with Dr. Adorno, who the patient in the ED and removed the drain. On re-evaluation, patient is resting comfortably with stable vitals, abdominal exam benign. Per Dr. Adorno, patient may be discharged home. Time of 1ST Reevaluation: 11:18 Reevaluation 1ST: Unchanged Time of 2ND Reevaluation: 11:54 Reevaluation 2ND: Unchanged Patient Education/Counseling: Diagnosis, Treatment, Prognosis Family Education/Counseling: No Family Present Departure 1 Departure Time of Disposition: 12:34 Impression: Primary Impression: MARYSE drain, broken Qualified Codes: T85.698A - Other mechanical complication of other specified internal prosthetic devices, implants and grafts, initial encounter Disposition: HOME / SELF CARE / HOMELESS Condition: Stable Additional Instructions: Your blood tests were unremarkable. Your CT scan report is attached. Follow-up with primary doctor as needed. Return to ER for worsening pain, redness around the wound site, fever or any other concern. Discharged With: Spouse Critical Care Note Critical Care Time?: No Stability Stability form required: No I personally scribed for SINDY VENTURA MD ([facility]) on 09/10/24 at 11:27. Electronically submitted by Radha Rodriguez ([facility]). I personally scribed for SINDY VENTURA MD ([facility]) on 09/10/24 at 13:16. Electronically submitted by Radha Rodriguez ([facility]). SINDY VENTURA MD Sep 10, 2024 11:27
[2024-09-10 11:47] LABS: Basophils # (auto) 0.1 10 ^3/uL (0-0.2); Basophils % (auto) 1.3 % (0.0-2.0); Eosinophils # (auto) 0.2 10 ^3/uL (0-0.8); Eosinophils % (auto) 2.9 % (0.0-7.0); Hematocrit 39.8 % (41.0-53.0); Hemoglobin 13.6 g/dL (13.5-17.5); Lymphocytes % (auto) 27.1 % (10.0-50.0); Mean Corpuscular Hemoglobin 29.1 pg (28.0-32.0); Mean Corpuscular Hgb Conc. 34.1 g/dL (32.0-36.0); Mean Corpuscular Volume 85.3 fL (80.0-100.0); Monocytes # (auto) 0.5 10 ^3/uL (0-1.3); Monocytes % (auto) 6.4 % (0.0-12.0); Neutrophils # (auto) 4.5 10 ^3/uL (1.6-8.6); Neutrophils % (auto) 62.3 % (37.0-80.0); Platelet Count (auto) 338 10^3/uL (140-450); Red Blood Cells 4.66 10^6/uL (4.5-5.90); Red Cell Distribution Width 13.5 % (11.8-14.3); White Blood Cell 7.2 10^3/uL (4.4-10.8)
[2024-09-10 11:55] LABS: Chloride 105 mmol/L (98-107); Potassium 4.2 mmol/L (3.5-5.1); Sodium 139 mmol/L (136-145)
[2024-09-10 11:56] LABS: Anion Gap 9 (5-15); Calcium 9.9 mg/dL (8.7-10.4); Carbon Dioxide 25 mmol/L (20-31)
[2024-09-10 12:01] LABS: BUN/Creatinine Ratio 19.5 (10.0-20.0); Blood Urea Nitrogen 15 mg/dL (9-23); Glucose 96 mg/dL (74-106)
--- NOTE | 2024-09-10 12:12 | DVH ---
Exam: CT CT AB PEL WO CON-NO ORAL OR IV History: EVAL MARYSE DRAIN POSITION Comparison Study: CT CT ABD PELVIS W CON-ORAL IV on DOS: 08/21/24, CT CT AB PEL WITH IV CON ONLY o n DOS: 08/19/24, CT CT AB PEL WO CON-NO ORAL OR IV on DOS: 08/07/24 Technique: Multidetector spiral CT of the abdomen was performed from lung bases to pubic symphysis. Imaging was performed without IV contrast. Axial, coronal and sagittal multiplanar reformats were ob tained from the axial data set by the technologist. Radiation Dose : 1. Abdomen/Pelvis: CTDIvol 22 mGy, DLP 1268.33 mGy*cm. Findings: Evaluation of solid organs is limited due to lack of intravenous contrast use. Lung Bases: Bibasilar scarring. No acute or significant lung base finding. Normal heart size. No ple ural or pericardial effusion. Liver: The liver is normal in size. No focal lesions. Gallbladder and Biliary Tree: Unremarkable Spleen: Unremarkable Pancreas: The pancreas is grossly normal in appearance. Adrenal Glands: Unremarkable Kidneys: Kidneys are grossly normal without calculi or hydronephrosis. Bladder: Grossly unremarkable for degree of distention. Bowel: The stomach is grossly normal in appearance. Small bowel and colon are normal in caliber and d istribution. Status post appendectomy. Drainage catheter is seen in the right lower quadrant with tr surendra phlegmon adjacent to the tip but no significant abscess. Hzcgywbs-ci-plech colonic stool burden. Ascites: Absent Lymphadenopathy: No mesenteric, retroperitoneal or periportal lymphadenopathy. Abdominal Wall and Mesentery: Unremarkable. Vasculature: The visualized abdominal aorta is normal in size and caliber. Evaluation of abdominal a nd pelvic vessels is limited due to lack of intravenous contrast. Pelvic Organs: Unremarkable Musculoskeletal: No aggressive focal bony lesions, acute fractures or dislocation. IMPRESSION: 1. Status post appendectomy. 2. Drainage catheter seen in the right lower quadrant with trace phlegmon adjacent to the tip but no significant abscess. The previously described right lower quadrant fluid collection has essentially r esolved. Radiation optimization: All CT scans at this facility use at least one of these dose optimization kendal hniques: automated exposure control mA and/or kV adjustment per patient size (includes targeted exam s where dose is matched to clinical indication) or iterative reconstruction.
--- NOTE | 2024-09-10 13:33 | DVHINCON2 ---
Date of service: Sep 10, 2024 Family History: FH: heart disease G8 MOTHER G8 FATHER G8 BROTHER Parents G8 MOTHER G8 FATHER Allergies: Coded Allergies: Levofloxacin (Verified Allergy, Severe, Bradycardia, 08/19/24) Penicillins (Verified Allergy, Unknown, 08/06/24) Home Meds Active Scripts Metronidazole (Flagyl) 500 Mg Tab, 1 TAB PO TID for 30 Days, #90 TAB Prov:TEDDY VANN RESIDENT 08/29/24 Cefpodoxime Proxetil (Cefpodoxime Proxetil) 200 Mg Tab, 1 TAB PO BID for 30 Days, #60 TAB Prov:[facility] RESIDENT 08/29/24 Hydrocodone-Acetaminophen (Hydrocodone Bitartrate/AC 5-325 mg) 1 Tab Tab, 1 TAB PO QID PRN, #30 TAB Prov:CHANDRIKA VELASCO MD 08/11/24 Reported Medications Allium Sativan Extract (GARLIC) 200 Mg Tab, 1 TAB PO DAILY, TAB 08/07/24 Ascorbic Acid (VITAMIN C TABLET) 500 Mg Tb, 1 TAB PO DAILY, #30 TAB 3 Refills 08/07/24 Vital Signs Vital Signs Date Time Temp Pulse Resp B/P (MAP) Pulse Ox O2 Delivery O2 Flow Rate FiO2 09/10/24 11:09 97.3 88 14 114/76 (89) 98 Labs/Diagnostic Data Labs Test 09/10/24 11:30 Range/Units White Blood Count 7.2 4.4-10.8 10^3/uL Red Blood Count 4.66 4.5-5.90 10^6/uL Hemoglobin 13.6 13.5-17.5 g/dL Hematocrit 39.8 L 41.0-53.0 % Mean Corpuscular Volume 85.3 80.0-100.0 fL Mean Corpuscular Hemoglobin 29.1 28.0-32.0 pg Mean Corpuscular Hemoglobin Concent 34.1 32.0-36.0 g/dL Red Cell Distribution Width 13.5 11.8-14.3 % Platelet Count 338 140-450 10^3/uL Mean Platelet Volume 7.1 6.9-10.8 fL Neutrophils (%) (Auto) 62.3 37.0-80.0 % Lymphocytes (%) (Auto) 27.1 10.0-50.0 % Monocytes (%) (Auto) 6.4 0.0-12.0 % Eosinophils (%) (Auto) 2.9 0.0-7.0 % Basophils (%) (Auto) 1.3 0.0-2.0 % Neutrophils # (Auto) 4.5 1.6-8.6 10 ^3/uL Lymphocytes # (Auto) 2.0 0.4-5.4 10 ^3/uL Monocytes # (Auto) 0.5 0-1.3 10 ^3/uL Eosinophils # (Auto) 0.2 0-0.8 10 ^3/uL Basophils # (Auto) 0.1 0-0.2 10 ^3/uL Nucleated Red Blood Cells 0.0 % Sodium Level 139 136-145 mmol/L Potassium Level 4.2 3.5-5.1 mmol/L Chloride Level 105 98-107 mmol/L Carbon Dioxide Level 25 20-31 mmol/L Anion Gap 9 5-15 Blood Urea Nitrogen 15 9-23 mg/dL Creatinine 0.77 0.700-1.30 mg/dL Glomerular Filtration Rate Calc 112 >90 mL/min BUN/Creatinine Ratio 19.5 10.0-20.0 Serum Glucose 96 74-106 mg/dL Calcium Level 9.9 8.7-10.4 mg/dL Assessment 160409 AFEBRILE VSS ABD SOFT NON FUNCTION DRAIN TUBE S/P DRAINAGE OF INTRABD ABSCESS FOLLOWING LAP APPENDECTOMY FOR PERFORATED APPENDICITIS REPEAT CT SCAN ABD ABSCESS RESOLUTION NON FUNCTION DRAIN DC DRAIN DONE AT BEDSIDE WBC WNL NO COMPLICATIONS CLEARED FOR DISCHARGE INSTRUCTIONS RE DIET ACTIVITY F/UP GIVEN Plan discussed with: Patient DAYANARA SADLER MD Sep 10, 2024 13:33
--- NOTE | 2024-09-10 21:40 | DVHINCON2 ---
DATE OF CONSULTATION: 09/10/2024 HISTORY OF PRESENT ILLNESS: This patient is known to me. He is 44 years old. He has had surgery done earlier, the first surgery was a laparoscopic appendectomy and drainage of abscess for a perforated appendicitis and then he developed a recurrent abscess in the right lower quadrant, for which I could not access it. So, he was readmitted and had a repeat laparoscopy done, drainage of the right lower quadrant residual abscess and he did very well after that and he was discharged and then he was being followed up in my office regarding the care of the drainage tube and he was advised repeat CT scan of the abdomen and pelvis to determine the need for removal of the drainage tube and he was seen by me in the Emergency Room at [facility] as he could not get an appointment for his repeat CT scan and based upon the report of the CT scan, there was no residual abscess noted and his drainage catheter was nonfunctional any way with no drainage coming out and he was afebrile with no nausea, vomiting. No constipation, diarrhea and I got to see him in the Emergency Room. PAST MEDICAL HISTORY: Please refer to records. PAST SURGICAL HISTORY: As mentioned above. PHYSICAL EXAMINATION: VITAL SIGNS: He is afebrile, stable signs. HEENT: With no evidence of pallor, cyanosis, or jaundice. NECK: Supple, nontender with no thyromegaly, lymphadenopathy. CHEST AND LUNGS: Clear. HEART: Within normal limits. ABDOMEN: Soft. Nonfunctioning drainage tube. The wounds are healed and closed. NEUROLOGIC: Not assessed. EXTREMITIES: Unremarkable. LABORATORY DATA: White cell count is 7.2 with no complications. The CT scan reporting with resolving intra-abdominal abscess, inflammatory situation. PLAN: Will be to discontinue the nonfunctional drainage tube at the bedside. The patient was prepped and draped in the usual sterile fashion and the suturing material around the drainage tube was removed and the drainage tube was gradually pulled out without any complication. Dressings applied. The patient tolerated the procedure well and was then discharged, given discharge instructions regarding followup with his primary doctor. Montez Adorno MD RG/HEM TID: [id number] RECEIPT: [id number] cc: Yuridia Eduardo MD
== END 2024-09-10 13:47 | disposition home or self-care (01) ==
LOC: ER 10:58
DX: T85.698A Other mechanical complication of other specified internal prosthetic devices, implants and grafts, initial encounter (principal); Z90.49 Acquired absence of other specified parts of digestive tract; Z88.0 Allergy status to penicillin; Z88.1 Allergy status to other antibiotic agents; Z79.899 Other long term (current) drug therapy; Y92.89 Other specified places as the place of occurrence of the external cause
CPT/HCPCS: 36415; 74176; 80048; 85025